=== PATIENT | male | born 1980 | race Caucasian/White ===

== ENCOUNTER 2017-02-17 21:53 | Observation (INO) ==
[2017-02-18 00:05] LABS: Basophils # 0.1 K/mcL (0.0-0.2); Basophils % 0.6 %; Eosinophils # 0.5 K/mcL (0.0-0.6); Eosinophils % 3.2 %; Hematocrit 43.5 % (37.5-50.1); Hemoglobin 14.8 g/dL (12.9-16.9); Immature Granulocytes % 0.2 % (0-4); Lymphocytes % 42.1 %; Mean Corpuscular Volume 88.2 fL (83.0-100.0); Mean Platelet Volume 9.1 fL (9.4-12.4); Monocytes # 0.9 K/mcL (0.0-1.3); Monocytes % 6.6 %; Neutrophils # 6.7 K/mcL (1.6-8.9); Platelet Count 220 K/mcL (140-400); Red Blood Count 4.93 M/mcL (4.19-5.50); Red Cell Distribution Width 13.6 % (11.5-14.5); Segmented Neutrophils % 47.3 %
[2017-02-18 00:11] LABS: INR 1.4; Prothrombin Time 14.8 Seconds (9.4-12.1)
[2017-02-18 00:13] LABS: Activated Partial Thrombo Time 36.2 Seconds (26.0-36.0)
[2017-02-18 00:19] LABS: BUN/Creatinine Ratio 11 (6-26); Blood Urea Nitrogen 10 mg/dL (8-26); Calcium 9.4 mg/dL (8.6-10.8); Carbon Dioxide 22 mEq/L (19-29); Chloride 109 mEq/L (98-109); Glucose 97 mg/dL (70-99); Lipase 39 Units/L (8-78); Osmolality,Calculated 289 (280-300); Sodium 140 mEq/L (136-145); eGFR For African Americans > 60 (> 60); eGFR For Non-African Americans > 60 (> 60)
--- NOTE | 2017-02-18 01:42 | Emergency Department Note ---
Disposition Clinical Impression: IVC thrombosis Abdominal pain Qualifiers: Abdominal location: right upper quadrant Qualified Code(s): R10.11 - Right upper quadrant pain Leukocytosis Qualifiers: Leukocytosis type: other Qualified Code(s): D72.828 - Other elevated white blood cell count Disposition: Admitted As Inpatient Condition: Fair Referrals: NO,PCP [Primary Care Provider] - Forms: Work/School Release, ED Satisfaction Letter Time of Disposition: 06:49 Abdominal Pain HPI - General Chief Complaint: ED Abdominal Pain Stated Complaint: abdominal pain Time Seen by Provider: 02/17/17 22:39 Source: patient Mode of arrival: ambulatory Limitations: no limitations Nursing Notes Reviewed: Yes Vital Signs Reviewed: Yes - History of Present Illness HPI Narrative: 36-year-old male with right upper quadrant pain for the last 2 weeks, patient does a lot of gallbladder is no history of cholecystitis. He does have a history of factor V Leiden deficiency, and is chronically anticoagulated on Eliquis, adding failed warfarin and Xarelto. Patient states it out of 10 right upper quadrant pain with radiation to his back. States is worse after meals. He has had some nausea and vomiting as well denies fever chills shortness of breath or chest pain Pt Subjective Complaint: abdominal pain Onset (ago): day(s) (14) Consistency: intermittent Location: RUQ Pain Severity: moderate Pain Scale: 9 Quality: cramping, aching Radiation: RUQ, back Migration to: no migration Improves with: nothing Worsens with: nothing Associated symptoms: Reports: denies other symptoms, nausea, vomiting, hematemesis. Denies: diarrhea, fever, chills, hematochezia - Related Data Home Medications Medication Instructions Recorded Confirmed Apixaban [Eliquis] 5 mg PO DAILY 09/24/16 02/18/17 Famotidine [Pepcid] 20 mg PO DAILY PRN 02/18/17 02/18/17 Allergies Allergy/AdvReac Type Severity Reaction Status Date / Time Penicillins Allergy Hives Verified 02/18/17 06:35 All systems ED: reviewed and negative except as stated. 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 HEENT: NCAT, sclera anicteric, PERRLA bilaterally, normal external ears bilaterally, nasal septum nondeviated, average dentition, MMM Neck: normal inspection, neck is supple, trachea midline Resp: normal chest inspection, CTA bilaterally, no resp distress CV: RRR, no m/g/r GI: Positive Diane sign right upper quadrant tenderness no guarding or rigidity , no peritoneal signs, bowel sounds 4 quadrants. Back: normal inspection, no tenderness to palpation Neuro: A&O3, no gross motor or sensory deficits bilaterally Skin: No rashes, skin warm, dry, intact - General General appearance: alert, in no apparent distress Course Course Narrative: 36-year-old male with right upper quadrant tenderness to palpation, ultrasound gallbladder ordered basic lab work shows a leukocytosis. - Reevaluation(s) Reevaluation #1: After evaluation, also low bladder was negative, CT abdomen demonstrated a left common iliac venous thrombosis possible IVC thrombosis, I discussed the findings with the vascular surgeon Dr. Tyler who states of these are likely chronic occlusions, no IVC indication, however given that the patient is on Eliquis he does recommend that the patient be admitted and a consultation to hematology for further evaluation. Time: 06:30 Reevaluation #2: Spoke with the hospitalist service to admit the patient, the hospitalist once to hold off on heparin at this time given the patient is on Eliquis, Dr Falk acepting patient in stable condition. Time: 06:48 Vital Signs Temperature 98.5 F 02/17/17 23:43 Pulse Rate 83 02/17/17 23:43 Respiratory Rate 20 02/17/17 23:43 Blood Pressure 130/91 02/17/17 23:43 O2 Sat by Pulse Oximetry 96 02/17/17 23:43 Temperature 98.5 F 02/17/17 23:43 Pulse Rate 84 03/28/17 04:24 Respiratory Rate 16 02/18/17 04:24 Blood Pressure 124/88 02/18/17 04:24 O2 Sat by Pulse Oximetry 98 02/18/17 04:24 Oxygen Delivery Oxygen Delivery Room Air Abdominal Pain - MDM Narrative Medical decision making narrative: 36-year-old male with DrKaila Factor V Leiden deficiency right upper quadrant pain and leukocytosis and IVC thrombosis, admitted to medicine service for hematology consult, further evaluation - Differential Diagnosis Differential Diagnosis: Likely: diverticulitis, diverticulosis - Medical Records Medical records reviewed: Yes I reviewed the patient's medical records. - Lab Data Lab results reviewed: Yes I reviewed the patient's lab results. Result diagrams: 02/17/17 23:54 02/17/17 23:54 Lab Results 02/17/17 02/17/17 02/17/17 Range/Units 22:21 23:54 23:54 WBC 14.2 H (4.3-11.1) K/mcL RBC 4.93 (4.19-5.50) M/mcL Hgb 14.8 (12.9-16.9) g/dL Hct 43.5 (37.5-50.1) % MCV 88.2 (83.0-100.0) fL MCH 30.0 (28.0-33.3) pg MCHC 34.0 (31.6-35.5) g/dL RDW 13.6 (11.5-14.5) % Plt Count 220 (140-400) K/mcL MPV 9.1 L (9.4-12.4) fL Immature Gran % 0.2 (0-4) % Seg Neutrophils % 47.3 % Lymphocytes % 42.1 % Monocytes % 6.6 % Eosinophils % 3.2 % Basophils % 0.6 % Neutrophils # 6.7 (1.6-8.9) K/mcL Lymphocytes # 6.0 H (0.6-4.6) K/mcL Monocytes # 0.9 (0.0-1.3) K/mcL Eosinophils # 0.5 (0.0-0.6) K/mcL Basophils # 0.1 (0.0-0.2) K/mcL PT 14.8 H (9.4-12.1) Seconds INR 1.4 APTT 36.2 H (26.0-36.0) Seconds Sodium (136-145) mEq/L Potassium (3.5-4.5) mEq/L Chloride (98-109) mEq/L Carbon Dioxide (19-29) mEq/L BUN (8-26) mg/dL Creatinine (0.72-1.25) mg/dL Est GFR ( Amer) (> 60) Est GFR (Non-Af Amer) (> 60) BUN/Creatinine Ratio (6-26) Glucose (70-99) mg/dL Calculated Osmolality (280-300) Calcium (8.6-10.8) mg/dL Total Bilirubin (0.2-1.2) mg/dL Direct Bilirubin (0.0-0.5) mg/dL Indirect Bilirubin (0.0-1.2) mg/dL AST (5-34) Units/L ALT (0-55) Units/L Alkaline Phosphatase (38-126) Units/L Troponin I (0-0.03) ng/mL Serum Total Protein (6.0-8.3) g/dL Albumin (3.5-5.0) g/dL Globulin (2.4-3.5) g/dL Albumin/Globulin Ratio (1.1-2.2) Lipase (8-78) Units/L Urine Color Yellow (Yellow) Urine Clarity Clear (Clear) Urine pH 6.5 (5.0-8.0) pH Units Ur Specific [place] 1.006 L (1.010-1.025) Urine Protein Negative (Neg-Trace) mg/dL Urine Glucose (UA) Normal (Normal) mg/dL Urine Ketones Negative (Negative) mg/dL Urine Blood Negative (Negative) Urine Nitrite Negative (Negative) Urine Bilirubin Negative (Negative) Urine Urobilinogen Normal (Normal) mg/dL Ur Leukocyte Esterase Negative (Negative) Ur Culture Indicated? NO (NO) 02/17/17 02/17/17 02/17/17 Range/Units 23:54 23:54 23:56 WBC (4.3-11.1) K/mcL RBC (4.19-5.50) M/mcL Hgb (12.9-16.9) g/dL Hct (37.5-50.1) % MCV (83.0-100.0) fL MCH (28.0-33.3) pg MCHC (31.6-35.5) g/dL RDW (11.5-14.5) % Plt Count (140-400) K/mcL MPV (9.4-12.4) fL Immature Gran % (0-4) % Seg Neutrophils % % Lymphocytes % % Monocytes % % Eosinophils % % Basophils % % Neutrophils # (1.6-8.9) K/mcL Lymphocytes # (0.6-4.6) K/mcL Monocytes # (0.0-1.3) K/mcL Eosinophils # (0.0-0.6) K/mcL Basophils # (0.0-0.2) K/mcL PT (9.4-12.1) Seconds INR APTT (26.0-36.0) Seconds Sodium 140 (136-145) mEq/L Potassium 4.0 (3.5-4.5) mEq/L Chloride 109 (98-109) mEq/L Carbon Dioxide 22 (19-29) mEq/L BUN 10 (8-26) mg/dL Creatinine 0.93 (0.72-1.25) mg/dL Est GFR ( Amer) > 60 (> 60) Est GFR (Non-Af Amer) > 60 (> 60) BUN/Creatinine Ratio 11 (6-26) Glucose 97 (70-99) mg/dL Calculated Osmolality 289 (280-300) Calcium 9.4 (8.6-10.8) mg/dL Total Bilirubin 0.4 (0.2-1.2) mg/dL Direct Bilirubin 0.1 (0.0-0.5) mg/dL Indirect Bilirubin 0.3 (0.0-1.2) mg/dL AST 16 (5-34) Units/L ALT 15 (0-55) Units/L Alkaline Phosphatase 70 (38-126) Units/L Troponin I 0.01 (0-0.03) ng/mL Serum Total Protein 7.9 (6.0-8.3) g/dL Albumin 4.2 (3.5-5.0) g/dL Globulin 3.7 H (2.4-3.5) g/dL Albumin/Globulin Ratio 1.1 (1.1-2.2) Lipase 39 (8-78) Units/L Urine Color (Yellow) Urine Clarity (Clear) Urine pH (5.0-8.0) pH Units Ur Specific [place] (1.010-1.025) Urine Protein (Neg-Trace) mg/dL Urine Glucose (UA) (Normal) mg/dL Urine Ketones (Negative) mg/dL Urine Blood (Negative) Urine Nitrite (Negative) Urine Bilirubin (Negative) Urine Urobilinogen (Normal) mg/dL Ur Leukocyte Esterase (Negative) Ur Culture Indicated? (NO) - Radiology Data Radiology results reviewed: Yes I reviewed the patient's radiology results. Chest X-Ray 02/18/17 00:05 IMPRESSION: 1. No active pulmonary disease. D/ / Pavel Torre MD / Pavel Torre MD Interpreting Provider: Pavel Torre MD Gallbladder Ultrasound 02/18/17 01:34 IMPRESSION: 1. Unremarkable right upper quadrant ultrasound with no sonographic evidence for acute cholecystitis. D/ / Pavel Torre MD / Pavel Torre MD Interpreting Provider: Pavel Torre MD Abdomen/Pelvis CT 02/18/17 04:33 IMPRESSION: 1. No acute intra-abdominal abnormality. 2. No acute intrapelvic abnormality. 3. Left common iliac vein deep venous thrombosis. 4. Non opacification of the infrarenal inferior vena cava. I am uncertain if this just due to non opacification or if there is infrarenal caval thrombosis. 5. 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 6. Cavernous transformation of the portal vein. D/ / Pavel Torre MD / Pavel Torre MD Interpreting Provider: Pavel Torre MD - EKG Data EKG attestation: Yes I reviewed and interpreted this EKG. EKG shows normal: sinus rhythm Rate: normal (80 bpm normal sinus rhythm normal QRS and QT and RI intervals) Rhythm: NSR [place]/QRS: normal
[2017-02-18 01:52] LABS: Albumin 4.2 g/dL (3.5-5.0); Albumin/Globulin Ratio 1.1 (1.1-2.2); Bilirubin,Direct 0.1 mg/dL (0.0-0.5); Bilirubin,Indirect 0.3 mg/dL (0.0-1.2); Bilirubin,Total 0.4 mg/dL (0.2-1.2); Globulin 3.7 g/dL (2.4-3.5); Total Protein 7.9 g/dL (6.0-8.3)
[2017-02-18] MEDS ORDERED: Ondansetron 4 MG/2 ML VIAL IVP ONE (02:16)
[2017-02-18] MEDS ORDERED: *HR* HYDROmorphone (PF) 1 MG/ML SYRINGE IVP ONE (02:16)
[2017-02-18] MEDS ORDERED: 0.9 % Sodium Chloride 1,000 ML IVC ONE (02:16)
[2017-02-18 04:49] LABS: Bilirubin,Urine Negative (Negative); Blood,Urine Negative (Negative); Clarity,Urine Clear (Clear); Color,Urine Yellow (Yellow); Glucose,Urine (UA) Normal (Normal); Ketones,Urine Negative (Negative); Leukocyte Esterase,Urine Negative (Negative); Nitrite,Urine Negative (Negative); PH,Urine 6.5 pH Units (5.0-8.0); Protein,Urine Negative (Neg-Trace); Specific Gravity,Urine 1.006 (1.010-1.025); Urobilinogen,Urine Normal (Normal)
[2017-02-18] MEDS ORDERED: *HR* Morphine 2 MG/ML SYRINGE IV ONE (05:21)
[2017-02-18] MEDS ORDERED: *HR* Heparin 5,000 UNIT/ML VIAL IVP PRN ×2 (06:26)
[2017-02-18] MEDS ORDERED: Heparin 25,000 UNIT/500 ML D5W 25,000 UNIT/500 ML MLS IVC SCH (06:30)
[2017-02-18] MEDS: *HR* Heparin 5,000 UNIT/ML VIAL IVP ONE ×2 (06:36→07:01)
[2017-02-18 08:17] VITALS: BP 139/77
[2017-02-18] MEDS ORDERED: *HR* HYDROmorphone (PF) 1 MG/ML SYRINGE IVP PRN (08:23)
--- NOTE | 2017-02-18 16:43 | Emergency Department Note ---
START Narrative - START START: I examined this patient and my medical decision-making was reviewed with the APPLIED RESEARCH DIRECTOR/PA/Advanced Practice Nurse/Resident Physician. I agree with the documented findings, disposition and treatment plan as described except to the extent set forth below. 36 yo male present with RUQ abdominal pain. +worse after eating and with palpation and movement. Pt denies fever, chills, jaundice, diarrhea, hematochezia, melena. Pt reports history of cholelithiasis in the past. + history of FVL on elliquis. US of the RUQ negative for acute cholecystitis. CT abd/pelvis with IV contrast shows clot in IVC and common illiac. Pt denies history of clot in these places in the past. Resident spoke with the vascular surgeon who recommended admission to hospitalist. Hospitalist requested to hold heparin until able to speak with hematology.
--- NOTE | 2017-02-19 08:50 | Electrocardiograph Report ---
[address] [address] Test Date: 2017-02-18 Pat Name: Jax Rooney Department: 102 Room: 3A93 Gender: M Dba: Heath : 1980 Requested By: Ravi Diaz Order Number: [id number] Reading MD: Patrice Hanks MD Measurements Intervals [place] Rate: 80 P: 35 NM: 137 QRS: 58 QRSD: 83 T: 86 QT: 333 QTc: 370 Interpretive Statements SINUS RHYTHM Electronically Signed On 02-19-2017 8:48:11 EDT by Patrice Hanks MD
--- NOTE | 2017-02-22 18:09 | Event Note ---
Date of Encounter: 02/22/17 Time of Encounter: 18:07 I was assigned this patient but before I reach to emergency room patient signed out AMA. I did not see this patient I am documenting this note as per the direction of HIM
== END 2017-02-18 10:20 | disposition left against medical advice (07) ==
LOC: EMEROO 21:53 → 3ANU 21:53
PROVIDERS: ADMIT Internal Medicine; ATTEND Internal Medicine

== ENCOUNTER 2017-02-19 21:04 | Inpatient (IN) ==
--- NOTE | 2017-02-19 23:21 | Emergency Department Note ---
Disposition Clinical Impression: Thrombosis Abdominal pain Qualifiers: Abdominal location: right upper quadrant Qualified Code(s): R10.11 - Right upper quadrant pain Disposition: Admitted As Inpatient Condition: Fair Time of Disposition: 23:44 General Adult HPI - General Chief complaint: ED General Medical Stated complaint: Blood Clots Time Seen by Provider: 02/19/17 23:11 Source: patient Nursing Notes Reviewed: Yes Vital Signs Reviewed: Yes - History of Present Illness HPI Narrative: Patient is a 36-year-old male with a past medical history significant for factor V Leiden anticoagulated on Eliquis. States he has had right-sided abdominal pain for the last week. He was seen here in the emergency department yesterday and was evaluated and found to have blood clot in his left iliac vein and IVC. They had recommended admission at that time but patient ended up leaving AGAINST MEDICAL ADVICE. Patient states today, he has had worsening pain in that region. Denies any nausea, vomiting, fever or chills. No chest pain or difficulty breathing. No problems with urination or bowel movements. Patient has had multiple prior blood clots including pulmonary embolisms and DVTs. States he used to follow with Dr. Mora with hematology but moved out of the area and stopped seeing him. Onset (ago): week(s) Location: abdomen Radiation: non-radiation Pain Severity: severe Pain Scale: 7 Quality: aching Consistency: constant Improves with: nothing Worsens with: nothing Associated symptoms: Denies: chest pain, cough, fever/chills, loss of appetite, nausea/vomiting, shortness of breath Treatments Prior to Arrival: none - Related Data Home Medications Medication Instructions Recorded Confirmed Apixaban [Eliquis] 5 mg PO BID 09/24/16 02/20/17 Citalopram Hydrobromide [Celexa] 40 mg PO DAILY 02/20/17 02/20/17 Allergies Allergy/AdvReac Type Severity Reaction Status Date / Time Penicillins Allergy Hives Verified 02/20/17 07:33 All systems ED: reviewed and negative except as stated. Past Medical History - Past Medical History Attestation: Yes The following information was validated with the patient. Source: patient Medical history: Reports: DVT, hypertension, myocardial infarction, pulmonary embolus, other Surgical history: Reports: angioplasty/stent, splenectomy Psychiatric history: Reports: no psych history - Social History Smoking Status: Current every day smoker Smokeless Tobacco Status: No Alcohol use: Reports: none Drug use: Reports: marijuana Physical Exam - General Limitations: no limitations General appearance: alert, in no apparent distress - Head Head exam: atraumatic, normocephalic, normal inspection - Eye Eye exam: Present: normal appearance, PERRL, EOMI - ENT ENT exam: normal exam, normal oropharynx, mucous membranes moist - Neck Neck exam: Present: normal inspection, full ROM, trachea midline - Chest Chest inspection: Present: normal inspection, symmetric chest wall rise - Respiratory Respiratory exam: Present: normal lung sounds bilaterally - Cardiovascular Cardiovascular exam: Present: regular rate, normal rhythm, normal heart sounds - Abdominal Exam Abdominal exam: Present: soft, tenderness, normal bowel sounds. Absent: distention, guarding, rebound, rigidity Abdominal tenderness: Present: RUQ, RLQ, severe - Extremities Exam Extremities exam: Present: normal inspection, full ROM. Absent: tenderness, pedal edema, calf tenderness - Back Exam Back exam: Present: normal inspection, full ROM. Absent: tenderness - Neurological Exam Neurological exam: Present: alert, oriented X3 - Psychiatric Psychiatric exam: Present: normal affect, normal mood - Skin Skin exam: Present: warm, dry, intact, normal color Course Course Narrative: Patient seen and examined. Diagnosed with new blood clots yesterday. History of factor V Leiden and lupus. Already anticoagulated on. He was already admitted to the hospitalist service yesterday. However patient left AGAINST MEDICAL ADVICE. He is back today with continued pain. We will place an IV and give some pain medication along with nausea medication. I spoke with hospitalist Dr. Acosta who has accepted patient for admission. Vital Signs Temperature 99.1 F 02/19/17 21:59 Pulse Rate 93 02/19/17 21:59 Respiratory Rate 18 02/19/17 21:59 Blood Pressure 140/97 02/19/17 21:59 O2 Sat by Pulse Oximetry 98 02/19/17 21:59 Temperature 97.6 F 02/20/17 05:13 Pulse Rate 77 02/20/17 05:13 Respiratory Rate 18 02/20/17 05:13 Blood Pressure 121/88 02/20/17 05:13 O2 Sat by Pulse Oximetry 97 02/20/17 05:13 Oxygen Delivery Oxygen Delivery Room Air Medical Decision Making - Medical Records Medical records reviewed: Yes I reviewed the patient's medical records. - Lab Data Lab results reviewed: Yes I reviewed the patient's lab results. Result diagrams: 02/20/17 05:47 02/20/17 05:47 - Radiology Data Radiology results reviewed: Yes I reviewed the patient's radiology results. Attestation Statement - Attestation Attestation: I, Amol Carmichael MD, personally performed a history and physical exam of the patient and discussed their management with the resident. I reviewed the resident's note and agree with the documented findings, medical decision making , and plan of care. Patient is a 36-year-old male who was seen here yesterday and evaluated for some right-sided abdominal pain. He had a CT of the abdomen and pelvis which revealed a chronic thrombus in the inferior vena cava but also some new clot in the left common iliac vein. Also some nonopacification of the infrarenal inferior vena cava which could possibly represent thrombus. The plan was to admit the patient to the hospital yesterday however he left AMA. He was called back today and advised to return because of the findings on his CT he has no new symptoms. He continues to complain of the right upper abdominal pain. On examination he is a well-developed well-nourished male in no acute distress. He is alert and oriented 3. There is no cyanosis or diaphoresis. Breath sounds are clear and equal bilaterally. Heart regular rate and rhythm. Abdomen soft with normal bowel sounds. There is mild diffuse right-sided abdominal tenderness. No tympany or distention. The hospitalist, Dr. Acosta, was consulted and accepted admission of the patient.
[2017-02-19] MEDS ORDERED: *HR* HYDROmorphone (PF) 1 MG/ML SYRINGE IVP ONE (23:24)
[2017-02-19] MEDS ORDERED: Ondansetron 4 MG/2 ML VIAL IVP ONE (23:24)
--- NOTE | 2017-02-20 00:20 | Internal Med History&Physical ---
Date of Encounter: 02/19/17 Time of Encounter: 23:55 Assessment and Plan (1) Recurrent deep vein thrombosis Current visit: Yes Status: Acute Patient with history of SLE and multiple thrombotic events, admitted due to abdominal pain and findings of possible IVC thrombosis. The patient is already on anticoagulation, he took his last dose of eliquis earlier tonight. At this point, since he took eliquis only a few hours ago will not initiate anticoagulation with heparin drip. We will request a consultation with hematology for further recommendations in regards to continuity of anticoagulation. Evaluation by vascular surgery will be requested. We will obtain admission labs. No labs were obtained in the emergency department. Plan of care was discussed in detail with the patient, he expressed understanding. (2) IVC thrombosis Current visit: No Status: Acute See above. (3) Systemic lupus erythematosus Current visit: Yes Status: Acute Qualifiers: Systemic lupus erythematosus type: unspecified Systemic lupus erythematosus organ involvement: unspecified Qualified Code(s): M32.9 - Systemic lupus erythematosus, unspecified (4) Factor V deficiency Current visit: Yes Status: Acute (5) Tobacco use disorder Current visit: Yes Status: Acute Nicotine replacement therapy will be provided. Smokes 1 pack of cigarettes daily. (6) Anxiety and depression Current visit: Yes Status: Acute Patient is not taking treatment. (7) Marijuana use Current visit: Yes Status: Acute Patient states that he uses marijuana occasionally. (8) Abdominal pain Current visit: Yes Status: Acute Qualifiers: Abdominal location: right upper quadrant Qualified Code(s): R10.11 - Right upper quadrant pain Internal Medicine - H&P: HPI Chief complaint: Abd pain Admitted From: Emergency Dept Plans for Post Hospital Care: Home History of present illness: Mr. Rooney is a 36 year old male with PMH of SLE, factor V, HTN, chronic active smoker, anxiety depression, multiple blood clots on chronic anticoagulation with eliquis. He is complaining of right lower quadrant pain since last 2 weeks, presented to the emergency department 2 days ago and was found to have a blood clot in the left common iliac vein, possible IVC blood clot. He was recommended to stay in the hospital for admission, however he signed out the names medical advice. Today he comes back complaining of the same kind of pain, he denies fever, shortness of breath, chest pain, syncope, diarrhea, constipation, melena, cough, hemoptysis. Initial blood pressure was 140/97, temperature 99.1, heart rate 92/m, respiratory rate 18 per minute, blood pressure 140/94, oxygen saturation 98%. The patient was alert, awake, oriented. He was seen and examined while he was still in the ER holding area. The patient states that he took his last dose of eliquis today at 7:30 PM. He takes regularly eliquis twice a day. Past Med Surg Social Fam HX - Past Medical History Medical history: DVT, hypertension, myocardial infarction, pulmonary embolus, other Psychiatric history: no psych history - Past Surgical History Surgical History: angioplasty/stent, splenectomy - Social History Smoking Status: Current every day smoker Smokeless Tobacco Status: No Alcohol use: none Drug use: marijuana - Family History Maternal Grandmother Hx Family Cardiac Disorders: No Hx Family Respiratory Disorders: No Hx Family Cancer: Yes (lymphomia) Hx Family GI Disorders: No Hx Family Endocrine Disorder: No Hx Family Neuromuscular Disorders: No Hx Family Neurologic Disorders: No Hx Family HEENT Disorders: No Hx Family Autoimmune Disorders: No Internal Medicine - H&P: Meds Apixaban [Eliquis] 5 mg PO DAILY 09/24/16 [History] Famotidine [Pepcid] 20 mg PO DAILY PRN 02/18/17 [History] Allergies Penicillins Allergy (Verified 02/19/17 22:03) Hives All Systems PM: A 10-system review of systems was performed and is negative for pertinent findings except as documented above in the HPI. - Constitutional Constitutional: as per HPI, no chills, no fever(s), no night sweats - EENT Eyes: as per HPI, no change in vision, no discharge, no pain, no photophobia Ears: as per HPI, no ear discharge, no ear pain, no tinnitus Nose, mouth and throat: as per HPI, no dysphagia, no nasal discharge, no neck pain, no sore throat - Breasts Breasts: as per HPI - Cardiovascular Cardiovascular ROS IM: as per HPI, no chest pain, no diaphoresis, no dyspnea, no lightheadedness, no palpitations, no syncope - Respiratory Respiratory: as per HPI, no cough, no dyspnea, no wheezing, no excessive phlegm production - Gastrointestinal Gastrointestinal: as per HPI, no abdominal pain, no diarrhea, no hematemesis, no hematochezia, no melena, no nausea, no vomiting - Genitourinary Genitourinary ROS male: as per HPI - Musculoskeletal Musculoskeletal ROS IM: as per HPI, no numbness, no tingling - Integumentary Integumentary IM: as per HPI, no rash, no unusual bruising - Neurological Neurological ROS: as per HPI, no confusion, no convulsions, no focal weakness, no numbness, no tingling, no tremor(s) - Psychiatric Psychiatric: as per HPI - Endocrine Endocrine IM: as per HPI - Hematologic/Lymphatic Hematologic/Lymphatic: as per HPI, no easy bruising - Constitutional Vitals: Temp Pulse Resp BP Pulse Ox 99.1 F 85 16 124/89 96 02/19/17 21:59 02/20/17 00:08 02/20/17 00:08 02/20/17 00:08 02/20/17 00:08 General appearance: Present: cooperative, A&O X 3, pleasant, no acute distress - Head Head exam: Present: atraumatic, normocephalic - Eye Eye exam: Present: PERRL, conjuntiva pink, sclera anicteric Pupils: Present: PERRL - Neck Neck exam general surgery: Present: supple, trachea midline. Absent: lymphadenopathy - Respiratory Respiratory exam: Present: CTAB. Absent: accessory muscle use, rales, rhonchi, wheezes - Cardiovascular Cardiovascular exam: Present: RRR, +S1, +S2. Absent: diastolic murmur, gallop, rubs, systolic murmur - GI/Abdominal GI/Abdominal exam: Present: normal bowel sounds, soft. Absent: distended, tenderness Additional comments: Mild tenderness upon palpation of the right lower quadrant. - Extremities Exam Extremities exam: Present: warm, radial pulses palpable and symetrical. Absent : calf tenderness, cyanotic, pedal edema - Neurological Exam Neurological exam: Present: CN II-XII intact, oriented X3, no focal deficits. Absent: pronater drift, facial droop, speech deficit - Skin Skin exam: Present: dry, intact
[2017-02-20] MEDS ORDERED: Acetaminophen 325 MG TABLET PO PRN (00:28)
[2017-02-20] MEDS ORDERED: Naloxone 0.4 MG/ML INJ IVP PRN (00:28)
[2017-02-20] MEDS ORDERED: Ondansetron 4 MG/2 ML VIAL IVP PRN (00:28)
[2017-02-20] MEDS: Nicotine 21 MG PATCH.TD24 TD SCH ×2 (02:07→07:53)
[2017-02-20] MEDS: D5% in 0.45% NACL 1,000 ML IVC SCH ×2 (02:08→10:12)
[2017-02-20] MEDS: *HR* Morphine 2 MG/ML SYRINGE IVP PRN ×5 (02:22→20:18)
[2017-02-20 06:04] LABS: Basophils # 0.1 K/mcL (0.0-0.2); Eosinophils # 0.5 K/mcL (0.0-0.6); Eosinophils % 4.3 %; Hematocrit 40.4 % (37.5-50.1); Hemoglobin 13.7 g/dL (12.9-16.9); Immature Granulocytes % 0.2 % (0-4); Lymphocytes # 6.3 K/mcL (0.6-4.6); Lymphocytes % 55.5 %; Mean Corpuscular HGB Conc 33.9 g/dL (31.6-35.5); Mean Corpuscular Volume 88.6 fL (83.0-100.0); Monocytes % 8.4 %; Neutrophils # 3.5 K/mcL (1.6-8.9); Platelet Count 218 K/mcL (140-400); Red Blood Count 4.56 M/mcL (4.19-5.50); Red Cell Distribution Width 13.5 % (11.5-14.5); Segmented Neutrophils % 30.6 %
[2017-02-20 06:07] LABS: INR 1.3
[2017-02-20 06:10] LABS: Activated Partial Thrombo Time 34.6 Seconds (26.0-36.0)
[2017-02-20 06:20] LABS: Alanine Aminotransferase 10 Units/L (0-55); Albumin 3.6 g/dL (3.5-5.0); Albumin/Globulin Ratio 1.1 (1.1-2.2); Alkaline Phosphatase 65 Units/L (38-126); Aspartate Amino Transferase 14 Units/L (5-34); BUN/Creatinine Ratio 13 (6-26); Bilirubin,Total 0.3 mg/dL (0.2-1.2); Blood Urea Nitrogen 12 mg/dL (8-26); Calcium 9.1 mg/dL (8.6-10.8); Carbon Dioxide 23 mEq/L (19-29); Chloride 109 mEq/L (98-109); Globulin 3.3 g/dL (2.4-3.5); Glucose 99 mg/dL (70-99); Magnesium 2.3 mg/dL (1.6-2.6); Osmolality,Calculated 290 (280-300); Potassium 4.1 mEq/L (3.5-4.5); Sodium 140 mEq/L (136-145); Total Protein 6.9 g/dL (6.0-8.3); eGFR For African Americans > 60 (> 60); eGFR For Non-African Americans > 60 (> 60)
[2017-02-20] MEDS: Famotidine 20 MG/2 ML VIAL IVP SCH ×2 (06:33→17:00)
[2017-02-20] MEDS ORDERED: *HR* Heparin 5,000 UNIT/ML VIAL IVP PRN ×2 (08:50)
[2017-02-20 09:24] LABS: Hematocrit 42.6 % (37.5-50.1); Mean Corpuscular HGB Conc 32.9 g/dL (31.6-35.5); Mean Corpuscular Hemoglobin 29.3 pg (28.0-33.3); Mean Corpuscular Volume 89.1 fL (83.0-100.0); Mean Platelet Volume 8.7 fL (9.4-12.4); Platelet Count 235 K/mcL (140-400); Red Blood Count 4.78 M/mcL (4.19-5.50); Red Cell Distribution Width 13.5 % (11.5-14.5)
[2017-02-20 09:29] LABS: INR 1.3; Prothrombin Time 13.8 Seconds (9.4-12.1)
[2017-02-20 09:31] LABS: Activated Partial Thrombo Time 35.2 Seconds (26.0-36.0)
--- NOTE | 2017-02-20 09:35 | Internal Med Progress Note ---
<Mohsen Avery - Last Filed: 02/20/17 13:21> Date of Encounter: 02/19/17 Time of Encounter: 09:35 - Assessment and plan (1) Recurrent deep vein thrombosis Status: Acute Assessment and plan: Patient with a history of Factor V Leiden, SLE, and multiple thrombotic events including PE and DVT who is on Eliquis bid who was admitted with complaint of RLQ and RUQ abdominal pain. Patient left AMA two days ago from ED. 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 Patient reports he has failed therapy on coumadin, lovenox, and xarelto in the past. Has been taking Eliquis for the past two years. PT 14, INR 1.3, PTT 34.6 Hematology consulted Continue heparin drip. Hold Eliquis. (2) Abdominal pain Status: Acute Assessment and plan: Patient presents with complaint of RUQ and RLQ deep achy pain. CT 02/18/17 revealed no intra abdominal processes. RUQ ultrasound 02/18/17 revealed an unremarkable RUQ with no evidence of acute cholecystitis. Abdominal pain secondary to deep vein thromboses. Continue pain management. Qualifiers: Abdominal location: right upper quadrant Qualified Code(s): R10.11 - Right upper quadrant pain (3) IVC thrombosis Status: Acute (4) Factor V Leiden Status: Chronic (5) Systemic lupus erythematosus Status: Acute Assessment and plan: History of SLE, no current therapy. Qualifiers: Systemic lupus erythematosus type: unspecified Systemic lupus erythematosus organ involvement: unspecified Qualified Code(s): M32.9 - Systemic lupus erythematosus, unspecified (6) Tobacco use disorder Status: Acute Assessment and plan: Patient continues to smoke daily. Counseled patient the importance of smoking cessation especially in the presence of his comorbidities. Nicotine patch ordered. - Subjective Interval history: Patient reports doing well overnight. Patient still complaints of mild 4/10 right upper and right lower quadrant pain that is achy in nature. Patient denies fevers, chills, sweats, changes in vision or hearing, nausea, vomiting, chest pain, shortness of breath, changes in bowels or bladder, weakness, or loss of sensation. - Constitutional Vitals: Temp Pulse Resp BP Pulse Ox 97.4 F L 70 16 128/99 98 02/20/17 08:22 02/20/17 08:22 02/20/17 08:22 02/20/17 08:22 02/20/17 09:01 General appearance: Present: cooperative, A&O X 3, pleasant, no acute distress, answers questions appropriately - Head Head exam: Present: atraumatic, normal inspection, normocephalic - Eye Eye exam: Present: normal appearance - ENT ENT exam: Present: mucous membranes moist, normal exam, normal external ear exam , normal oropharynx - Neck Neck exam general surgery: Present: full ROM, normal inspection, supple, trachea midline. Absent: tenderness - Respiratory Respiratory exam: Present: wheezes. Absent: rales, rhonchi - Cardiovascular Cardiovascular exam: Present: RRR, +S1, +S2. Absent: diastolic murmur, irregular rhythm, JVD, systolic murmur - GI/Abdominal GI/Abdominal exam: Present: normal bowel sounds, soft, tenderness (mild RUQ and RLQ). Absent: distended, guarding - Extremities Exam Extremities exam: Present: full ROM, normal inspection, warm. Absent: pedal edema, tenderness - Back Exam Back exam: Present: full ROM, normal inspection. Absent: tenderness - Neurological Exam Neurological exam: Present: alert, oriented X3, no focal deficits, strengths equal and symetr throughout. Absent: facial droop, speech deficit - Psychiatric Psychiatric exam: Present: normal affect, normal mood - Skin Skin exam: Present: dry, intact, normal color, warm. Absent: diaphoretic, erythema, pallor Internal Medicine: Result - Labs CBC & Chem 7: 02/20/17 09:09 02/20/17 05:47 Labs: Short CBC 02/20/17 02/20/17 Range/Units 05:47 09:09 WBC 11.3 H 8.7 (4.3-11.1) K/mcL Hgb 13.7 14.0 (12.9-16.9) g/dL Hct 40.4 42.6 (37.5-50.1) % Plt Count 218 235 (140-400) K/mcL Neutrophils # 3.5 (1.6-8.9) K/mcL BMP 02/20/17 05:47 Sodium 140 Potassium 4.1 Chloride 109 Carbon Dioxide 23 BUN 12 Creatinine 0.91 Glucose 99 Calcium 9.1 Cardiac Enzymes 02/20/17 Range/Units 05:47 Troponin I 0.00 (0-0.03) ng/mL Liver Function 02/20/17 Range/Units 05:47 Total Bilirubin 0.3 (0.2-1.2) mg/dL AST 14 (5-34) Units/L ALT 10 (0-55) Units/L Alkaline Phosphatase 65 (38-126) Units/L Albumin 3.6 (3.5-5.0) g/dL - ABG Interpretation ABG results: PT/INR, D-dimer PT 13.8 Seconds (9.4-12.1) H 02/20/17 09:09 Consult Discharge Plan - Plan Instructions: Tramadol (By mouth), Dabigatran (By mouth) Additional Instructions: pcp asmita will on march 04 at 2 pm ..please come around 140 if you do not have your new patient packet filled out. Referrals: Thee Mora MD [Partnered Physician] - Asmita Murrell RN [Registered Nurse] - (please come at 140 if you do not have your new patient packet) NO,PCP [Primary Care Provider] - Prescriptions: Dabigatran [Pradaxa] 150 mg PO BID #60 capsule Tramadol HCl [Ultram] 50 mg PO BID PRN #14 tab PRN Reason: Pain <Rebeca,Chauncey P - Last Filed: 02/22/17 18:06> Date of Encounter: 02/22/17 - Constitutional Vitals: Temp Pulse Resp BP Pulse Ox 97.8 F 87 16 129/78 97 02/22/17 07:00 02/22/17 07:00 02/22/17 07:00 02/22/17 07:00 02/22/17 07:00 Internal Medicine: Result - Labs CBC & Chem 7: 02/22/17 07:18 02/22/17 07:18 Labs: Short CBC 02/22/17 Range/Units 07:18 WBC 9.8 (4.3-11.1) K/mcL Hgb 14.4 (12.9-16.9) g/dL Hct 43.1 (37.5-50.1) % Plt Count 268 (140-400) K/mcL Neutrophils # 5.1 (1.6-8.9) K/mcL BMP 02/22/17 07:18 Sodium 140 Potassium 4.5 Chloride 111 H Carbon Dioxide 19 BUN 12 Creatinine 0.88 Glucose 88 Calcium 9.4 - ABG Interpretation ABG results: PT/INR, D-dimer PT 12.2 Seconds (9.4-12.1) H 02/22/17 07:18 - Attending Attestation I examined this patient and my medical decision-making was reviewed with the JEWEL STAKER/PA/Advanced Practice Nurse/Resident Physician. I agree with the documented findings, disposition and treatment plan as described except to the extent set forth below.
[2017-02-20] MEDS: *HR* OxyCODONE Immed Rel 5 MG TABLET PO PRN ×2 (10:04→17:13)
[2017-02-20] MEDS: Heparin 25,000 UNIT/500 ML D5W 25,000 UNIT/500 ML MLS IVC SCH (10:05)
--- NOTE | 2017-02-20 18:24 | Oncology Inp Consult Note ---
<Kyle Zuñiga Jr - Last Filed: 02/20/17 18:45> Date of Encounter: 02/19/17 Time of Encounter: 17:15 Assessment and Plan (1) DVT (deep venous thrombosis) Status: Acute Assessment and plan: The patient is admitted for deep vein thrombosis to left iliac vein. The patient has pain in his lower abdomen and right hip. The patient had these symptoms for several days prior to seeking medical treatment here at [facility]. Long history of deep vein thrombosis and factor V deficiency. The patient has a history of pulmonary embolism, deep vein thrombosis, chronic IVC thrombosis, and now, DVT left common iliac vein. The patient has been on previous blood thinners of Arixtra, Lovenox, Xarelto, and most recently, eliquis 5 mg twice daily for the last 2 years. He was last seen by Dr. Mora at [facility] in June 2015. At that time, he was switched from arixtra to eliquis 5mg BID. Last clinic note at that time suggested pradaxa BID as next alternative for anticoagulation. Patient lost to us due to patient relocation to [place], [place]. His PCP there continued the eliquis. He recently moved back to [place] and he has no PCP. At discharge, he will need a referral. He has now failed eliquis 5mg in setting of new DVT. At this time, he is OK to have a regular diet and continue heparin drip overnight. Dr Mora will see patient in the AM and make final recommendation on pradaxa and order as appropriate. Patient asking if IVC filter is appropriate and we will discuss with him tomorrow. Dr Mora advised and will see patient in the morning. Qualifiers: DVT location: lower extremity Affected thrombotic vein of extremity: iliac Laterality: left Chronicity: acute Qualified Code(s): I82.422 - Acute embolism and thrombosis of left iliac vein (2) Factor V deficiency Status: Chronic (3) Recurrent deep vein thrombosis Status: Chronic - Data of Consult Patient: known to practice within the last 3 years Consult date: 02/20/17 Requesting Physician: Chauncey Jose MD Primary Care Provider: PCP NO Family Provider: None - Consult Narrative Reason for consult: recurrent clot, common left iliac History of present illness: Mr. Clements is a 36 year old male known to the [place] hematology practice. The patient was last seen June 30, [address] Thee Mora. The patient had a history at that time of portal vein thrombosis, mesenteric thrombosis when he was already on Coumadin. He was on Lovenox, and then switched to Xarelto 20 mg per day in May 2012. He was heterozygous for MTHFR gene mutation and lupus anticoagulant positive. He also has pulmonary embolism history in February 2012. He had an episode of pulmonary embolism and he was hospitalized at [facility] in early 2014. He, he had another DVT with blockage of one of the kidney blood supply branches in June 2014. At that time Xarelto was switched to Lovenox 100 milligrams subcutaneous twice a day. Just prior to last visit with Dr Mora in June 2015, patient was in [facility] and had recently gotten released. Patient sought ER intervention on 07/06/15. A CT angiogram chest and CT abdomen and pelvis showed slight increase in the non-occlusive clot in the IVC just about the renal vein area. No PE. He was on Arixtra through Dr Everett Campos at [facility] at that time. After visit with Dr Mora, he was placed on Eliquis 5mg PO BID. In conclusion, the patient had been placed on a variety of blood thinners including Arixtra, Xarelto, Lovenox, and most recently, eliquis 5 mg twice daily for the last 18 months. The patient was lost to our practice, as the patient moved to [facility] with his girlfriend. At that time, he had a primary care provider that was writing prescriptions for his eliquis. He recently moved back to the [facility], and has no primary care provider. The patient had come to the emergency department left [place] the other day for DVT in left common iliac vein. Patient subsequenty returned, and is now hospitalized in 2ne28 on a heparin drip. Hematology consulted for anticoagulation recommendations Past Med Surg Social Fam HX - Past Medical History Medical history: DVT, hypertension, myocardial infarction, pulmonary embolus, other Psychiatric history: no psych history - Past Surgical History Surgical History: angioplasty/stent, splenectomy - Social History Smoking Status: Current every day smoker Packs per day: 1 1/2 pack day Smokeless Tobacco Status: No Alcohol use: none Drug use: marijuana - Family History Maternal Grandmother Hx Family Cardiac Disorders: No Hx Family Respiratory Disorders: No Hx Family Cancer: Yes (lymphomia) Hx Family GI Disorders: No Hx Family Endocrine Disorder: No Hx Family Neuromuscular Disorders: No Hx Family Neurologic Disorders: No Hx Family HEENT Disorders: No Hx Family Autoimmune Disorders: No Mother Name: Agata clements Age: 60 Family Member Ethnicity: Non- Living Status: Still Living Hx Family Cardiac Disorders: Yes (heart attack) Hx Family Respiratory Disorders: No Hx Family Cancer: No Hx Family GI Disorders: No Hx Family Genitourinary Disorders: No Hx Family Endocrine Disorder: No Hx Family Musculoskeletal Disorders: No Hx Family Neuromuscular Disorders: No Hx Family Neurologic Disorders: No Hx Family HEENT Disorders: No Hx Family Autoimmune Disorders: No Hx Family Reproductive Disorders: No Hx Family Psychosocial Disorders: No Hx Family Medical Disorders: No Medications and Allergies Citalopram Hydrobromide [Celexa] 40 mg PO DAILY 02/20/17 [History] Dabigatran [Pradaxa] 150 mg PO BID #60 capsule 02/22/17 [Rx] Tramadol HCl [Ultram] 50 mg PO BID PRN #14 tab 02/22/17 [Rx] Allergies Penicillins Allergy (Verified 02/20/17 07:33) Hives Gastrointestinal: Present: abdominal pain Musculoskeletal: Present: myalgias (right hip) Oncology - Exam - Constitutional Vitals: Temp Pulse Resp BP Pulse Ox 98.2 F 76 18 133/87 98 02/20/17 15:07 02/20/17 15:07 02/20/17 15:07 02/20/17 15:07 02/20/17 15:07 General appearance: average body habitus, no acute distress - Head Head exam: Present: atraumatic, normal inspection - Eye Eye exam: Present: normal appearance, PERRL - ENT ENT exam: Present: mucous membranes moist - Neck Neck exam: Present: full ROM, normal inspection - Respiratory Respiratory exam: Present: CTAB - Cardiovascular Cardiovascular exam: Present: RRR, +S1, +S2 - GI/Abdominal GI/Abdominal exam: Present: soft, tenderness (RLQ) - Extremities Exam Extremities exam: Present: full ROM, normal inspection - Neurological Exam Neurological exam: Present: alert, CN II-XII intact, oriented X3, no focal deficits - Psychiatric Psychiatric exam: Present: normal affect, normal mood Oncology - Results - Labs Labs: Short CBC 02/20/17 02/20/17 Range/Units 05:47 09:09 WBC 11.3 H 8.7 (4.3-11.1) K/mcL Hgb 13.7 14.0 (12.9-16.9) g/dL Hct 40.4 42.6 (37.5-50.1) % Plt Count 218 235 (140-400) K/mcL Neutrophils # 3.5 (1.6-8.9) K/mcL BMP 02/20/17 05:47 Sodium 140 Potassium 4.1 Chloride 109 Carbon Dioxide 23 BUN 12 Creatinine 0.91 Glucose 99 Calcium 9.1 Cardiac Enzymes 02/20/17 Range/Units 05:47 Troponin I 0.00 (0-0.03) ng/mL Liver Function 02/20/17 Range/Units 05:47 Total Bilirubin 0.3 (0.2-1.2) mg/dL AST 14 (5-34) Units/L ALT 10 (0-55) Units/L Alkaline Phosphatase 65 (38-126) Units/L Albumin 3.6 (3.5-5.0) g/dL Consult Discharge Plan - Plan Instructions: Tramadol (By mouth), Dabigatran (By mouth) Additional Instructions: pcp asmita will on march 04 at 2 pm ..please come around 140 if you do not have your new patient packet filled out. Referrals: Thee Mora MD [Partnered Physician] - Asmita Murrell, RN [Registered Nurse] - (please come at 140 if you do not have your new patient packet) NO,PCP [Primary Care Provider] - Prescriptions: Dabigatran [Pradaxa] 150 mg PO BID #60 capsule Tramadol HCl [Ultram] 50 mg PO BID PRN #14 tab PRN Reason: Pain <Thee Mora - Last Filed: 02/22/17 18:24> Date of Encounter: 02/22/17 - Data of Consult Requesting Physician: Chauncey Jose MD Primary Care Provider: PCP NO - Consult Narrative History of present illness: Mr. Clements is a 36 year old male Oncology - Exam - Constitutional Vitals: Temp Pulse Resp BP Pulse Ox 97.8 F 87 16 129/78 97 02/22/17 07:00 02/22/17 07:00 02/22/17 07:00 02/22/17 07:00 02/22/17 07:00 Oncology - Results - Labs Labs: Short CBC 02/22/17 Range/Units 07:18 WBC 9.8 (4.3-11.1) K/mcL Hgb 14.4 (12.9-16.9) g/dL Hct 43.1 (37.5-50.1) % Plt Count 268 (140-400) K/mcL Neutrophils # 5.1 (1.6-8.9) K/mcL BMP 02/22/17 07:18 Sodium 140 Potassium 4.5 Chloride 111 H Carbon Dioxide 19 BUN 12 Creatinine 0.88 Glucose 88 Calcium 9.4 - Attending Attestation Recurrence DVT as mentioned above. She has poor compliance with medication. We will try Pradaxa 150 mg by mouth twice a day which he has not had a past CT abdomen and pelvis showed thrombus in the left internal iliac vein. Also chronic thrombus in the IVC. Venous Doppler 02/20/2017 showed phasic flow in both veins Dr. Acuna did not recommendi IVC filter at this time
[2017-02-21] MEDS: *HR* OxyCODONE Immed Rel 5 MG TABLET PO PRN ×3 (00:07→12:48)
[2017-02-21] MEDS: *HR* Morphine 2 MG/ML SYRINGE IVP PRN ×2 (02:29→08:52)
[2017-02-21] MEDS: Heparin 25,000 UNIT/500 ML D5W 25,000 UNIT/500 ML MLS IVC SCH (05:40)
[2017-02-21] MEDS: Famotidine 20 MG/2 ML VIAL IVP SCH (05:43)
[2017-02-21 06:50] LABS: Basophils # 0.1 K/mcL (0.0-0.2); Basophils % 0.7 %; Eosinophils # 0.5 K/mcL (0.0-0.6); Eosinophils % 4.4 %; Hematocrit 42.4 % (37.5-50.1); Hemoglobin 14.2 g/dL (12.9-16.9); Immature Granulocytes % 0.2 % (0-4); Lymphocytes # 5.6 K/mcL (0.6-4.6); Lymphocytes % 48.9 %; Mean Corpuscular HGB Conc 33.5 g/dL (31.6-35.5); Mean Corpuscular Hemoglobin 30.1 pg (28.0-33.3); Mean Platelet Volume 9.1 fL (9.4-12.4); Monocytes # 0.9 K/mcL (0.0-1.3); Neutrophils # 4.3 K/mcL (1.6-8.9); Platelet Count 260 K/mcL (140-400); Red Blood Count 4.71 M/mcL (4.19-5.50); Red Cell Distribution Width 13.6 % (11.5-14.5); Segmented Neutrophils % 37.8 %
[2017-02-21 06:55] LABS: INR 1.1; Prothrombin Time 11.8 Seconds (9.4-12.1)
[2017-02-21 06:57] LABS: Activated Partial Thrombo Time 81.7 Seconds (26.0-36.0)
[2017-02-21] MEDS: Nicotine 21 MG PATCH.TD24 TD SCH (08:51)
--- NOTE | 2017-02-21 09:54 | Internal Med Progress Note ---
Addendum entered and electronically signed by Mohsen Avery DO 16:01: Spoke with Vascular surgery, they do no recommend IVC Filter placement in this patient. Plan to continue monitoring overnight and possible discharge tomorrow with Pradaxa to follow up with Hematology as outpatient. Original Note: <Mohsen Avery - Last Filed: 02/21/17 10:02> Date of Encounter: 02/19/17 Time of Encounter: 09:54 - Assessment and plan (1) Recurrent deep vein thrombosis Current Visit: Yes Status: Chronic Assessment and plan: Patient with a history of Factor V Leiden, SLE, and multiple thrombotic events including PE and DVT who is on Eliquis bid who was admitted with complaint of RLQ and RUQ abdominal pain. Patient left AMA two days ago from ED. 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 Patient reports he has failed therapy on coumadin, lovenox, and xarelto in the past. Has been taking Eliquis for the past two years. PT 11.8, INR 1.1, PTT 81.7 Hematology recommends switch to Pradaxa 150 bid and recommends IVC filter placement. Vascular surgery consulted. Discontinue heparin drip, start Pradaxa 150 bid. (2) Abdominal pain Current Visit: Yes Status: Acute Assessment and plan: Patient presents with complaint of RUQ deep achy pain. CT 02/18/17 revealed no intra abdominal processes. RUQ ultrasound 02/18/17 revealed an unremarkable RUQ with no evidence of acute cholecystitis. Abdominal pain secondary to deep vein thromboses. Continue pain management. Qualifiers: Abdominal location: right upper quadrant Qualified Code(s): R10.11 - Right upper quadrant pain (3) IVC thrombosis Current Visit: Yes Status: Acute (4) Factor V Leiden Current Visit: Yes Status: Chronic (5) Systemic lupus erythematosus Current Visit: Yes Status: Acute Assessment and plan: History of SLE, no current therapy. Qualifiers: Systemic lupus erythematosus type: unspecified Systemic lupus erythematosus organ involvement: unspecified Qualified Code(s): M32.9 - Systemic lupus erythematosus, unspecified (6) Tobacco use disorder Current Visit: Yes Status: Acute Assessment and plan: Patient continues to smoke daily. Counseled patient the importance of smoking cessation especially in the presence of his comorbidities. Nicotine patch ordered. - Subjective Interval history: Patient reports doing well overnight. Patient still complains of mild 4/10 right upper and right lower quadrant pain that is achy in nature. Patient denies fevers, chills, sweats, changes in vision or hearing, nausea, vomiting, chest pain, shortness of breath, changes in bowels or bladder, weakness, or loss of sensation. Discussed with patient the plan to start Pradaxa and consult for possible IVC filter placement. - Constitutional Vitals: Temp Pulse Resp BP Pulse Ox 98.1 F 74 20 145/99 97 02/21/17 07:31 02/21/17 07:31 02/21/17 07:31 02/21/17 07:31 02/21/17 07:31 General appearance: Present: cooperative, A&O X 3, pleasant, no acute distress, answers questions appropriately - Head Head exam: Present: atraumatic, normal inspection, normocephalic - Eye Eye exam: Present: normal appearance - ENT ENT exam: Present: mucous membranes moist, normal exam, normal external ear exam , normal oropharynx - Neck Neck exam general surgery: Present: full ROM, normal inspection, supple, trachea midline. Absent: tenderness - Respiratory Respiratory exam: Present: CTAB. Absent: rales, rhonchi, wheezes - Cardiovascular Cardiovascular exam: Present: RRR, +S1, +S2 - GI/Abdominal GI/Abdominal exam: Present: normal bowel sounds, soft, tenderness (RUQ). Absent : distended, guarding, rebound - Extremities Exam Extremities exam: Present: full ROM, normal inspection, warm. Absent: pedal edema, tenderness - Neurological Exam Neurological exam: Present: alert, normal gait, oriented X3, no focal deficits, strengths equal and symetr throughout. Absent: facial droop, speech deficit - Psychiatric Psychiatric exam: Present: normal affect, normal mood - Skin Skin exam: Present: dry, intact, normal color, warm. Absent: diaphoretic, erythema, pallor Internal Medicine: Result - Labs CBC & Chem 7: 02/21/17 06:20 02/20/17 05:47 Labs: Short CBC 02/21/17 Range/Units 06:20 WBC 11.4 H (4.3-11.1) K/mcL Hgb 14.2 (12.9-16.9) g/dL Hct 42.4 (37.5-50.1) % Plt Count 260 (140-400) K/mcL Neutrophils # 4.3 (1.6-8.9) K/mcL - ABG Interpretation ABG results: PT/INR, D-dimer PT 11.8 Seconds (9.4-12.1) 02/21/17 06:20 Consult Discharge Plan - Plan Additional Instructions: pcp asmita will on march 04 at 2 pm ..please come around 140 if you do not have your new patient packet filled out. Referrals: Asmita Murrell RN [Registered Nurse] - (please come at 140 if you do not have your new patient packet) NO,PCP [Primary Care Provider] - <Chauncey Jose - Last Filed: 02/21/17 17:42> Date of Encounter: 02/21/17 - Constitutional Vitals: Temp Pulse Resp BP Pulse Ox 98.4 F 84 18 146/104 97 02/21/17 16:22 02/21/17 16:22 02/21/17 16:22 02/21/17 16:22 02/21/17 07:31 Internal Medicine: Result - Labs CBC & Chem 7: 02/21/17 06:20 02/20/17 05:47 Labs: Short CBC 02/21/17 Range/Units 06:20 WBC 11.4 H (4.3-11.1) K/mcL Hgb 14.2 (12.9-16.9) g/dL Hct 42.4 (37.5-50.1) % Plt Count 260 (140-400) K/mcL Neutrophils # 4.3 (1.6-8.9) K/mcL - ABG Interpretation ABG results: PT/INR, D-dimer PT 11.8 Seconds (9.4-12.1) 02/21/17 06:20 - Attending Attestation I examined this patient and my medical decision-making was reviewed with the DIVER HELPER/PA/Advanced Practice Nurse/Resident Physician. I agree with the documented findings, disposition and treatment plan as described except to the extent set forth below.
[2017-02-21] MEDS: *HR* Dabigatran 150 MG CAPSULE PO SCH ×2 (12:45→20:22)
--- NOTE | 2017-02-21 17:21 | Venous Imaging Report ---
LE Venous Duplex Patient Name:Jax Rooney Order Number:[id number] Procedure Date:02/21/2017 Date:1980Age:36 yrs Gender:Male Location:[facility] Room #: [id number] Destaticizer Feeder:Adriana Ferguson RDCS, RVT Referring MD:Alexy Holguin MD, FACS upper caser:None Reading MD:Alexy Holguin MD , FACS Primary Indications:DVT Secondary Indications: Risk Factors Yes/No Hx of DVT Yes Hx of Chemotherapy No Anticoagulants Yes Impressions: Recommendations: After imaging the patient returned to their room. Test completed on 02/21/2017 at 2:41:26 pm. Findings Prior Study: No prior study available for comparison. Lower Extremity Venous Duplex Side Vein Compress Spontaneous Flow Augment Diameter (cm) Depth (cm) Left Distal Iliac Normal Yes Phasic Yes Left Common Femoral Normal Yes Phasic Yes Left Superficial Femoral Normal Yes Phasic Yes Left Popliteal Normal Yes Phasic Yes Left Posterior Tibial Normal Yes Phasic Yes Left Peroneal Normal Yes Phasic Yes Left Great Saphenous Normal Yes Phasic Yes Left Lesser Saphenous Normal Yes Phasic Yes Right Common Femoral Normal Yes Phasic Yes Updated by Alexy Holgiun MD, FACS on 02/21/2017 5:14:29 PM Alexy Holguin MD electronically signed on 02/21/2017 5:15:00 PM with status of Final
--- NOTE | 2017-02-21 17:34 | Vascular/[facility] Progress Note ---
Date of Encounter: 02/21/17 Time of Encounter: 16:00 - Assessment and plan (1) Systemic lupus erythematosus Current Visit: Yes Status: Chronic Patient has history of systemic lupus rhythmic doses. Qualifiers: Systemic lupus erythematosus type: unspecified Systemic lupus erythematosus organ involvement: unspecified Qualified Code(s): M32.9 - Systemic lupus erythematosus, unspecified (2) Factor V Leiden Current Visit: Yes Status: Chronic Patient has a history of factor V Leiden deficiency. He has had multiple episodes of thrombosis. The CT angiogram and the venous duplex scan are at odds with each other in regards to demonstration of the patency of the abdominal and pelvic venous system. On my physical evaluation he has no lower extremity edema or signs of chronic venous stasis or hyperpigmentation or stasis dermatitis. I agree with the use of lifelong anticoagulation for this patient. I emphasized to him and his family that this was critical in his long-term care. I do not believe that IVC filter placement is appropriate at this time in light of the venous duplex findings and his inconsistency and taking medication. I reviewed this again with the patient and his family. The patient was invited to return to see me on a when necessary basis. - Subjective Interval history: Jax Rooney is a 36-year-old white male who was seen today in consultation for lower extremity and suspected vena caval thrombus. The patient presented to the emergency room earlier this week with abdominal pain. He left AMA. He then returned approximately 24 hours later with the same pain and decided to be admitted. A CT angiogram was performed of the abdomen and pelvis. This demonstrated chronic thrombus in the suprarenal inferior vena cava. He was a suspected thrombosis of the inferior vena cava and in the left iliac system. The patient's dominant pain however is in the right lower quadrant. The patient has chronic abdominal pain particularly in the lower portion of the abdomen. The patient has a factor V Leiden deficiency and SLE. He has been seen by hematology in the past. He had relocated to [facility] and then return to [place] but during this time there was a lapse in medical care and anticoagulation therapy. He has received a variety of anticoagulants in the past and on his admission to the hospital at this time he was taking Eliquis. The patient also has a history of previous DVTs and pulmonary emboli. He states that following an episode of diverticulitis that required a partial colon resection and also a splenectomy that his problems began. The patient denies any other family members as having a coagulopathy. Vital Signs, Last 4 Hours Temp Pulse Resp BP 02/21/17 16:22 98.4 F 84 18 146/104 - Physical Examination General: Present: Conversant, No Apparent Distress, Well developed, Well nourished HEENT: Present: Atraumatic, Normocephaly, Trachea midline Neck: Absent: JVD, Midline deformity, Tracheal deviation Cardiac: Present: Reg Rate and Rhythm, Normal S1 and S2 Lungs: Present: Normal Breath Sounds Neuro: Present: Alert and responsive, No focal deficits noted Vascular: Present: Normal capillary refill, Pulse, normal, Color/Temperature ( Normal color and temperature of the lower extremities). Absent: Edema Abdomen: Present: Soft, Masses, Other (Mild tenderness on deep palpation in the left and right lower quadrants. The patient has a well-healed vertical midline incision. There is no incisional hernia present. There is no discoloration of the abdominal wall. There are no signs of superficial venous distention along the flank or periumbilical or abdominal wall regions. There is no venous hum over the liver.). Absent: Hepatosplenomegaly Skin: Present: No rashes noted on visualized skin. Absent: Wound/ulcer(s) Results 02/21/17 06:20 02/20/17 05:47 Lab Results, Last 24 hours 02/20/17 02/21/17 02/21/17 23:07 06:20 06:20 WBC 11.4 H Hgb 14.2 Hct 42.4 Plt Count 260 INR 1.1 APTT 82.2 H 81.7 H - Imaging / Other Tests Angiogram: report reviewed, image reviewed Non Invasive Vascular Testing: report reviewed, image reviewed CT/CTA: report reviewed, image reviewed (The CTA demonstrates a hyperdense calcific area on the left lateral aspect of the inferior vena cava proximal to the left renal vein. There is a grayish discoloration of the infrarenal inferior vena cava in regards to the contrast visualization but there is no significant contrast in the venous phase. The bilateral iliac veins appear distended but no demonstrable thrombus can be identified. Duplex imaging was performed of the inferior vena cava and the left lower extremity today. On review these images I cannot identify any acute thrombus or free-floating thrombus. The inferior vena cava and iliac veins appear patent and I cannot identify thrombus. In addition the left lower extremity deep venous system is patent and I cannot identify thrombus.) Consult Discharge Plan - Plan Additional Instructions: pcp asmita will on march 04 at 2 pm ..please come around 140 if you do not have your new patient packet filled out. Referrals: Asmita Murrell, RN [Registered Nurse] - (please come at 140 if you do not have your new patient packet) NO,PCP [Primary Care Provider] -
[2017-02-21] MEDS: Famotidine 20 MG TABLET PO SCH (20:22)
[2017-02-21] MEDS ORDERED: *HR* OxyCODONE Immed Rel 5 MG TABLET PO PRN (20:40)
[2017-02-22 07:13] VITALS: BP 129/78
[2017-02-22 07:33] LABS: Basophils # 0.1 K/mcL (0.0-0.2); Eosinophils # 0.3 K/mcL (0.0-0.6); Eosinophils % 3.5 %; Hematocrit 43.1 % (37.5-50.1); Hemoglobin 14.4 g/dL (12.9-16.9); Immature Granulocytes % 0.6 % (0-4); Lymphocytes # 3.4 K/mcL (0.6-4.6); Lymphocytes % 34.7 %; Mean Corpuscular HGB Conc 33.4 g/dL (31.6-35.5); Mean Corpuscular Hemoglobin 29.8 pg (28.0-33.3); Monocytes # 0.8 K/mcL (0.0-1.3); Monocytes % 8.4 %; Neutrophils # 5.1 K/mcL (1.6-8.9); Platelet Count 268 K/mcL (140-400); Red Blood Count 4.84 M/mcL (4.19-5.50); Red Cell Distribution Width 13.5 % (11.5-14.5); Segmented Neutrophils % 51.8 %
[2017-02-22 07:36] LABS: INR 1.1; Prothrombin Time 12.2 Seconds (9.4-12.1)
[2017-02-22 07:47] LABS: BUN/Creatinine Ratio 14 (6-26); Blood Urea Nitrogen 12 mg/dL (8-26); Calcium 9.4 mg/dL (8.6-10.8); Carbon Dioxide 19 mEq/L (19-29); Chloride 111 mEq/L (98-109); Glucose 88 mg/dL (70-99); Osmolality,Calculated 289 (280-300); Potassium 4.5 mEq/L (3.5-4.5); Sodium 140 mEq/L (136-145); eGFR For African Americans > 60 (> 60); eGFR For Non-African Americans > 60 (> 60)
[2017-02-22] MEDS: *HR* Dabigatran 150 MG CAPSULE PO SCH (09:12)
[2017-02-22] MEDS: Famotidine 20 MG TABLET PO SCH (09:12)
[2017-02-22] MEDS: Nicotine 21 MG PATCH.TD24 TD SCH (09:13)
--- NOTE | 2017-02-22 09:33 | Discharge Summary ---
<Mohsen Avery - Last Filed: 02/22/17 10:11> Date of Encounter: 02/22/17 Time of Encounter: 09:31 - Discharge Diagnosis (1) Recurrent deep vein thrombosis Priority: Primary Status: Chronic Comments: Patient with a history of Factor V Leiden, SLE, and multiple thrombotic events including PE and DVT who is on Eliquis bid who was admitted with complaint of RLQ and RUQ abdominal pain. Patient left AMA two days ago from ED. 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 Patient reports he has failed therapy on coumadin, lovenox, and xarelto in the past. Has been taking Eliquis for the past two years. PT 12.2, INR 1.1, PTT 81.7 (yesterday) Hematology recommends switch to Pradaxa 150 bid and recommends IVC filter placement. Vascular surgery consulted. Discontinue heparin drip, start Pradaxa 150 bid. (2) Abdominal pain Priority: Primary Status: Acute Comments: Patient presents with complaint of RUQ deep achy pain. CT 02/18/17 revealed no intra abdominal processes. RUQ ultrasound 02/18/17 revealed an unremarkable RUQ with no evidence of acute cholecystitis. Abdominal pain secondary to deep vein thromboses. Qualifiers: Abdominal location: right upper quadrant Qualified Code(s): R10.11 - Right upper quadrant pain (3) IVC thrombosis Priority: Primary Status: Chronic (4) Factor V Leiden Priority: Primary Status: Chronic (5) Systemic lupus erythematosus Priority: Secondary Status: Chronic Comments: History of SLE, no current therapy. Qualifiers: Systemic lupus erythematosus type: unspecified Systemic lupus erythematosus organ involvement: unspecified Qualified Code(s): M32.9 - Systemic lupus erythematosus, unspecified (6) Tobacco use disorder Priority: Secondary Status: Chronic Comments: Patient continues to smoke daily. Counseled patient the importance of smoking cessation especially in the presence of his comorbidities. Nicotine patch ordered. - Discharge Medications Prescriptions: Dabigatran [Pradaxa] 150 mg PO BID #60 capsule Tramadol HCl [Ultram] 50 mg PO BID PRN #14 tab PRN Reason: Pain Home Medications: Citalopram Hydrobromide [Celexa] 40 mg PO DAILY 02/20/17 [History] Dabigatran [Pradaxa] 150 mg PO BID #60 capsule 02/22/17 [Rx] Tramadol HCl [Ultram] 50 mg PO BID PRN #14 tab 02/22/17 [Rx] Allergies/Adverse Reactions: Allergies Penicillins Allergy (Verified 02/20/17 07:33) Hives Procedures/tests Complete & Pending: Procedures Performed prior 72 hours Category Date Time Status EV ivc image with branches Urgent Y 02/21/17 11:27 Completed EV venous imaging LE LT Routine Y 02/21/17 11:27 Completed Date of admission: 02/20/17 02:11 Primary care physician: PCP NO Consults: 02/21/17 09:50 Consult to Vascular Surgery [CONS] Routine Consulting Provider: Vascular Surgery Renetta Reason for Consult: Patient with history of factor V deficiency and multiple IVC thrombosis. Dr. Holguin Time Notified: 09:51 Call Completed: Yes Discharging clinician: Chauncey Jose (Mohsen Avery) Anticipated date of discharge: 02/22/17 - Patient Status Disposition: Home, Self-Care Condition: Good Functional capacity at discharge: independent ambulation Overall status at discharge: patient is progressing back to baseline - Discharge Instructions Instructions: Tramadol (By mouth), Dabigatran (By mouth) Follow Up With: sAmita Murrell RN [Registered Nurse] - (please come at 140 if you do not have your new patient packet) NO,PCP [Primary Care Provider] - Thee Mora MD [Partnered Physician] - Additional Instructions: pcp asmita will on march 04 at 2 pm ..please come around 140 if you do not have your new patient packet filled out. - Diet and Activity Activity: resume usual activities as tolerated Diet: advance to your usual diet Interval History: Patient reports had some significant pain overnight because his pain meds were discontinued. Patient reports pain is 7/10 right upper and right lower quadrant pain that is achy. Patient laying in bed and appears fairly comfortable. Patient denies fevers, chills, sweats, changes in vision or hearing, nausea, vomiting, chest pain, shortness of breath, changes in bowels or bladder, weakness, or loss of sensation. Discussed with patient the plan to discharge and IVC filter not recommended. Patient to follow up with Hematology within 7 days of discharge. Hospital course: Mr. Rooney is a 36 year old male with history of Factor V Leiden, SLE, and multiple thrombotic events including PE and DVT who was on Eliquis bid who was admitted with complaint of RLQ and RUQ pain. Patient left AMA from the ED. 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 Patient reports he has failed therapy on coumadin, lovenox, and xarelto in the past. Has been taking Eliquis for the past two years. RUQ ultrasound on 02/18/17 was unremarkable. Patient was started on heparin drip and pain management. Patient was evaluated by Hematology who recommended discontinuance of heparin drip and start on Pradaxa. Patient was also evaluated by vascular surgery who did not recommend IVC filter placement. Patient doing well today with complaints of continued right sided abdominal pain after discontinuance of pain medications overnight. Patient to be discharge on Pradaxa, discontinue Eliquis, and 7 days worth of pain medications prn. Patient to follow up with PCP and Hematology within the next 7 days of discharge. - Time Spent with Patient Total time spent providing and/or coordinating discharge services: Less than 30 minutes - Constitutional Vitals: Temp Pulse Resp BP Pulse Ox 97.8 F 87 16 129/78 97 02/22/17 07:00 02/22/17 07:00 02/22/17 07:00 02/22/17 07:00 02/22/17 07:00 General appearance: Present: cooperative, A&O X 3, pleasant, no acute distress, answers questions appropriately - Head Head exam: Present: atraumatic, normal inspection, normocephalic - Eye Eye exam: Present: normal appearance, sclera anicteric - ENT ENT exam: Present: mucous membranes moist, normal exam, normal external ear exam , normal oropharynx - Neck Neck exam general surgery: Present: full ROM, normal inspection, supple, trachea midline. Absent: tenderness - Respiratory Respiratory exam: Present: CTAB. Absent: rales, rhonchi, wheezes - Cardiovascular Cardiovascular exam: Present: RRR, +S1, +S2. Absent: diastolic murmur, JVD, systolic murmur - GI/Abdominal GI/Abdominal exam: Present: normal bowel sounds, soft, tenderness (RUQ, RLQ). Absent: distended, guarding, rebound, no peritoneal signs - Extremities Exam Extremities exam: Present: full ROM, normal inspection, warm, radial pulses palpable and symetrical. Absent: tenderness - Neurological Exam Neurological exam: Present: alert, normal gait, oriented X3, no focal deficits, strengths equal and symetr throughout. Absent: facial droop, speech deficit - Psychiatric Psychiatric exam: Present: normal affect, normal mood - Skin Skin exam: Present: dry, intact, normal color, warm. Absent: diaphoretic, erythema, pallor <Rebeca,Chauncey P - Last Filed: 02/22/17 18:07> Date of Encounter: 02/22/17 Procedures/tests Complete & Pending: Procedures Performed prior 72 hours Category Date Time Status EV ivc image with branches Urgent Y 02/21/17 11:27 Completed EV venous imaging LE LT Routine Y 02/21/17 11:27 Completed Date of admission: 02/20/17 02:11 Primary care physician: PCP NO Consults: 02/21/17 09:50 Consult to Vascular Surgery [CONS] Routine Consulting Provider: Vascular Surgery Renetta Reason for Consult: Patient with history of factor V deficiency and multiple IVC thrombosis. Dr. Holguin Time Notified: 09:51 Call Completed: Yes Hospital course: Mr. Rooney is a 36 year old male - Time Spent with Patient Total time spent providing and/or coordinating discharge services: - Constitutional Vitals: Temp Pulse Resp BP Pulse Ox 97.8 F 87 16 129/78 97 02/22/17 07:00 02/22/17 07:00 02/22/17 07:00 02/22/17 07:00 02/22/17 07:00 - Attending Attestation I examined this patient and my medical decision-making was reviewed with the MEASUREMENT DEPARTMENT CHIEF CLERK/PA/Advanced Practice Nurse/Resident Physician. I agree with the documented findings, disposition and treatment plan as described except to the extent set forth below.
== END 2017-02-22 11:30 | disposition home or self-care (01) | DRG 300 ==
LOC: 2NENU 21:04 → EMEROO 21:04 → 2NENU 02-20 01:02
PROVIDERS: ADMIT Internal Medicine; ATTEND Internal Medicine

== ENCOUNTER 2017-10-13 17:30 | Inpatient (IN) ==
[2017-10-13 18:37] LABS: Basophils # 0.1 K/mcL (0.0-0.2); Basophils % 0.6 %; Eosinophils # 0.3 K/mcL (0.0-0.6); Eosinophils % 2.3 %; Immature Granulocytes % 0.3 % (0-4); Lymphocytes # 4.5 K/mcL (0.6-4.6); Lymphocytes % 35.3 %; Mean Corpuscular HGB Conc 34.1 g/dL (31.6-35.5); Mean Corpuscular Hemoglobin 29.8 pg (28.0-33.3); Mean Corpuscular Volume 87.3 fL (83.0-100.0); Mean Platelet Volume 8.6 fL (9.4-12.4); Monocytes # 0.9 K/mcL (0.0-1.3); Monocytes % 7.2 %; Platelet Count 265 K/mcL (140-400); Red Blood Count 5.04 M/mcL (4.19-5.50); Segmented Neutrophils % 54.3 %
[2017-10-13 18:38] LABS: INR 1.2
[2017-10-13 18:41] LABS: Activated Partial Thrombo Time 39.8 Seconds (26.0-36.0)
[2017-10-13 18:43] LABS: Alanine Aminotransferase 18 Units/L (0-55); Albumin 3.8 g/dL (3.5-5.0); Alkaline Phosphatase 89 Units/L (38-126); Aspartate Amino Transferase 14 Units/L (5-34); BUN/Creatinine Ratio 18 (6-26); Bilirubin,Total 0.4 mg/dL (0.2-1.2); Blood Urea Nitrogen 16 mg/dL (8-26); Calcium 9.1 mg/dL (8.6-10.8); Carbon Dioxide 25 mEq/L (19-29); Chloride 106 mEq/L (98-109); Globulin 3.8 g/dL (2.4-3.5); Glucose 101 mg/dL (70-99); Osmolality,Calculated 289 (280-300); Potassium 3.9 mEq/L (3.5-4.5); Sodium 139 mEq/L (136-145); Total Protein 7.6 g/dL (6.0-8.3); eGFR For African Americans > 60 (> 60); eGFR For Non-African Americans > 60 (> 60)
[2017-10-13] MEDS ORDERED: *HR* HYDROmorphone (PF) 1 MG/ML SYRINGE IVP ONE ×2 (19:17→21:48)
[2017-10-13] MEDS ORDERED: 0.9 % Sodium Chloride 1,000 ML IVC ONE (19:17)
[2017-10-13] MEDS ORDERED: Ondansetron 4 MG/2 ML VIAL IVP ONE (19:17)
--- NOTE | 2017-10-13 19:19 | Emergency Department Note ---
Disposition Clinical Impression: Left ventricular thrombus GI bleed Qualifiers: GI bleed type/associated pathology: unspecified gastrointestinal hemorrhage type Qualified Code(s): K92.2 - Gastrointestinal hemorrhage, unspecified Disposition: Admitted As Inpatient Condition: Good Forms: ED Satisfaction Letter General Adult HPI - General Chief complaint: ED GI Bleed Stated complaint: rectal bleeding Time Seen by Provider: 10/13/17 19:09 Source: patient Limitations: no limitations Nursing Notes Reviewed: Yes Vital Signs Reviewed: Yes - History of Present Illness HPI Narrative: Past medical history of hypertension hyperlipidemia and 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 Patient presents for evaluation of rectal bleeding. Bleeding started earlier in the day and has been associated with left-sided abdominal pain. Patient has previous extensive surgery related to diverticulitis. Patient's abdominal pain is worse with movement as well as palpation and bearing down. Describes the blood in his stool as maroon colored. Patient has had associated nausea but no vomiting. Denies fever or chills. Pain Scale: 8 - Related Data Home Medications Medication Instructions Recorded Confirmed Citalopram Hydrobromide [Celexa] 40 mg PO BID 02/20/17 10/13/17 Dabigatran [Pradaxa] 150 mg PO BID 02/25/17 10/13/17 Allergies Allergy/AdvReac Type Severity Reaction Status Date / Time Penicillins Allergy Hives Verified 06/03/17 13:13 All systems ED: reviewed and negative except as stated. Constitutional: Denies: fever, chills, weakness Cardiovascular: Denies: chest pain, palpitations Respiratory: Denies: cough, dyspnea Gastrointestinal: Reports: abdominal pain, nausea, hematochezia. Denies: vomiting Musculoskeletal: Denies: back pain, neck pain Integumentary: Denies: rash, abrasion Endocrine: Denies: fatigue Past Medical History - Past Medical History Medical history: Reports: DVT, hyperlipidemia, hypertension, myocardial infarction, pulmonary embolus, other Surgical history: Reports: angioplasty/stent, splenectomy Psychiatric history: Reports: anxiety, depression - Social History Smoking Status: Current every day smoker Smokeless Tobacco Status: No Alcohol use: Reports: rarely Drug use: Reports: marijuana Physical Exam General appearance: NAD, conversant Eyes: anicteric sclerae, moist conjunctivae; PERRL HENT: Atraumatic; oropharynx clear with moist mucous membranes and no mucosal ulcerations Neck: Normal inspection; Trachea midline; FROM, supple Lungs: CTA, with normal respiratory effort and no intercostal retractions CV: RRR, no MRGs Abdomen: Tenderness to palpation of the left lower quadrant greater than the rest. Mild diffuse tenderness. Positive guarding. Positive rebound. No CVA tenderness. On rectal exam the patient has gross maroon colored blood. Extremities: No peripheral edema or extremity lymphadenopathy Skin: Normal temperature; no rash, ulcers or lesions Psych: Appropriate mood and affect Neuro: alert and oriented to person, place and time - General Limitations: no limitations General appearance: alert Course - Reevaluation(s) Reevaluation #1: Patient's pain has mildly improved. Patient has gross marroon colored stool on exam. Secondary to the patient's pain and previously complicated course with diverticulitis I believe that he has diverticulitis and will start antibiotics. Mildly elevated white count. Nonspecific CT scan. - Consultations Consultation #1: Pt accepted by the hospitalist, Dr. Louis. Vital Signs Temperature 98.4 F 10/13/17 17:52 Pulse Rate 104 10/13/17 17:52 Respiratory Rate 22 10/13/17 17:52 Blood Pressure 148/83 10/13/17 17:52 O2 Sat by Pulse Oximetry 98 10/13/17 17:52 Temperature 98.4 F 10/13/17 17:52 Pulse Rate 79 10/13/17 21:49 Respiratory Rate 18 10/13/17 21:49 Blood Pressure 148/83 10/13/17 17:52 O2 Sat by Pulse Oximetry 98 10/13/17 21:49 Oxygen Delivery Oxygen Delivery Room Air Medical Decision Making - Lab Data Result diagrams: 10/13/17 18:20 10/13/17 18:20 Lab Results 10/13/17 10/13/17 10/13/17 Range/Units 18:20 18:20 18:20 WBC 12.8 H (4.3-11.1) K/mcL RBC 5.04 (4.19-5.50) M/mcL Hgb 15.0 (12.9-16.9) g/dL Hct 44.0 (37.5-50.1) % MCV 87.3 (83.0-100.0) fL MCH 29.8 (28.0-33.3) pg MCHC 34.1 (31.6-35.5) g/dL RDW 14.0 (11.5-14.5) % Plt Count 265 (140-400) K/mcL MPV 8.6 L (9.4-12.4) fL Immature Gran % 0.3 (0-4) % Seg Neutrophils % 54.3 % Lymphocytes % 35.3 % Monocytes % 7.2 % Eosinophils % 2.3 % Basophils % 0.6 % Neutrophils # 7.0 (1.6-8.9) K/mcL Lymphocytes # 4.5 (0.6-4.6) K/mcL Monocytes # 0.9 (0.0-1.3) K/mcL Eosinophils # 0.3 (0.0-0.6) K/mcL Basophils # 0.1 (0.0-0.2) K/mcL PT 13.0 H (9.4-12.1) Seconds INR 1.2 APTT 39.8 H (26.0-36.0) Seconds Sodium 139 (136-145) mEq/L Potassium 3.9 (3.5-4.5) mEq/L Chloride 106 (98-109) mEq/L Carbon Dioxide 25 (19-29) mEq/L BUN 16 (8-26) mg/dL Creatinine 0.89 (0.72-1.25) mg/dL Est GFR ( Amer) > 60 (> 60) Est GFR (Non-Af Amer) > 60 (> 60) BUN/Creatinine Ratio 18 (6-26) Glucose 101 H (70-99) mg/dL Calculated Osmolality 289 (280-300) Lactic Acid (0.5-2.2) mmol/L Calcium 9.1 (8.6-10.8) mg/dL Total Bilirubin 0.4 (0.2-1.2) mg/dL AST 14 (5-34) Units/L ALT 18 (0-55) Units/L Alkaline Phosphatase 89 (38-126) Units/L Serum Total Protein 7.6 (6.0-8.3) g/dL Albumin 3.8 (3.5-5.0) g/dL Globulin 3.8 H (2.4-3.5) g/dL Albumin/Globulin Ratio 1.0 L (1.1-2.2) Lipase (8-78) Units/L Blood Type Antibody Screen 1110/13/17 10/13/17 Range/Units 18:20 18:20 18:20 WBC (4.3-11.1) K/mcL RBC (4.19-5.50) M/mcL Hgb (12.9-16.9) g/dL Hct (37.5-50.1) % MCV (83.0-100.0) fL MCH (28.0-33.3) pg MCHC (31.6-35.5) g/dL RDW (11.5-14.5) % Plt Count (140-400) K/mcL MPV (9.4-12.4) fL Immature Gran % (0-4) % Seg Neutrophils % % Lymphocytes % % Monocytes % % Eosinophils % % Basophils % % Neutrophils # (1.6-8.9) K/mcL Lymphocytes # (0.6-4.6) K/mcL Monocytes # (0.0-1.3) K/mcL Eosinophils # (0.0-0.6) K/mcL Basophils # (0.0-0.2) K/mcL PT (9.4-12.1) Seconds INR APTT (26.0-36.0) Seconds Sodium (136-145) mEq/L Potassium (3.5-4.5) mEq/L Chloride (98-109) mEq/L Carbon Dioxide (19-29) mEq/L BUN (8-26) mg/dL Creatinine (0.72-1.25) mg/dL Est GFR ( Amer) (> 60) Est GFR (Non-Af Amer) (> 60) BUN/Creatinine Ratio (6-26) Glucose (70-99) mg/dL Calculated Osmolality (280-300) Lactic Acid 1.4 (0.5-2.2) mmol/L Calcium (8.6-10.8) mg/dL Total Bilirubin (0.2-1.2) mg/dL AST (5-34) Units/L ALT (0-55) Units/L Alkaline Phosphatase (38-126) Units/L Serum Total Protein (6.0-8.3) g/dL Albumin (3.5-5.0) g/dL Globulin (2.4-3.5) g/dL Albumin/Globulin Ratio (1.1-2.2) Lipase 106 H (8-78) Units/L Blood Type A POSITIVE Antibody Screen NEGATIVE
--- NOTE | 2017-10-13 20:18 | Emergency Department Note ---
START Narrative - START START: I examined this patient and my medical decision-making was reviewed with the Resident Physician. I agree with the documented findings, disposition and treatment plan as described except to the extent set forth below. 37 year old male with a clotting disorder presents to the Ed with LLQ pain secodary to an extensive history with diverticulitis that has require surgical intervention in the past. Artem states that he has maroon colored stools and that he is currentl on pradaxa for HX of [place]/PE/DVTs. He will like be admitted for GI bleed ABCT and labs for evaulation
[2017-10-13] MEDS ORDERED: MetroNIDAZOLE 500 MG/100 ML 500 MG/100 ML BAG IVPB ONE (20:40)
--- NOTE | 2017-10-13 22:22 | Internal Med History&Physical ---
Addendum entered and electronically signed by Harmeet Bui DO 10/14/17 05:06: Lipase elevated from 106 to 326 with abdominal pain. Consistent with Pancreatitis. No EtOH abuse. Ordered GB Ultrasound and lipid panel. NPO, IVF, pain control Original Note: <Harmeet Bui - Last Filed: 10/13/17 23:46> Date of Encounter: 10/13/17 Time of Encounter: 22:20 Assessment and Plan (1) Diverticulitis Current visit: Yes Status: Acute WBC 12.8, afebrile Pain control NPO PPI drip Cipro and Flagyl therapy IVF Repeat labs in the am (2) GI bleed Current visit: Yes Status: Acute Holding Pradaxa. Patient did not take his second dose today. Switched to Heparin drip for now with the presence of thrombus in LV. Standard dosing in place. Serial H&H. VSS. If there are any drops in H&H, hemodynamic instability or worsening rectal bleeding, we will discontinue anti- coagulation. At this time, the benefits of anti-coagulation outweigh the risk of GI bleeding. Qualifiers: GI bleed type/associated pathology: unspecified gastrointestinal hemorrhage type Qualified Code(s): K92.2 - Gastrointestinal hemorrhage, unspecified (3) Left ventricular thrombus Current visit: Yes Status: Acute Heparin drip for now with the presence of thrombus in LV. ECHO ordered Re-evaluate in the am (4) Abdominal pain Current visit: No Status: Acute Located in LUQ and LLQ. Improved since arrival to the ED. Treating suspected diverticulitis Lipase mildly elevated at 106. Rechecking in the am. No systemic symptoms of hyperlipasemia. 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 History of stent placement. Qualifiers: Coronary Disease-Associated Artery/Lesion type: [place] artery [place] vs. transplanted heart: [place] heart Associated angina: without angina Qualified Code(s): I25.10 - Atherosclerotic heart disease of [place] coronary artery without angina pectoris (9) Anxiety and depression Current visit: No Status: Acute Continued home meds (10) Tobacco use disorder Current visit: No Status: Chronic Smokes 1 PPD for 15 years. Nicotine patch ordered. Internal Medicine - H&P: HPI Chief complaint: bloody stool Admitted From: Home Plans for Post Hospital Care: Home History of present illness: Mr. Rooney is a very pleasant 37 year old male with a past medical history of CAD, Factor V Leiden, Lupus and depression who presents to the [facility] ED with a chief complaint of dark rectal bleeding. He reports finding dark blood in his stool after dinner tonight and was alarmed at the amount so he came to the emergency room. Patient is taking Pradaxa for Factor V and has long history of thrombi found throughout his organs and periphery. He reports taking Pradaxa for roughly 2 years now after switching from Lovenox, Coumadin and Elliquis due to consistent clotting. No history of melena or hematochezia previously. Denies any chest pain, shortness of breath, lightheadedness or pain during defecation. He goes on to state that he has been fatigues over the last 3 days. Additionally, he is complaining of LUQ and LLQ pain that started 3 days ago. No history of traumatic event. The pain is achy to sharp in nature and non-radiating. In 2006, he had diverticulitis resulting in partial-colon resection with splenectomy. Patient underwent a colonoscopy 2 months ao in [place] and of note, patient states he had only a couple polyps. On arrival to the ED, vital signs are stable, H&H normal and CT abd/pelvis shows no acute findings but does suggest possible thrombus in left ventricle. No free air. WBC 12.8, afebrile. Pain medication, fluids and antibiotics for suspected diverticulitis were given. We will admit Mr. Rooney for further workup and management. Past Med Surg Social Fam HX - Past Medical History Medical history: DVT, hyperlipidemia, hypertension, myocardial infarction, pulmonary embolus, other Psychiatric history: anxiety, depression - Past Surgical History Surgical History: angioplasty/stent, splenectomy - Social History Smoking Status: Current every day smoker Smokeless Tobacco Status: No Alcohol use: rarely Drug use: marijuana - Family History Maternal Grandmother Hx Family Cardiac Disorders: No Hx Family Respiratory Disorders: No Hx Family Cancer: Yes (lymphomia) Hx Family GI Disorders: No Hx Family Endocrine Disorder: No Hx Family Neuromuscular Disorders: No Hx Family Neurologic Disorders: No Hx Family HEENT Disorders: No Hx Family Autoimmune Disorders: No Mother Family Member Ethnicity: Non- Living Status: Still Living Hx Family Cardiac Disorders: Yes (heart attack) Hx Family Respiratory Disorders: No Hx Family Cancer: No Hx Family GI Disorders: No Hx Family Endocrine Disorder: No Hx Family Neuromuscular Disorders: No Hx Family Neurologic Disorders: No Hx Family HEENT Disorders: No Hx Family Autoimmune Disorders: No Internal Medicine - H&P: Meds Citalopram Hydrobromide [Celexa] 40 mg PO BID 02/20/17 [History] Dabigatran [Pradaxa] 150 mg PO BID 02/25/17 [History] 3 Allergy/AdvReac Type Severity Reaction Status Date / Time Penicillins Allergy Hives Verified 06/03/17 13:13 All Systems PM: A 10-system review of systems was performed and is negative for pertinent findings except as documented above in the HPI. - Constitutional Constitutional: as per HPI - EENT Eyes: no loss of vision Nose, mouth and throat: no dry mouth - Cardiovascular Cardiovascular ROS IM: no chest pain, no diaphoresis, no dyspnea, no lightheadedness - Respiratory Respiratory: no dyspnea - Gastrointestinal Gastrointestinal: as per HPI - Genitourinary Genitourinary ROS male: no dysuria - Musculoskeletal Musculoskeletal ROS IM: no muscle weakness - Integumentary Integumentary IM: no unusual bruising - Neurological Neurological ROS: numbness (right foot) - Psychiatric Psychiatric: depression - Endocrine Endocrine IM: fatigue - Constitutional Vitals: Temp Pulse Resp BP Pulse Ox 98.4 F 79 18 148/83 98 10/13/17 17:52 10/13/17 21:49 10/13/17 21:49 10/13/17 17:52 10/13/17 21:49 General appearance: Present: A&O X 3, no acute distress, answers questions appropriately - Head Head exam: Present: atraumatic, normocephalic - Eye Eye exam: Present: EOMI, normal appearance, conjuntiva pink, sclera anicteric - ENT ENT exam: Present: mucous membranes moist - Neck Neck exam general surgery: Present: supple, trachea midline - Respiratory Respiratory exam: Present: CTAB - Cardiovascular Cardiovascular exam: Present: RRR, +S1, +S2 - GI/Abdominal GI/Abdominal exam: Present: normal bowel sounds, soft, tenderness (LUQ and LLQ) . Absent: distended, guarding, rebound, rigid - Extremities Exam Extremities exam: Present: full ROM, normal capillary refill. Absent: calf tenderness - Neurological Exam Neurological exam: Present: oriented X3, no focal deficits - Psychiatric Psychiatric exam: Present: depressed, normal affect. Absent: anxious - Skin Skin exam: Absent: cyanosis, petechiae, rash Internal Med - H&P Results - Labs CBC & Chem 7: 10/13/17 23:19 10/13/17 18:20 <Tory Camilo - Last Filed: 10/14/17 06:40> Date of Encounter: 10/14/17 Internal Medicine - H&P: HPI History of present illness: Mr. Rooney is a 37 year old male All Systems PM: A 10-system review of systems was performed and is negative for pertinent findings except as documented above in the HPI. - Constitutional Vitals: Temp Pulse Resp BP Pulse Ox 97.7 F 77 16 121/72 95 10/14/17 04:31 10/14/17 04:31 10/14/17 04:31 10/14/17 04:31 10/14/17 04:31 Internal Med - H&P Results - Labs CBC & Chem 7: 10/14/17 03:56 10/14/17 03:56 - Attending Attestation I have seen and examined the patient independently. I have discussed with resident physician Dr. Bui regarding the management plan. Agree with the documentation. Patient has GI bleed. He was also found LV thrombus. Pt has antiphospholipid syndrome and factor V Raad mutation, high risk of thrombosis. Start heparin drip because GI bleeding is minimal and LV thrombus is more life-threatening, risk over benefit. We will closely monitor vital and H&H. GI and the cardio consult in a.m.
[2017-10-13] MEDS ORDERED: Naloxone 0.4 MG/ML INJ IVP PRN (22:42)
[2017-10-13] MEDS ORDERED: Acetaminophen 325 MG TABLET PO PRN (22:42)
[2017-10-13] MEDS ORDERED: 0.9 % Sodium Chloride 1,000 ML IVC SCH (22:45)
[2017-10-13] MEDS ORDERED: *HR* Heparin 5,000 UNIT/ML VIAL IVP PRN ×2 (22:54)
[2017-10-13] MEDS ORDERED: *HR* Heparin 5,000 UNIT/ML VIAL IVP ONE (22:54)
[2017-10-13] MEDS ORDERED: Perflutren Lipid Microsphere 1.3 ML in 0.9 % Sodium Chloride 8.7 ML IVP ONE (23:13)
[2017-10-13] MEDS ORDERED: Perflutren Lipid Microsphere 2 ML VIAL ONE (23:17)
[2017-10-13 23:34] LABS: Hematocrit 41.2 % (37.5-50.1); Hemoglobin 13.8 g/dL (12.9-16.9); Mean Corpuscular HGB Conc 33.5 g/dL (31.6-35.5); Mean Corpuscular Hemoglobin 29.7 pg (28.0-33.3); Mean Corpuscular Volume 88.8 fL (83.0-100.0); Mean Platelet Volume 8.9 fL (9.4-12.4); Platelet Count 249 K/mcL (140-400); Red Blood Count 4.64 M/mcL (4.19-5.50); Red Cell Distribution Width 14.2 % (11.5-14.5)
[2017-10-13 23:38] LABS: INR 1.1; Prothrombin Time 12.2 Seconds (9.4-12.1)
[2017-10-13 23:40] LABS: Activated Partial Thrombo Time 38.7 Seconds (26.0-36.0)
[2017-10-14] MEDS: Heparin 25,000 UNIT/500 ML D5W 25,000 UNIT/500 ML MLS IVC SCH ×3 (00:23→22:49)
[2017-10-14] MEDS: Nicotine 21 MG PATCH.TD24 TD SCH ×2 (00:23→09:27)
[2017-10-14] MEDS: Pantoprazole 80 MG in 0.9 % Sodium Chloride 250 ML IVC SCH ×2 (00:50→11:16)
[2017-10-14] MEDS: *HR* HYDROmorphone (PF) 1 MG/ML SYRINGE IVP PRN ×4 (03:01→18:54)
[2017-10-14 04:34] LABS: Hematocrit 39.6 % (37.5-50.1); Hemoglobin 13.1 g/dL (12.9-16.9)
[2017-10-14 04:36] LABS: Basophils # 0.1 K/mcL (0.0-0.2); Basophils % 0.6 %; Eosinophils # 0.6 K/mcL (0.0-0.6); Eosinophils % 4.6 %; Hematocrit 39.5 % (37.5-50.1); Hemoglobin 13.1 g/dL (12.9-16.9); Immature Granulocytes % 0.2 % (0-4); Mean Corpuscular HGB Conc 33.2 g/dL (31.6-35.5); Mean Corpuscular Hemoglobin 29.6 pg (28.0-33.3); Mean Corpuscular Volume 89.2 fL (83.0-100.0); Monocytes # 1.1 K/mcL (0.0-1.3); Monocytes % 8.6 %; Neutrophils # 4.7 K/mcL (1.6-8.9); Platelet Count 258 K/mcL (140-400); Red Blood Count 4.43 M/mcL (4.19-5.50); Red Cell Distribution Width 14.2 % (11.5-14.5)
[2017-10-14 04:40] LABS: BUN/Creatinine Ratio 15 (6-26); Blood Urea Nitrogen 12 mg/dL (8-26); Calcium 8.4 mg/dL (8.6-10.8); Carbon Dioxide 27 mEq/L (19-29); Chloride 108 mEq/L (98-109); Glucose 97 mg/dL (70-99); Osmolality,Calculated 288 (280-300); Sodium 139 mEq/L (136-145); eGFR For African Americans > 60 (> 60); eGFR For Non-African Americans > 60 (> 60)
[2017-10-14 05:21] LABS: Chol/HDL Ratio 5.7 (0-4.9); Cholesterol 178 mg/dL (< 200); HDL Cholesterol 31 mg/dL (40-59); LDL Cholesterol,Calculated 117 mg/dL (0-99); Triglycerides 150 mg/dL (< 150)
[2017-10-14 06:49] LABS: Hematocrit 39.8 % (37.5-50.1); Hemoglobin 13.2 g/dL (12.9-16.9)
[2017-10-14 07:09] LABS: Activated Partial Thrombo Time 159.5 Seconds (26.0-36.0)
[2017-10-14 07:14] LABS: Heparin anti-factor XA UFH 0.68 IU/mL (0.30-0.70)
[2017-10-14] MEDS: MetroNIDAZOLE 500 MG/100 ML 500 MG/100 ML BAG IVPB SCH ×2 (09:23→18:53)
[2017-10-14] MEDS: 0.9 % Sodium Chloride 1,000 ML IVC SCH ×2 (11:15→22:30)
--- NOTE | 2017-10-14 11:42 | Gastroenterology Consult Note ---
Date of Encounter: 10/14/17 Time of Encounter: 11:39 - Assessment and plan (1) GI bleed Current Visit: Yes Status: Acute Assessment and plan: Patient presented with chief complaint of bright red blood per rectum States he has had 2 episodes of bright red blood per rectum that started yesterday. Has not had any additional episodes. Hemoglobin stable at 13. Currently patient is on heparin drip for anticoagulation of newly found left ventricular thrombus. Plan will be to prep patient night and undergo colonoscopy tomorrow. continue clear liquid diet til 5PM then NPO. stop heparin drip at 7AM. Qualifiers: GI bleed type/associated pathology: unspecified gastrointestinal hemorrhage type Qualified Code(s): K92.2 - Gastrointestinal hemorrhage, unspecified (2) Diverticulitis Current Visit: Yes Status: Acute Assessment and plan: Patient is being treated for diverticulitis. Currently is nothing by mouth on Cipro and flagyl Patient has a history of diverticulitis status post partial colectomy Patient has a history of diverticulitis and is status post partial colectomy in 2006. (3) Left ventricular thrombus Current Visit: Yes Status: Acute Assessment and plan: LV thrombus noted on echocardiogram. Patient on heparin drip. Plan as per primary. - Time Spent With Patient Total time spent is greater than 50% in coordination of care (as documented) at patient's floor/unit and/or counseling patient: GI History of Present Illness - Data of Consult Patient: new to practice Consult date: 10/13/17 Requesting Physician: Raul Flores MD - Consult Narrative Reason for consult: hematochezia History of present illness: Mr. Rooney is a 37 year old male with chief complaint of bright red blood per rectum. States he had 2 bowel movements yesterday with dark stools mixed with blood. States he has had this in the past and had a colonoscopy 2 months ago at [facility] where polyps were found and removed. These polyps are benign. Also states she has had left lower quadrant pain that started 6 days ago described as sharp 8 out of 10 with no exacerbating or relieving factors. Last week he had carpal days where he had episodes of multiple bouts of vomiting. Denied hematemesis. He has felt weak for the past week. Patient's hemoglobin seemed to drop from 15-13 since being admitted. He is currently being treated for diverticulitis with IV antibiotics and on CT abdomen/pelvis there was a thrombus found in the left ventricle which was confirmed by echocardiogram and patient is on heparin drip. patient denies nausea, vomiting, diarrhea. He denies having any additional blood per rectum. Past Med Surg Social Fam HX - Past Medical History Medical history: DVT, hyperlipidemia, hypertension, myocardial infarction, pulmonary embolus, other Psychiatric history: anxiety, depression - Past Surgical History Surgical History: angioplasty/stent, splenectomy - Social History Smoking Status: Current every day smoker Packs per day: 1 Smokeless Tobacco Status: No Alcohol use: rarely Drug use: marijuana - Family History Maternal Grandmother Hx Family Cardiac Disorders: No Hx Family Respiratory Disorders: No Hx Family Cancer: Yes (lymphomia) Hx Family GI Disorders: No Hx Family Endocrine Disorder: No Hx Family Neuromuscular Disorders: No Hx Family Neurologic Disorders: No Hx Family HEENT Disorders: No Hx Family Autoimmune Disorders: No Mother Family Member Ethnicity: Non- Living Status: Still Living Hx Family Cardiac Disorders: Yes (heart attack) Hx Family Respiratory Disorders: No Hx Family Cancer: No Hx Family GI Disorders: No Hx Family Endocrine Disorder: No Hx Family Neuromuscular Disorders: No Hx Family Neurologic Disorders: No Hx Family HEENT Disorders: No Hx Family Autoimmune Disorders: No Review of Systems: Constitutional: Denies fever, chills HEENT: Denies headache, vision changes, neck pain, sore throat, rhinorrhea Heart: Denies chest pain palpitations Lungs: Denies shortness of breath cough Abdomen: Reports abdominal pain, nausea, vomiting, red blood per rectum. Back: Denies back pain Kidney: Denies dysuria, hematuria Skin: warm and dry Extremities: Denies swelling, pain Neuro: Denies numbness, and tingling - Constitutional Vitals: Temp Pulse Resp BP Pulse Ox 97.7 F 77 16 121/72 95 10/14/17 04:31 10/14/17 04:31 10/14/17 04:31 10/14/17 04:31 10/14/17 04:31 - Other Additional findings: General: without distress HEENT: Head atraumatic, normocephalic, EOMI, PERRL, neck nontender to palpation, Moist Mucous Membranes, Heart: Regular rate and rhythm with no murmur Lungs: Clear to auscultation bilaterally Abdomen: Soft nontender, nondistended positive bowel sounds Skin: warm and dry Extremities: Absent pedal edema, Neuro: Alert and oriented 3 Vascular: Pedal and radial pulses 2 out of 4 Results - Labs CBC & Chem 7: 10/14/17 06:39 10/14/17 03:56 Labs: Last Result Calcium 8.4 mg/dL (8.6-10.8) L 10/14/17 03:56 Triglycerides 150 mg/dL (< 150) H 10/14/17 03:56 Entire Visit Hgb 13.2 g/dL (12.9-16.9) 10/14/17 06:39 Hct 39.8 % (37.5-50.1) 10/14/17 06:39 PT 12.2 Seconds (9.4-12.1) H 10/13/17 23:19 Total Bilirubin 0.4 mg/dL (0.2-1.2) 10/13/17 18:20 AST 14 Units/L (5-34) 10/13/17 18:20 ALT 18 Units/L (0-55) 10/13/17 18:20 Lipase 326 Units/L (8-78) H 10/14/17 03:56 - ABG ABG results: PT/INR, D-dimer PT 12.2 Seconds (9.4-12.1) H 10/13/17 23:19 - Impressions Impressions Retroperitoneum Ultrasound 10/14/17 08:00 IMPRESSION: Probable simple cyst right kidney. Left kidney demonstrates a slightly complex cyst with thin septation. 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 D/ / 10/14/2017 09:11:56 Eamon Anderson MD / Payton Gongora Interpreting Provider: Eamon Anderson MD Gallbladder Ultrasound 10/14/17 08:30 IMPRESSION: Suboptimal evaluation of the pancreas and right kidney related to overlying bowel gas. Cavernous transformation of the portal vein. D/ / 10/14/2017 09:08:33 Glen Guy MD / antwan Interpreting Provider: Glen Guy MD Consult Discharge Plan - Plan Referrals: NONE,PCP [Primary Care Provider] -
[2017-10-14] MEDS ORDERED: SODIUM CHLORIDE/NAHCO3/KCL/PEG 4,000 ML SOLN.RECON PO ONE (13:29)
--- NOTE | 2017-10-14 16:46 | Cardiology Consult Note ---
<Eamon Gonzales - Last Filed: 10/14/17 17:21> Date of Encounter: 10/14/17 Time of Encounter: 11:00 Assessment and Plan (1) Left ventricular thrombus Current Visit: Yes Status: Acute - Likely chronic thrombus. Hx [place] 2007, stent placed [facility]. - Echocardiogram also demonstrates apical hypokinesis, possible aneurysmal wall , unknown age, though considered non-emergent, chronic. - ECG poor R wave progression V1-V4; T-wave inversion V4; evidence of old NE. - Negative troponin. - Continue heparin inpatient. - Continue Pradaxa 150mg PO BID outpatient. - Pt to undergo stress test after colonoscopy, or AM. (2) Systolic dysfunction Current Visit: Yes Status: Acute Details of echo as above. No recent evaluation of ischemia, plan for stress test late tomorrow after colonoscopy or early AM. 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 - Continue Pradaxa; history Lovenox, Coumadin, Eliquis prior to Pradaxa (clot incidence lowest on Pradaxa for Mr. Rooney). - Factor V Leiden likely not major contributor to thrombus, thrombus likely chronic, due to past NE. While there is no recent echocardiogram to compare, thrombus formation secondary to NE with persistent thrombus with limited endothelialization is likely in this patient. Management remains the same, continue Pradaxa 150mg BID. Discussion w patient/family: The assessment and plan as outlined above was discussed with the patient and/or family members who expressed understanding and agreement. All questions were answered. Thank you for involving us in the care of your patient. Please call with any questions. History of Present Illness Consult date: 10/14/17 Requesting physician: Tory Camilo Consult reason: Left Ventricular Thrombus Chief complaint: Rectal Bleeding History of present illness: Mr. Rooney, 37 male, relatively accurate historian, [facility] CAD, [place] 2007 with stenting (patient does not recall which artery, stent card thrown out), factor v leiden on pradaxa (previously trials of lovenox, coumadin, eliquis, with recurrent clots), HTN, current 1 ppd x 15 years smoker, presented yesterday for rectal bleed. Onset yesterday after eating dinner, has had blood per rectum in the past with colonoscopy 2 months ago with polyp removal, no hx blood per oral. CT abdomen pelvis read as incidental left ventricular thrombus in apex. Confirmed via echocardiogram with LVEF 40-45%, hypokinetic apical wall motion, aneurysmal apical and inferior wall. Reports chest pain with L arm tingling a week and a half ago, that has not returned since, no exertional fatigue, though pt states he is not very active. Has not had a recent stress test. Past Med Surg Social Fam HX - Past Medical History Medical history: DVT, hyperlipidemia, hypertension, myocardial infarction, pulmonary embolus, other Psychiatric history: anxiety, depression - Past Surgical History Surgical History: angioplasty/stent, splenectomy - Social History Smoking Status: Current every day smoker Packs per day: 1 Smokeless Tobacco Status: No Alcohol use: rarely Drug use: marijuana - Family History Maternal Grandmother Hx Family Cardiac Disorders: No Hx Family Respiratory Disorders: No Hx Family Cancer: Yes (lymphomia) Hx Family GI Disorders: No Hx Family Endocrine Disorder: No Hx Family Neuromuscular Disorders: No Hx Family Neurologic Disorders: No Hx Family HEENT Disorders: No Hx Family Autoimmune Disorders: No Mother Family Member Ethnicity: Non- Living Status: Still Living Hx Family Cardiac Disorders: Yes (heart attack) Hx Family Respiratory Disorders: No Hx Family Cancer: No Hx Family GI Disorders: No Hx Family Endocrine Disorder: No Hx Family Neuromuscular Disorders: No Hx Family Neurologic Disorders: No Hx Family HEENT Disorders: No Hx Family Autoimmune Disorders: No Medications and Allergies Citalopram Hydrobromide [Celexa] 40 mg PO BID 02/20/17 [History] Dabigatran [Pradaxa] 150 mg PO BID 02/25/17 [History] 3 Allergy/AdvReac Type Severity Reaction Status Date / Time Penicillins Allergy Hives Verified 06/03/17 13:13 All Systems Review: A 10-system review of systems was performed and is negative for pertinent findings except as documented above in the HPI. - Constitutional Constitutional: no fatigue, no headache(s) - Cardiovascular Cardiovascular: other (mild chest pain, intermittent tingling 10 days ago) - Respiratory Respiratory: no dyspnea - Gastrointestinal Gastrointestinal: abdominal pain, melena Physical Examination Vital Signs, Last 4 Hours Temp Pulse Resp BP Pulse Ox 10/14/17 13:03 98.8 F 70 16 129/86 97 General: Conversant HEENT: Atraumatic Neck: No JVD Cardiac: Other (RRR, S1, S2, no systolic murmur) Lungs: Normal Breath Sounds Abdomen: Other (tender LLQ) Extremities: No Clubbing, No Cyanosis, No Edema Results 10/14/17 06:39 10/14/17 03:56 Lab Results 10/14/17 10/14/17 10/14/17 06:39 06:39 11: Hgb 13.2 Hct 39.8 APTT 159.5 H* D Troponin I 0.01 10/14/17 15:43 Hgb Hct APTT 53.8 H D Troponin I Consult Discharge Plan - Plan Referrals: NONE,PCP [Primary Care Provider] - <Bulmaro Reagan - Last Filed: 10/14/17 23:07> Date of Encounter: 10/14/17 - Attending Attestation I examined this patient and my medical decision-making was reviewed with the Resident Physician. I agree with the documented findings, disposition and treatment plan as described except to the extent set forth below. IMP/plan 1. LV thombus: pt has known hx LV thrombus, redemonstrated on todays echocardiogram, documented first in 2007 following STEMI with emergent PCI of unknown vessel, was placed on warfarin at that time, has since been through [employer], and Eliquis with recurrent thromboembolic events, now on Pradaxa. Pt will need lifelong systemic anticoagulation due to Factor 5 Liden deficiency, and although off label use, dabigatran has clinically proven best efficacy in this pt. 2. Chest pain: new onset mid sternal chest pain over last week consistent with previous anginal symptoms, will order lexiscan cardiolyte stress imaging to be undertaken after endoscopies/eval for GI bleed completed. 3. Rectal bleeding, appreciate GI consult, evaluation in progress 4. CAD: severe single vessel CAD, post PCI unknown vessel 2007 at [facility], old records requested. 5. Tobacco abuse against medical advice, discussed smoking cessation, pt declines pharmacologic support for smoking cessation, does not feel he can quit. Assessment and Plan Discussion w patient/family: The assessment and plan as outlined above was discussed with the patient and/or family members who expressed understanding and agreement. All questions were answered. Thank you for involving us in the care of your patient. Please call with any questions. History of Present Illness History of present illness: Mr. Rooney is a 37 year old male All Systems Review: A 10-system review of systems was performed and is negative for pertinent findings except as documented above in the HPI. Results 10/14/17 06:39 10/14/17 03:56 Lab Results 10/14/17 10/14/17 10/14/17 06:39 06:39 11: Hgb 13.2 Hct 39.8 APTT 159.5 H* D Troponin I 0.01 10/14/17 15:43 Hgb Hct APTT 53.8 H D Troponin I
--- NOTE | 2017-10-14 19:00 | Internal Med Progress Note ---
Date of Encounter: 10/14/17 Time of Encounter: 18:56 - Assessment and plan (1) Diverticulitis Current Visit: Yes Status: Acute (2) Pancreatitis Current Visit: Yes Status: Acute Qualifiers: Chronicity: acute Pancreatitis type: unspecified pancreatitis type Acute pancreatitis complication: unspecified Qualified Code(s): K85.90 - Acute pancreatitis without necrosis or infection, unspecified (3) GI bleed Current Visit: Yes Status: Acute Qualifiers: GI bleed type/associated pathology: unspecified gastrointestinal hemorrhage type Qualified Code(s): K92.2 - Gastrointestinal hemorrhage, unspecified (4) Ventricular mural thrombus Current Visit: Yes Status: Acute (5) Pulmonary embolism Current Visit: No Status: Acute Qualifiers: Pulmonary embolism type: other Chronicity: chronic Acute cor pulmonale presence: without acute cor pulmonale Qualified Code(s): I27.82 - Chronic pulmonary embolism (6) Factor V 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 However hemoglobin remained stable. GI plans to do colonoscopy. Diagnosed with acute diverticulitis and started on IV Cipro and Flagyl. 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 Paradaxa put on hold and IV heparin was started. 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 Cardiology recommends to continue Paradaxa. Lipase noted elevated. Repeat CBC CMP amylase lipase. Abdomen is slightly tender. Patient recommended to remain nothing by mouth but there is some concern if he is sneaking food. - Constitutional Vitals: Temp Pulse Resp BP Pulse Ox 98.8 F 82 2 137/91 99 10/14/17 18:45 10/14/17 18:45 10/14/17 18:45 10/14/17 18:45 10/14/17 18:45 General appearance: Present: A&O X 3, no acute distress, answers questions appropriately - Head Head exam: Present: atraumatic, normocephalic - Eye Eye exam: Present: PERRL, conjuntiva pink, sclera anicteric Pupils: Present: PERRL - Neck Neck exam general surgery: Present: supple, trachea midline. Absent: lymphadenopathy - Respiratory Respiratory exam: Present: CTAB. Absent: accessory muscle use, rales, rhonchi, wheezes - Cardiovascular Cardiovascular exam: Present: RRR, +S1, +S2. Absent: diastolic murmur, gallop, rubs, systolic murmur - GI/Abdominal GI/Abdominal exam: Present: diminished bowel sounds, hypoactive bowel sounds, soft, tenderness, no peritoneal signs. Absent: distended - Extremities Exam Extremities exam: Present: warm, radial pulses palpable and symmetrical. Absent : calf tenderness, cyanotic, pedal edema - Neurological Exam Neurological exam: Present: CN II-XII intact, oriented X3, no focal deficits. Absent: pronater drift, facial droop, speech deficit - Skin Skin exam: Present: dry, intact Internal Medicine: Result - Labs CBC & Chem 7: 10/14/17 06:39 10/14/17 03:56 Labs: Short CBC 10/14/17 Range/Units 06:39 Hgb 13.2 (12.9-16.9) g/dL Hct 39.8 (37.5-50.1) % Cardiac Enzymes 10/14/17 Range/Units 11: Troponin I 0.01 (0-0.03) ng/mL - ABG Interpretation ABG results: PT/INR, D-dimer PT 12.2 Seconds (9.4-12.1) H 10/13/17 23:19 - Impressions Impressions Retroperitoneum Ultrasound 10/14/17 08:00 IMPRESSION: Probable simple cyst right kidney. Left kidney demonstrates a slightly complex cyst with thin septation. 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 D/ / 10/14/2017 09:11:56 Eamon Anderson MD / Payton Gongora Interpreting Provider: Eamon Anderson MD Gallbladder Ultrasound 10/14/17 08:30 IMPRESSION: Suboptimal evaluation of the pancreas and right kidney related to overlying bowel gas. Cavernous transformation of the portal vein. D/ / 10/14/2017 09:08:33 Glen Guy MD / antwan Interpreting Provider: Glen Guy MD Consult Discharge Plan - Plan Referrals: NONE,PCP [Primary Care Provider] -
[2017-10-14] MEDS: *HR* Morphine 2 MG/ML SYRINGE IVP PRN (22:32)
[2017-10-15] MEDS: *HR* HYDROmorphone (PF) 1 MG/ML SYRINGE IVP PRN ×4 (01:33→17:48)
[2017-10-15] MEDS: Pantoprazole 80 MG in 0.9 % Sodium Chloride 250 ML IVC SCH ×3 (03:48→23:16)
[2017-10-15 04:35] LABS: Basophils # 0.1 K/mcL (0.0-0.2); Basophils % 0.7 %; Eosinophils # 0.5 K/mcL (0.0-0.6); Eosinophils % 4.1 %; Hematocrit 36.6 % (37.5-50.1); Hemoglobin 12.1 g/dL (12.9-16.9); Immature Granulocytes % 0.3 % (0-4); Lymphocytes # 5.7 K/mcL (0.6-4.6); Lymphocytes % 50.8 %; Mean Corpuscular HGB Conc 33.1 g/dL (31.6-35.5); Mean Corpuscular Hemoglobin 29.7 pg (28.0-33.3); Mean Corpuscular Volume 89.9 fL (83.0-100.0); Mean Platelet Volume 9.1 fL (9.4-12.4); Monocytes % 8.4 %; Nucleated Red Blood Cells 0.2 /100 WBC (0); Platelet Count 254 K/mcL (140-400); Red Blood Count 4.07 M/mcL (4.19-5.50); Red Cell Distribution Width 14.4 % (11.5-14.5); Segmented Neutrophils % 35.7 %
[2017-10-15 04:51] LABS: Alanine Aminotransferase 14 Units/L (0-55); Alkaline Phosphatase 57 Units/L (38-126); Amylase 77 Units/L (25-125); Aspartate Amino Transferase 17 Units/L (5-34); BUN/Creatinine Ratio 11 (6-26); Bilirubin,Total 0.4 mg/dL (0.2-1.2); Blood Urea Nitrogen 9 mg/dL (8-26); Calcium 8.2 mg/dL (8.6-10.8); Carbon Dioxide 24 mEq/L (19-29); Chloride 110 mEq/L (98-109); Glucose 93 mg/dL (70-99); Lipase 60 Units/L (8-78); Osmolality,Calculated 286 (280-300); Potassium 3.9 mEq/L (3.5-4.5); Sodium 139 mEq/L (136-145); eGFR For African Americans > 60 (> 60); eGFR For Non-African Americans > 60 (> 60)
[2017-10-15 04:52] LABS: Activated Partial Thrombo Time 124.3 Seconds (26.0-36.0)
[2017-10-15 04:56] LABS: Heparin anti-factor XA UFH 0.55 IU/mL (0.30-0.70); Total Protein 5.9 g/dL (6.0-8.3)
[2017-10-15 04:57] LABS: Albumin 2.9 g/dL (3.5-5.0)
[2017-10-15] MEDS: MetroNIDAZOLE 500 MG/100 ML 500 MG/100 ML BAG IVPB SCH ×3 (07:59→17:49)
[2017-10-15] MEDS: Nicotine 21 MG PATCH.TD24 TD SCH (09:37)
[2017-10-15] MEDS: *HR* Morphine 2 MG/ML SYRINGE IVP PRN ×2 (09:58→21:37)
[2017-10-15] MEDS: 0.9 % Sodium Chloride 1,000 ML IVC SCH ×3 (11:39→23:02)
--- NOTE | 2017-10-15 14:24 | Anesthesia Evaluation PreOp ---
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) Other Medical History: Other (Systemic Lupus) Anesthesia History: No Prior Anesthetic Complications, Past Anesthesia ( Splenectomy) Alcohol Use: rarely Drug use: marijuana Medications and Allergies Citalopram Hydrobromide [Celexa] 40 mg PO BID 02/20/17 [History] Dabigatran [Pradaxa] 150 mg PO BID 02/25/17 [History] 3 Allergy/AdvReac Type Severity Reaction Status Date / Time Penicillins Allergy Hives Verified 06/03/17 13:13 - Meds/Allergy Pre-op Review Medications Reviewed: Yes Allergies Reviewed: Yes Beta Blockers on Current Med List: No Anesthesia Results - Labs 10/15/17 03:53 10/15/17 03:53 Echo 10/13/17 EF-40-45% LV thrombus No valvular dx no pHTN Cariology Impression:Echocardiogram also demonstrates apical hypokinesis, possible aneurysmal wall, unknown age, though considered non-emergent, chronic - Imaging EKG: image reviewed (SR) Anesthesia Exam O2 Sat Weight 94.6 kg O2 Sat by Pulse Oximetry 97 O2 Sat by Pulse Oximetry 96 O2 Sat by Pulse Oximetry 98 O2 Sat by Pulse Oximetry 98 O2 Sat by Pulse Oximetry 99 Vital Signs Temp Pulse Resp BP Pulse Ox 98.4 F 104 22 148/83 98 10/13/17 17:52 10/13/17 17:52 10/13/17 17:52 10/13/17 17:52 10/13/17 17:52 Vital Signs/O2 Sat, Most Current Temp Pulse Resp BP Pulse Ox 97.7 F 57 16 107/64 97 10/15/17 12:09 10/15/17 12:09 10/15/17 12:09 10/15/17 12:09 10/15/17 12:09 Height: 5'9'' Weight: 208# NPO (# of Hours): > 8 hrs Pain Scale: 0 Pain Scale Used: Numeric (1 - 10) - HEENT Pupil (Motor): EOMI Mallampati: II Teeth: Edentulous Oral Opening: Greater than 3 - JORDAN WORKER LOC: Oriented JORDAN WORKER Motor: Normal RUE, Normal LUE, Normal RLE, Normal LLE, Normal Face JORDAN WORKER Sensory: Normal: RUE, LUE, RLE, LLE, Face - Cardiac Rhythm: Regular Murmur: None JVD: No Carotid Bruit: No - Pulmonary Breath Sounds: bilateral Clear Respiratory Effort: Symmetrical Anesthesia Assess/Plan ASA Score: 3 Modified Olu Scale for Level of Consciousness: Cooperative, oriented, and tranquil Anesthetic Plan: MAC Autologous Blood: Yes Monitoring Plan: Standard Monitors Recovery Plan: PACU
[2017-10-15] MEDS ORDERED: 0.9 % Sodium Chloride 1,000 ML IVC SCH (14:30)
--- NOTE | 2017-10-15 14:56 | Cardiology Progress Note ---
<Eamon Gonzales - Last Filed: 10/15/17 15:02> Date of Encounter: 10/15/17 Time of Encounter: 11:00 Assessment and Plan (1) Left ventricular thrombus Current Visit: Yes Status: Acute - Likely chronic thrombus. Hx [place] 2007, stent placed [facility]. - Echocardiogram also demonstrates apical hypokinesis, possible aneurysmal wall , unknown age, though considered non-emergent, chronic. - ECG poor R wave progression V1-V4; T-wave inversion V4; evidence of old [place]. - Negative troponin. - Continue heparin inpatient. - Continue Pradaxa 150mg PO BID outpatient. P: Pending - Pt to undergo stress test after colonoscopy, or AM. P: Prep for lexiscan cardiolite - Discontinue nicotine patch 24 hours prior to test. (2) Systolic dysfunction Current Visit: Yes Status: Acute Details of echo as above. No recent evaluation of ischemia, plan for stress test late tomorrow after colonoscopy or early AM, as above. 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 - Continue Pradaxa; history Lovenox, Coumadin, Eliquis prior to Pradaxa (clot incidence lowest on Pradaxa for Mr. Rooney). - Factor V Leiden likely not major contributor to thrombus, thrombus likely chronic, due to past [place]. While there is no recent echocardiogram to compare, thrombus formation secondary to [place] with persistent thrombus with limited endothelialization is likely in this patient. Management remains the same, continue Pradaxa 150mg BID. -Discussed with family plan and they understand/agree. Discussion w patient/family: The assessment and plan as outlined above was discussed with the patient and/or family members who expressed understanding and agreement. All questions were answered. Thank you for involving us in the care of your patient. Please call with any questions. Subjective Principal diagnosis: GI Bleed, incidental chronic LV mural thrombus Interval history: Mr. Rooney is lying on his left side with no complaints. Nicotine patch d/c'd for prep for cardiolite test. Discussed senior care systemic anticoagulation for chronic thrombus, its likely etiology secondary to [place] 2007. Pt denies new chest pain, difficulty in breathing, no questions at this time. Objective Vital Signs, Last 4 Hours Temp Pulse Resp BP Pulse Ox 10/15/17 14:29 97.7 F 77 16 130/96 100 10/15/17 12:09 97.7 F 57 16 107/64 97 General: Other (lying on side) HEENT: Atraumatic Neck: Other (No bruit on carotid ausc, no JVD) Lungs: Other (lungs clear to ausc bilaterally) Neuro: Other (no focal deficits, no slurred speech) Abdomen: Other (no bright red blood per rectum endorsed by patient) Skin: Other (no petechiae, no ecchymosis) Extremities: Other (warm extremities, quick capillary refill) Results 10/15/17 03:53 10/15/17 03:53 Lab Results 10/14/17 10/15/17 10/15/17 15:43 03:53 03:53 WBC 11.3 H Hgb 12.1 L Hct 36.6 L Plt Count 254 APTT 53.8 H D Sodium 139 Potassium 3.9 Chloride 110 H Carbon Dioxide 24 BUN 9 Creatinine 0.79 Glucose 93 Calcium 8.2 L Total Bilirubin 0.4 AST 17 ALT 14 Alkaline Phosphatase 57 Amylase 77 Lipase 60 10/15/17 10/15/17 03:53 10:38 WBC Hgb Hct Plt Count APTT 124.3 H* D 31.7 D Sodium Potassium Chloride Carbon Dioxide BUN Creatinine Glucose Calcium Total Bilirubin AST ALT Alkaline Phosphatase Amylase Lipase Consult Discharge Plan - Plan Referrals: NONE,PCP [Primary Care Provider] - <Bulmaro Reagan - Last Filed: 10/15/17 15:58> Date of Encounter: 10/15/17 Assessment and Plan (1) Left ventricular thrombus Current Visit: Yes Status: Acute - Likely chronic thrombus. Hx [place] 2007, stent placed [facility]. - Echocardiogram also demonstrates apical hypokinesis, possible aneurysmal wall , unknown age, though considered non-emergent, chronic. - ECG poor R wave progression V1-V4; T-wave inversion V4; evidence of old [place]. - Negative troponin. - Continue heparin inpatient. - Continue Pradaxa 150mg PO BID outpatient. P: Pending - Pt to undergo stress test after colonoscopy, or AM. P: Prep for lexiscan cardiolite - Discontinue nicotine patch 24 hours prior to test. I examined this patient and my medical decision-making was reviewed with the Resident Physician. I agree with the documented findings, disposition and treatment plan as described except to the extent set forth below. 1. LV thrombus, currently off systemic anticoag, due to GI bleed, coumadin held but INR still climbing, up to 4. today, cancel stress, proceed with endoscopy per GI, will schedule stress imaging when GI eval complete. Discussion w patient/family: The assessment and plan as outlined above was discussed with the patient and/or family members who expressed understanding and agreement. All questions were answered. Thank you for involving us in the care of your patient. Please call with any questions. Objective Vital Signs, Last 4 Hours Temp Pulse Resp BP Pulse Ox 10/15/17 14:29 97.7 F 77 16 130/96 100 10/15/17 12:09 97.7 F 57 16 107/64 97 Results 10/15/17 03:53 10/15/17 03:53 Lab Results 10/14/17 10/15/17 10/15/17 15:43 03:53 03:53 WBC 11.3 H Hgb 12.1 L Hct 36.6 L Plt Count 254 APTT 53.8 H D Sodium 139 Potassium 3.9 Chloride 110 H Carbon Dioxide 24 BUN 9 Creatinine 0.79 Glucose 93 Calcium 8.2 L Total Bilirubin 0.4 AST 17 ALT 14 Alkaline Phosphatase 57 Amylase 77 Lipase 60 10/15/17 10/15/17 03:53 10:38 WBC Hgb Hct Plt Count APTT 124.3 H* D 31.7 D Sodium Potassium Chloride Carbon Dioxide BUN Creatinine Glucose Calcium Total Bilirubin AST ALT Alkaline Phosphatase Amylase Lipase
[2017-10-15] MEDS ORDERED: Propofol 500 MG/50 ML INFUS..BTL ONE (15:03)
--- NOTE | 2017-10-15 15:29 | Internal Med Progress Note ---
Date of Encounter: 10/15/17 Time of Encounter: 15:28 - Assessment and plan (1) Diverticulitis Current Visit: Yes Status: Acute (2) Pancreatitis Current Visit: Yes Status: Acute Qualifiers: Chronicity: acute Pancreatitis type: unspecified pancreatitis type Acute pancreatitis complication: unspecified Qualified Code(s): K85.90 - Acute pancreatitis without necrosis or infection, unspecified (3) GI bleed Current Visit: Yes Status: Acute Qualifiers: GI bleed type/associated pathology: unspecified gastrointestinal hemorrhage type Qualified Code(s): K92.2 - Gastrointestinal hemorrhage, unspecified (4) Ventricular mural thrombus Current Visit: Yes Status: Acute (5) Pulmonary embolism Current Visit: No Status: Acute Qualifiers: Pulmonary embolism type: other Chronicity: chronic Acute cor pulmonale presence: without acute cor pulmonale Qualified Code(s): I27.82 - Chronic pulmonary embolism (6) Factor V 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 However hemoglobin remained stable. GI plans to do colonoscopy. Diagnosed with acute diverticulitis and started on IV Cipro and Flagyl. 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 Paradaxa put on hold and IV heparin was started. 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 Cardiology recommends to continue Paradaxa. Lipase noted elevated. Repeat CBC CMP amylase lipase. Abdomen is slightly tender. Patient recommended to remain nothing by mouth but there is some concern if he is sneaking food. 10/15 hemoglobin is stable. Patient is planned to get EGD colonoscopy. Abdomen is improving continue IV Cipro and Flagyl. Cardiology has recommended to continue Pradaxa for left ventricular thrombus. - Constitutional Vitals: Temp Pulse Resp BP Pulse Ox 97.7 F 77 16 130/96 100 10/15/17 14:29 10/15/17 14:29 10/15/17 14:29 10/15/17 14:29 10/15/17 14:29 General appearance: Present: A&O X 3, no acute distress, answers questions appropriately - Head Head exam: Present: atraumatic, normocephalic - Eye Eye exam: Present: PERRL, conjuntiva pink, sclera anicteric Pupils: Present: PERRL - Neck Neck exam general surgery: Present: supple, trachea midline. Absent: lymphadenopathy - Respiratory Respiratory exam: Present: CTAB. Absent: accessory muscle use, rales, rhonchi, wheezes - Cardiovascular Cardiovascular exam: Present: RRR, +S1, +S2. Absent: diastolic murmur, gallop, rubs, systolic murmur - GI/Abdominal GI/Abdominal exam: Present: normal bowel sounds, soft, tenderness, no peritoneal signs. Absent: distended - Extremities Exam Extremities exam: Present: warm, radial pulses palpable and symmetrical. Absent : calf tenderness, cyanotic, pedal edema - Neurological Exam Neurological exam: Present: CN II-XII intact, oriented X3, no focal deficits. Absent: pronater drift, facial droop, speech deficit - Skin Skin exam: Present: dry, intact Internal Medicine: Result - Labs CBC & Chem 7: 10/15/17 03:53 10/15/17 03:53 Labs: Short CBC 10/15/17 Range/Units 03:53 WBC 11.3 H (4.3-11.1) K/mcL Hgb 12.1 L (12.9-16.9) g/dL Hct 36.6 L (37.5-50.1) % Plt Count 254 (140-400) K/mcL Neutrophils # 4.0 (1.6-8.9) K/mcL BMP 10/15/17 03:53 Sodium 139 Potassium 3.9 Chloride 110 H Carbon Dioxide 24 BUN 9 Creatinine 0.79 Glucose 93 Calcium 8.2 L Liver Function 10/15/17 Range/Units 03:53 Total Bilirubin 0.4 (0.2-1.2) mg/dL AST 17 (5-34) Units/L ALT 14 (0-55) Units/L Alkaline Phosphatase 57 (38-126) Units/L Albumin 2.9 L D (3.5-5.0) g/dL - ABG Interpretation ABG results: PT/INR, D-dimer PT 12.2 Seconds (9.4-12.1) H 10/13/17 23:19 - Impressions Impressions Retroperitoneum Ultrasound 10/14/17 08:00 IMPRESSION: Probable simple cyst right kidney. Left kidney demonstrates a slightly complex cyst with thin septation. 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 D/ / 10/14/2017 09:11:56 Eamon Anderson MD / Payton Gongora Interpreting Provider: Eamon Anderson MD Consult Discharge Plan - Plan Referrals: NONE,PCP [Primary Care Provider] -
--- NOTE | 2017-10-15 20:02 | Electrocardiograph Report ---
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
[2017-10-16] MEDS: MetroNIDAZOLE 500 MG/100 ML 500 MG/100 ML BAG IVPB SCH ×3 (00:26→16:08)
[2017-10-16] MEDS: *HR* HYDROmorphone (PF) 1 MG/ML SYRINGE IVP PRN ×4 (00:30→17:32)
[2017-10-16 04:47] LABS: Basophils # 0.1 K/mcL (0.0-0.2); Basophils % 0.7 %; Eosinophils # 0.6 K/mcL (0.0-0.6); Eosinophils % 5.4 %; Hematocrit 37.6 % (37.5-50.1); Hemoglobin 12.3 g/dL (12.9-16.9); Immature Granulocytes % 0.2 % (0-4); Lymphocytes # 4.1 K/mcL (0.6-4.6); Mean Corpuscular HGB Conc 32.7 g/dL (31.6-35.5); Mean Corpuscular Hemoglobin 29.4 pg (28.0-33.3); Mean Platelet Volume 9.3 fL (9.4-12.4); Monocytes # 0.8 K/mcL (0.0-1.3); Monocytes % 7.5 %; Neutrophils # 4.8 K/mcL (1.6-8.9); Platelet Count 232 K/mcL (140-400); Red Blood Count 4.18 M/mcL (4.19-5.50); Red Cell Distribution Width 14.4 % (11.5-14.5); Segmented Neutrophils % 46.2 %
[2017-10-16 05:03] LABS: Alanine Aminotransferase 16 Units/L (0-55); Alkaline Phosphatase 58 Units/L (38-126); Amylase 52 Units/L (25-125); Aspartate Amino Transferase 16 Units/L (5-34); BUN/Creatinine Ratio 12 (6-26); Bilirubin,Total 0.2 mg/dL (0.2-1.2); Blood Urea Nitrogen 12 mg/dL (8-26); Calcium 8.5 mg/dL (8.6-10.8); Carbon Dioxide 23 mEq/L (19-29); Chloride 111 mEq/L (98-109); Globulin 2.9 g/dL (2.4-3.5); Glucose 116 mg/dL (70-99); Lipase 17 Units/L (8-78); Osmolality,Calculated 291 (280-300); Sodium 140 mEq/L (136-145); Total Protein 5.9 g/dL (6.0-8.3); eGFR For African Americans > 60 (> 60); eGFR For Non-African Americans > 60 (> 60)
[2017-10-16 05:05] LABS: Potassium 4.1 mEq/L (3.5-4.5)
[2017-10-16] MEDS: 0.9 % Sodium Chloride 1,000 ML IVC SCH ×2 (05:52→16:08)
[2017-10-16] MEDS: *HR* Morphine 2 MG/ML SYRINGE IVP PRN ×3 (05:53→21:13)
[2017-10-16] MEDS: Pantoprazole 80 MG in 0.9 % Sodium Chloride 250 ML IVC SCH ×2 (07:59→17:32)
[2017-10-16] MEDS: Nicotine 21 MG PATCH.TD24 TD SCH ×2 (08:16→21:13)
[2017-10-16] MEDS ORDERED: Regadenoson 0.4 MG/5 ML SYRINGE IVP ONE (09:59)
--- NOTE | 2017-10-16 11:17 | Cardiology Progress Note ---
Date of Encounter: 10/16/17 Time of Encounter: 10:00 Assessment and Plan (1) Left ventricular thrombus Current Visit: Yes Status: Acute Per cardiology - Likely chronic thrombus. Hx [place] 2007, stent placed [facility]. - Echocardiogram also demonstrates apical hypokinesis, possible aneurysmal wall , unknown age, though considered non-emergent, chronic. - ECG poor R wave progression V1-V4; T-wave inversion V4; evidence of old AK. - Negative troponin. -Continue anticoagulation. (2) Cardiomyopathy Current Visit: Yes Status: Chronic Per cardiology: -Known cardiomyopathy with LVEF 45-50% this admission, previously known EF 50% 2014. -Hx PCI 2007. -Euvolemic on exam. -Will start low dose beta rasta and yaron inhibitor. Qualifiers: Cardiomyopathy type: unspecified Qualified Code(s): I42.9 - Cardiomyopathy , unspecified (3) CAD (coronary artery disease) Current Visit: Yes Status: Chronic Per cardiology: -Known CAD s.p PCI 2007. -Denies current chest pain. -ECG with no acute ischemic changes. -Admitted to chest pain on admission. -Troponin negative. -Not on asa due to GI bleed. -Plan for stress today. -Will start beta rasta. Qualifiers: Coronary Disease-Associated Artery/Lesion type: [place] artery [place] vs. transplanted heart: [place] heart Associated angina: without angina Qualified Code(s): I25.10 - Atherosclerotic heart disease of [place] coronary artery without angina pectoris (4) Factor V Leiden Current Visit: No Status: Chronic Per cardiology - Follow-up Dr. Mora, Early Childhood. - Continue Pradaxa; history Lovenox, Coumadin, Eliquis prior to Pradaxa (clot incidence lowest on Pradaxa for Mr. Rooney). - Factor V Leiden likely not major contributor to thrombus, thrombus likely chronic, due to past AK. While there is no recent echocardiogram to compare, thrombus formation secondary to AK with persistent thrombus with limited endothelialization is likely in this patient. Management remains the same, continue Pradaxa 150mg BID. -Discussed with family plan and they understand/agree. (5) Tobacco use disorder Current Visit: No Status: Chronic Per cardiology: -KNown tobacco abuse. - I spent 3 minutes reviewing smoking cessation education. Discussion w patient/family: The assessment and plan as outlined above was discussed with the patient and/or family members who expressed understanding and agreement. All questions were answered. Thank you for involving us in the care of your patient. Please call with any questions. Discussed and reviewed with . Subjective Principal diagnosis: GI Bleed, incidental chronic LV mural thrombus Interval history: Patient denies chest pain or shortness of breath. Objective Vital Signs, Last 4 Hours Temp Pulse Resp BP Pulse Ox 10/16/17 10:08 98.5 F 64 14 100/64 97 General: Conversant, No Apparent Distress HEENT: Atraumatic, Normocephaly, Mucus Membranes Moist Neck: No JVD, Normal carotid pulses Cardiac: Reg Rate and Rhythm, Normal S1 and S2, No Murmur Lungs: Normal Breath Sounds, No Wheeze, Rales, Rhonchi Neuro: Alert and responsive, No focal deficits noted Abdomen: Soft, Non-Tender Skin: No rashes noted on visualized skin Musculoskeletal: No Chest Wall Tenderness Extremities: No Clubbing, No Cyanosis, No Edema, Normal Pulses Results 10/16/17 04:22 10/16/17 04:22 Lab Results Active Medications Acetaminophen (Tylenol) 650 mg PO Q6HR PRN PRN Reason: Mild Pain (1-3) Stop: 04/14/18 22:43 Citalopram Hydrobromide (Celexa) 40 mg PO BID JOSUÉ Stop: 04/15/18 09:01 Last Admin: 10/16/17 08:00 Dose: 40 mg Heparin Sodium (Porcine) (Heparin) 6,600 unit 70 unit/kg (6600 unit) IVP Q6HR PRN PRN Reason: SEE COMMENTS Stop: 04/14/18 22:55 Heparin Sodium (Porcine) (Heparin) 3,300 unit 35 unit/kg (3300 unit) IVP Q6H PRN PRN Reason: SEE COMMENTS Stop: 04/14/18 22:55 Hydromorphone HCl (Dilaudid) 0.5 mg IVP Q4HR PRN PRN Reason: Severe Pain Stop: 04/15/18 02:27 Last Admin: 10/16/17 08:00 Dose: 0.5 mg Heparin Sodium/Dextrose (Heparin 25,000 Unit/500 Ml D5w) 25,000 unit in 500 mls @ 26.433 mls/hr IVC .[id number] JOSUÉ; 14 UNIT/KG/HR PRN Reason: Protocol Stop: 04/14/18 23:01 Last Titration: 10/15/17 05:00 Dose: 0 unit/kg/hr, 0 mls/hr Ciprofloxacin Lactate (Cipro Premix 400 Mg/200 Ml) 400 mg in 200 mls @ 200 mls/ hr IVPB Q12HR [facility] Stop: 04/15/18 06:01 Last Admin: 10/16/17 05:44 Dose: 200 mls/hr Metronidazole (Flagyl Premix 500 Mg/100 Ml) 500 mg in 100 mls @ 100 mls/hr IVPB Q8HR [facility] Stop: 04/15/18 08:01 Last Admin: 10/16/17 07:59 Dose: 100 mls/hr Sodium Chloride (0.9 % Sodium Chloride) 1,000 mls @ 120 mls/hr IVC .Q8H20M [facility] Stop: 04/15/18 05:47 Last Admin: 10/16/17 05:52 Dose: 120 mls/hr Pantoprazole Sodium 80 mg/ (Sodium Chloride) 250 mls @ 25 mls/hr IVC .Q10H [facility] Stop: 04/16/18 12:31 Last Admin: 10/16/17 07:59 Dose: 25 mls/hr Morphine Sulfate (Morphine Sulfate) 2 mg IVP Q4HR PRN PRN Reason: Moderate Pain Stop: 04/15/18 02:27 Last Admin: 10/16/17 05:53 Dose: 2 mg Naloxone HCl (Narcan) 0.4 mg IVP Q2MIN PRN PRN Reason: Opioid Reversal Stop: 04/14/18 22:43 Nicotine (Nicoderm) 21 mg TD DAILY JOSUÉ PRN Reason: Protocol Stop: 04/14/18 23:46 Last Admin: 10/16/17 08:16 Dose: Not Given Laboratory Tests 10/16/17 10/16/17 04:22 04:22 Hgb 12.3 L Creatinine 0.98 - Imaging and Cardiology Chest Xray: report reviewed Stress Test: pending Echo: report reviewed - EKG Interpretation EKG results cardiology: other (Telemetry reviewed with average HR previous 12 hours noted to be 75, sinus rhythm. PVCs and PACs noted.) - VTE Documentation of Mechanical Device: Intermittent pneumatic compression device Consult Discharge Plan - Plan Referrals: NONE,PCP [Primary Care Provider] -
--- NOTE | 2017-10-16 11:44 | Internal Med Progress Note ---
Date of Encounter: 10/16/17 Time of Encounter: 11:42 - Assessment and plan (1) Diverticulitis Current Visit: Yes Status: Acute (2) Pancreatitis Current Visit: Yes Status: Acute Qualifiers: Chronicity: acute Pancreatitis type: unspecified pancreatitis type Acute pancreatitis complication: unspecified Qualified Code(s): K85.90 - Acute pancreatitis without necrosis or infection, unspecified (3) GI bleed Current Visit: Yes Status: Acute Qualifiers: GI bleed type/associated pathology: unspecified gastrointestinal hemorrhage type Qualified Code(s): K92.2 - Gastrointestinal hemorrhage, unspecified (4) Ventricular mural thrombus Current Visit: Yes Status: Acute (5) Pulmonary embolism Current Visit: No Status: Acute Qualifiers: Pulmonary embolism type: other Chronicity: chronic Acute cor pulmonale presence: without acute cor pulmonale Qualified Code(s): I27.82 - Chronic pulmonary embolism (6) Factor V 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 However hemoglobin remained stable. GI plans to do colonoscopy. Diagnosed with acute diverticulitis and started on IV Cipro and Flagyl. 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 Paradaxa put on hold and IV heparin was started. 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 Cardiology recommends to continue Paradaxa. Lipase noted elevated. Repeat CBC CMP amylase lipase. Abdomen is slightly tender. Patient recommended to remain nothing by mouth but there is some concern if he is sneaking food. 10/15 hemoglobin is stable. Patient is planned to get EGD colonoscopy. Abdomen is improving continue IV Cipro and Flagyl. Cardiology has recommended to continue Pradaxa for left ventricular thrombus. 10/16 EGD showed severe esophagitis and gastritis with a nonbleeding gastric ulcer and prepyloric inflammatory changes. No blood noted. Colonoscopy also did not show any lesion or blood. Patient is on IV Protonix drip for now and I am suspecting that when we will discharge him and will keep him on Protonix 40 twice a day with Carafate. Audiology wants to continue Pradaxa for LV thrombus and GI did not DC'd. As noted above patient presented with rectal bleeding which while he is on Pradaxa for LV thrombus which is demonstrated on echocardiogram showing apical possible thrombus/aneurysm but suspect chronic. Continue current treatment. - Constitutional Vitals: Temp Pulse Resp BP Pulse Ox 98.5 F 64 14 100/64 97 10/16/17 10:08 10/16/17 10:08 10/16/17 10:08 10/16/17 10:08 10/16/17 10:08 General appearance: Present: A&O X 3, no acute distress, answers questions appropriately Internal Medicine: Result - Labs CBC & Chem 7: 10/16/17 04:22 10/16/17 04:22 Labs: Short CBC 10/16/17 Range/Units 04:22 WBC 10.4 (4.3-11.1) K/mcL Hgb 12.3 L (12.9-16.9) g/dL Hct 37.6 (37.5-50.1) % Plt Count 232 (140-400) K/mcL Neutrophils # 4.8 (1.6-8.9) K/mcL BMP 10/16/17 04:22 Sodium 140 Potassium 4.1 Chloride 111 H Carbon Dioxide 23 BUN 12 Creatinine 0.98 Glucose 116 H Calcium 8.5 L Cardiac Enzymes 10/16/17 Range/Units 09:58 Troponin I 0.01 (0-0.03) ng/mL Liver Function 10/16/17 Range/Units 04:22 Total Bilirubin 0.2 (0.2-1.2) mg/dL AST 16 (5-34) Units/L ALT 16 (0-55) Units/L Alkaline Phosphatase 58 (38-126) Units/L Albumin 3.0 L (3.5-5.0) g/dL - ABG Interpretation ABG results: PT/INR, D-dimer PT 12.2 Seconds (9.4-12.1) H 10/13/17 23:19 - VTE Documentation of Mechanical Device: Intermittent pneumatic compression device Consult Discharge Plan - Plan Referrals: NONE,PCP [Primary Care Provider] -
--- NOTE | 2017-10-16 17:28 | Internal Med Progress Note ---
Date of Encounter: 10/16/17 Time of Encounter: 17:26 - Assessment and plan (1) Diverticulitis Current Visit: Yes Status: Acute (2) Pancreatitis Current Visit: Yes Status: Acute Qualifiers: Chronicity: acute Pancreatitis type: unspecified pancreatitis type Acute pancreatitis complication: unspecified Qualified Code(s): K85.90 - Acute pancreatitis without necrosis or infection, unspecified (3) GI bleed Current Visit: Yes Status: Acute Qualifiers: GI bleed type/associated pathology: unspecified gastrointestinal hemorrhage type Qualified Code(s): K92.2 - Gastrointestinal hemorrhage, unspecified (4) Ventricular mural thrombus Current Visit: Yes Status: Acute (5) Pulmonary embolism Current Visit: No Status: Acute Qualifiers: Pulmonary embolism type: other Chronicity: chronic Acute cor pulmonale presence: without acute cor pulmonale Qualified Code(s): I27.82 - Chronic pulmonary embolism (6) Factor V 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 However hemoglobin remained stable. GI plans to do colonoscopy. Diagnosed with acute diverticulitis and started on IV Cipro and Flagyl. 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 Paradaxa put on hold and IV heparin was started. 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 Cardiology recommends to continue Paradaxa. Lipase noted elevated. Repeat CBC CMP amylase lipase. Abdomen is slightly tender. Patient recommended to remain nothing by mouth but there is some concern if he is sneaking food. 10/15 hemoglobin is stable. Patient is planned to get EGD colonoscopy. Abdomen is improving continue IV Cipro and Flagyl. Cardiology has recommended to continue Pradaxa for left ventricular thrombus. 10/16 EGD showed severe esophagitis and gastritis with a nonbleeding gastric ulcer and prepyloric inflammatory changes. No blood noted. Colonoscopy also did not show any lesion or blood. Patient is on IV Protonix drip for now and I am suspecting that when we will discharge him and will keep him on Protonix 40 twice a day with Carafate. He is on IV Cipro and Flagyl for diverticulitis. Pancreatitis has resolved and now he has been started on diet which he is tolerating well Patient underwent nuclear stress test today which showed gated EF 36% with a fixed defect but no reversible ischemia chest pain. Cardiology wants to continue Pradaxa for LV thrombus and factor V deficiency . As noted above patient presented with rectal bleeding which while he is on Pradaxa for LV thrombus which is demonstrated on echocardiogram showing apical possible thrombus/aneurysm but suspect chronic. Continue current treatment. - Constitutional Vitals: Temp Pulse Resp BP Pulse Ox 98.4 F 67 14 145/78 100 10/16/17 13:40 10/16/17 13:40 10/16/17 13:40 10/16/17 13:40 10/16/17 13:40 General appearance: Present: A&O X 3, no acute distress, answers questions appropriately - Head Head exam: Present: atraumatic, normocephalic - Eye Eye exam: Present: PERRL, conjuntiva pink, sclera anicteric Pupils: Present: PERRL - Neck Neck exam general surgery: Present: supple, trachea midline. Absent: lymphadenopathy - Respiratory Respiratory exam: Present: CTAB. Absent: accessory muscle use, rales, rhonchi, wheezes - Cardiovascular Cardiovascular exam: Present: RRR, +S1, +S2. Absent: diastolic murmur, gallop, rubs, systolic murmur - GI/Abdominal GI/Abdominal exam: Present: normal bowel sounds, soft, no peritoneal signs. Absent: distended, tenderness - Extremities Exam Extremities exam: Present: warm, radial pulses palpable and symmetrical. Absent : calf tenderness, cyanotic, pedal edema - Neurological Exam Neurological exam: Present: CN II-XII intact, oriented X3, no focal deficits. Absent: pronater drift, facial droop, speech deficit - Skin Skin exam: Present: dry, intact Internal Medicine: Result - Labs CBC & Chem 7: 10/16/17 04:22 10/16/17 04:22 Labs: Short CBC 10/16/17 Range/Units 04:22 WBC 10.4 (4.3-11.1) K/mcL Hgb 12.3 L (12.9-16.9) g/dL Hct 37.6 (37.5-50.1) % Plt Count 232 (140-400) K/mcL Neutrophils # 4.8 (1.6-8.9) K/mcL BMP 10/16/17 04:22 Sodium 140 Potassium 4.1 Chloride 111 H Carbon Dioxide 23 BUN 12 Creatinine 0.98 Glucose 116 H Calcium 8.5 L Cardiac Enzymes 10/16/17 Range/Units 09:58 Troponin I 0.01 (0-0.03) ng/mL Liver Function 10/16/17 Range/Units 04:22 Total Bilirubin 0.2 (0.2-1.2) mg/dL AST 16 (5-34) Units/L ALT 16 (0-55) Units/L Alkaline Phosphatase 58 (38-126) Units/L Albumin 3.0 L (3.5-5.0) g/dL - ABG Interpretation ABG results: PT/INR, D-dimer PT 12.2 Seconds (9.4-12.1) H 10/13/17 23:19 - VTE Documentation of Mechanical Device: Intermittent pneumatic compression device Consult Discharge Plan - Plan Referrals: NONE,PCP [Primary Care Provider] -
[2017-10-17] MEDS: MetroNIDAZOLE 500 MG/100 ML 500 MG/100 ML BAG IVPB SCH ×2 (00:01→09:36)
[2017-10-17] MEDS: *HR* HYDROmorphone (PF) 1 MG/ML SYRINGE IVP PRN ×3 (00:02→12:15)
[2017-10-17] MEDS: *HR* Morphine 2 MG/ML SYRINGE IVP PRN ×2 (03:27→10:20)
[2017-10-17] MEDS: Pantoprazole 80 MG in 0.9 % Sodium Chloride 250 ML IVC SCH (03:28)
[2017-10-17 05:52] LABS: Basophils # 0.1 K/mcL (0.0-0.2); Basophils % 0.7 %; Eosinophils # 0.4 K/mcL (0.0-0.6); Eosinophils % 3.7 %; Hematocrit 38.3 % (37.5-50.1); Immature Granulocytes % 0.2 % (0-4); Lymphocytes # 4.6 K/mcL (0.6-4.6); Lymphocytes % 42.3 %; Mean Corpuscular HGB Conc 33.9 g/dL (31.6-35.5); Mean Corpuscular Volume 88.5 fL (83.0-100.0); Monocytes # 0.9 K/mcL (0.0-1.3); Monocytes % 8.5 %; Neutrophils # 4.9 K/mcL (1.6-8.9); Platelet Count 200 K/mcL (140-400); Red Blood Count 4.33 M/mcL (4.19-5.50); Segmented Neutrophils % 44.6 %
[2017-10-17 06:08] LABS: Alanine Aminotransferase 27 Units/L (0-55); Albumin 3.3 g/dL (3.5-5.0); Albumin/Globulin Ratio 1.1 (1.1-2.2); Alkaline Phosphatase 57 Units/L (38-126); Amylase 53 Units/L (25-125); Aspartate Amino Transferase 29 Units/L (5-34); Bilirubin,Total 0.3 mg/dL (0.2-1.2); Blood Urea Nitrogen 10 mg/dL (8-26); Calcium 8.9 mg/dL (8.6-10.8); Carbon Dioxide 26 mEq/L (19-29); Chloride 108 mEq/L (98-109); Glucose 95 mg/dL (70-99); Lipase 15 Units/L (8-78); Osmolality,Calculated 289 (280-300); Potassium 3.9 mEq/L (3.5-4.5); Sodium 140 mEq/L (136-145); Total Protein 6.3 g/dL (6.0-8.3)
[2017-10-17 06:20] LABS: BUN/Creatinine Ratio 11 (6-26); eGFR For African Americans > 60 (> 60); eGFR For Non-African Americans > 60 (> 60)
--- NOTE | 2017-10-17 08:38 | Cardiology Progress Note ---
Date of Encounter: 10/17/17 Time of Encounter: 08:15 Assessment and Plan (1) Left ventricular thrombus Current Visit: Yes Status: Acute Per cardiology - Likely chronic thrombus. Hx [place] 2007, stent placed [facility]. - Echocardiogram also demonstrates apical hypokinesis, possible aneurysmal wall , unknown age, though considered non-emergent, chronic. - ECG poor R wave progression V1-V4; T-wave inversion V4; evidence of old [place]. - Negative troponin. -Recommend continuing anticoagulation. (2) Cardiomyopathy Current Visit: Yes Status: Chronic Per cardiology: -Known cardiomyopathy with LVEF 45-50% this admission, previously known EF 50% 2014. -Hx PCI 2007. -Euvolemic on exam. -ON low dose beta rasta and yaron inhibitor. -Will continue to monitor in outpatient setting. Follow up set. Qualifiers: Cardiomyopathy type: unspecified Qualified Code(s): I42.9 - Cardiomyopathy , unspecified (3) CAD (coronary artery disease) Current Visit: Yes Status: Chronic Per cardiology: -Known CAD s.p PCI 2007. -Denies current chest pain. -ECG with no acute ischemic changes. -Admitted to chest pain on admission. -Troponin negative. -Not on asa due to GI bleed. On statin and beta rasta -Stress with evidence of prior infarct, no ischemia. -Cardiology will sign off. Qualifiers: Coronary Disease-Associated Artery/Lesion type: [place] artery [place] vs. transplanted heart: [place] heart Associated angina: without angina Qualified Code(s): I25.10 - Atherosclerotic heart disease of [place] coronary artery without angina pectoris (4) Factor V Leiden Current Visit: No Status: Chronic Per cardiology - Follow-up Dr. Mora, [employer]. - Continue Pradaxa; history Lovenox, Coumadin, Eliquis prior to Pradaxa (clot incidence lowest on Pradaxa for Mr. Rooney). - Factor V Leiden likely not major contributor to thrombus, thrombus likely chronic, due to past AR. While there is no recent echocardiogram to compare, thrombus formation secondary to [place] with persistent thrombus with limited endothelialization is likely in this patient. -Ordered heparin drip. -Recommend continuing oral anticoagulation. (5) Tobacco use disorder Current Visit: No Status: Chronic Per cardiology: -KNown tobacco abuse. - I spent 3 minutes reviewing smoking cessation education. Discussion w patient/family: The assessment and plan as outlined above was discussed with the patient and/or family members who expressed understanding and agreement. All questions were answered. Thank you for involving us in the care of your patient. Please call with any questions. Discussed and reviewed with . Subjective Principal diagnosis: GI Bleed, incidental chronic LV mural thrombus Interval history: Patient denies chest pain or shortness of breath. Patient states he feels well this morning. Objective Vital Signs Temperature 98.4 F 10/13/17 17:52 Pulse Rate 104 10/13/17 17:52 Respiratory Rate 22 10/13/17 17:52 Blood Pressure 148/83 10/13/17 17:52 O2 Sat by Pulse Oximetry 98 10/13/17 17:52 Temperature 98.2 F 10/17/17 03:45 Pulse Rate 68 10/17/17 03:45 Respiratory Rate 18 10/17/17 03:45 Blood Pressure 139/82 10/17/17 03:45 O2 Sat by Pulse Oximetry 98 10/17/17 03:45 Oxygen Delivery Oxygen Delivery Room Air General: Conversant, No Apparent Distress HEENT: Atraumatic, Normocephaly, Mucus Membranes Moist Neck: No JVD, Normal carotid pulses Cardiac: Reg Rate and Rhythm, Normal S1 and S2, No Murmur Lungs: Normal Breath Sounds, No Wheeze, Rales, Rhonchi Neuro: Alert and responsive, No focal deficits noted Abdomen: Soft, Non-Tender Skin: No rashes noted on visualized skin Musculoskeletal: No Chest Wall Tenderness Extremities: No Clubbing, No Cyanosis, No Edema, Normal Pulses Results 10/17/17 05:38 10/17/17 05:38 Lab Results Active Medications Acetaminophen (Tylenol) 650 mg PO Q6HR PRN PRN Reason: Mild Pain (1-3) Stop: 04/14/18 22:43 Atorvastatin Calcium (Lipitor) 40 mg PO HS JOSUÉ Stop: 04/17/18 21:01 Last Admin: 10/16/17 21:13 Dose: 40 mg Citalopram Hydrobromide (Celexa) 40 mg PO BID JOSUÉ Stop: 04/15/18 09:01 Last Admin: 10/16/17 21:13 Dose: 40 mg Heparin Sodium (Porcine) (Heparin) 6,600 unit 70 unit/kg (6600 unit) IVP Q6HR PRN PRN Reason: SEE COMMENTS Stop: 04/14/18 22:55 Heparin Sodium (Porcine) (Heparin) 3,300 unit 35 unit/kg (3300 unit) IVP Q6H PRN PRN Reason: SEE COMMENTS Stop: 04/14/18 22:55 Hydromorphone HCl (Dilaudid) 0.5 mg IVP Q4HR PRN PRN Reason: Severe Pain Stop: 04/15/18 02:27 Last Admin: 10/17/17 07:51 Dose: 0.5 mg Heparin Sodium/Dextrose (Heparin 25,000 Unit/500 Ml D5w) 25,000 unit in 500 mls @ 26.433 mls/hr IVC .[id number] JOSUÉ; 14 UNIT/KG/HR PRN Reason: Protocol Stop: 04/14/18 23:01 Last Titration: 10/15/17 05:00 Dose: 0 unit/kg/hr, 0 mls/hr Ciprofloxacin Lactate (Cipro Premix 400 Mg/200 Ml) 400 mg in 200 mls @ 200 mls/ hr IVPB Q12HR [facility] Stop: 04/15/18 06:01 Last Admin: 10/17/17 06:17 Dose: 200 mls/hr Metronidazole (Flagyl Premix 500 Mg/100 Ml) 500 mg in 100 mls @ 100 mls/hr IVPB Q8HR [facility] Stop: 04/15/18 08:01 Last Infusion: 10/17/17 01:01 Dose: Infused Pantoprazole Sodium 80 mg/ (Sodium Chloride) 250 mls @ 25 mls/hr IVC .Q10H [facility] Stop: 04/16/18 12:31 Last Admin: 10/17/17 03:28 Dose: 25 mls/hr Lisinopril (Zestril) 2.5 mg PO DAILY JOSUÉ PRN Reason: Protocol Stop: 04/18/18 09:01 Metoprolol Succinate (Toprol Xl) 12.5 mg PO DAILY [facility] Stop: 04/18/18 09:01 Morphine Sulfate (Morphine Sulfate) 2 mg IVP Q4HR PRN PRN Reason: Moderate Pain Stop: 04/15/18 02:27 Last Admin: 10/17/17 03:27 Dose: 2 mg Naloxone HCl (Narcan) 0.4 mg IVP Q2MIN PRN PRN Reason: Opioid Reversal Stop: 04/14/18 22:43 Nicotine (Nicoderm) 21 mg TD DAILY JOSUÉ PRN Reason: Protocol Stop: 04/17/18 21:01 Last Admin: 10/16/17 21:13 Dose: 21 mg Laboratory Tests 10/17/17 10/17/17 05:38 05:38 Hgb 13.0 Creatinine 0.88 - Imaging and Cardiology Chest Xray: report reviewed Stress Test: report reviewed Echo: report reviewed - EKG Interpretation EKG results cardiology: other (Telemetry reviewed with average HR previous 12 hours noted to be 75, sinus rhythm. PVCs and PACs noted.) - VTE Documentation of Mechanical Device: Intermittent pneumatic compression device Consult Discharge Plan - Plan Referrals: NONE,PCP [Primary Care Provider] -
[2017-10-17] MEDS ORDERED: Metoprolol XL (24 HR) Succ 25 MG TAB.ER.24H PO SCH (09:00)
[2017-10-17] MEDS: Nicotine 21 MG PATCH.TD24 TD SCH (09:35)
[2017-10-17 10:11] VITALS: BP 147/88
--- NOTE | 2017-10-17 10:48 | Discharge Summary ---
Date of Encounter: 10/17/17 Time of Encounter: 10:41 - Discharge Diagnosis (1) Diverticulitis Priority: Primary Status: Acute (2) Pancreatitis Priority: Primary Status: Acute Qualifiers: Chronicity: acute Pancreatitis type: unspecified pancreatitis type Acute pancreatitis complication: unspecified Qualified Code(s): K85.90 - Acute pancreatitis without necrosis or infection, unspecified (3) GI bleed Priority: Primary Status: Acute Qualifiers: GI bleed type/associated pathology: unspecified gastrointestinal hemorrhage type Qualified Code(s): K92.2 - Gastrointestinal hemorrhage, unspecified (4) Ventricular mural thrombus Priority: Secondary Status: Acute (5) Pulmonary embolism Priority: Secondary Status: Acute Qualifiers: Pulmonary embolism type: other Chronicity: chronic Acute cor pulmonale presence: without acute cor pulmonale Qualified Code(s): I27.82 - Chronic pulmonary embolism (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 Sucralfate [Carafate] 1 gm PO QIDAC #120 tablet Home Medications: Citalopram Hydrobromide [Celexa] 40 mg PO BID 02/20/17 [History] Dabigatran [Pradaxa] 150 mg PO BID 02/25/17 [History] Acetaminophen [Tylenol] 650 mg PO Q6HR PRN tablet 10/17/17 [Rx] Atorvastatin [Lipitor] 40 mg PO HS #30 tablet 10/17/17 [Rx] Ciprofloxacin HCl [Cipro] 500 mg PO BID #14 tablet 10/17/17 [Rx] Lisinopril [Zestril] 10 mg PO DAILY #30 tablet 10/17/17 [Rx] Metoprolol XL (24 HR) Succ [Toprol Xl] 12.5 mg PO DAILY #30 tab.er.24h 10/17/17 [Rx] Nicotine Patch [Nicoderm] 21 mg TD DAILY patch.td24 10/17/17 [Rx] Pantoprazole Sodium [Protonix] 40 mg PO BID #60 tablet. 10/17/17 [Rx] Sucralfate [Carafate] 1 gm PO QIDAC #120 tablet 10/17/17 [Rx] metroNIDAZOLE [Flagyl] 500 mg PO TID #21 tablet 10/17/17 [Rx] Allergies/Adverse Reactions: 3 Allergy/AdvReac Type Severity Reaction Status Date / Time Penicillins Allergy Hives Verified 06/03/17 13:13 Procedures/tests Complete & Pending: Procedures Performed prior 72 hours Category Date Time Status NM [place] perf SPECT multi [NM] Routine Exams 10/16/17 09:20 Taken ECG 12 lead ECG [ECG] Stat Y 10/14/17 11:09 Completed SP pharm nuclear stress Stat Y 10/16/17 09:20 Completed Date of admission: 10/14/17 06:06 Primary care physician: PCP NONE Discharging clinician: Wesley Mcclain Anticipated date of discharge: 10/17/17 - Patient Status Disposition: Home, Self-Care Condition: Good Functional capacity at discharge: independent ambulation Overall status at discharge: patient is progressing back to baseline - Discharge Instructions Follow Up With: NONE,PCP [Primary Care Provider] - - Diet and Activity Activity: resume usual activities as tolerated Diet: advance to your usual diet Hospital course: Mr. Rooney is a 37 year old male Admitted for bright red rectal bleed. However hemoglobin remained stable. EGD showed severe esophagitis and gastritis with a nonbleeding gastric ulcer and prepyloric inflammatory changes. No blood noted. Colonoscopy also did not show any lesion or blood. Diagnosed with acute diverticulitis and treated with IV Cipro and Flagyl. 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 . 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 Cardiology recommends to continue Paradaxa.Patient underwent nuclear stress test today which showed gated EF 36% with a fixed defect but no reversible ischemia chest pain. We have recommended patient to stay for another day or so as he is on IV Protonix due to severe esophagitis and gastritis however he is insisting to go home. If she does not agree he can be discharged on by mouth Protonix. Risk complication treatment option discussed with patient and he verbalized good understanding but still requesting to go home. - Time Spent with Patient Total time spent providing and/or coordinating discharge services: Greater than 30 minutes - Constitutional Vitals: Temp Pulse Resp BP Pulse Ox 97.9 F 67 14 147/88 97 10/17/17 10:08 10/17/17 10:08 10/17/17 10:08 10/17/17 10:08 10/17/17 10:08 General appearance: Present: A&O X 3, no acute distress, answers questions appropriately - Head Head exam: Present: atraumatic, normocephalic - Eye Eye exam: Present: PERRL, conjuntiva pink, sclera anicteric Pupils: Present: PERRL - Neck Neck exam general surgery: Present: supple, trachea midline. Absent: lymphadenopathy - Respiratory Respiratory exam: Present: CTAB. Absent: accessory muscle use, rales, rhonchi, wheezes - Cardiovascular Cardiovascular exam: Present: RRR, +S1, +S2. Absent: diastolic murmur, gallop, rubs, systolic murmur - GI/Abdominal GI/Abdominal exam: Present: normal bowel sounds, soft, no peritoneal signs. Absent: distended, tenderness - Extremities Exam Extremities exam: Present: warm, radial pulses palpable and symmetrical. Absent : calf tenderness, cyanotic, pedal edema - Neurological Exam Neurological exam: Present: CN II-XII intact, oriented X3, no focal deficits. Absent: pronater drift, facial droop, speech deficit - Skin Skin exam: Present: dry, intact - VTE Documentation of Mechanical Device: Intermittent pneumatic compression device
[2017-10-17] MEDS ORDERED: metroNIDAZOLE 500 MG TABLET PO SCH (15:00)
== END 2017-10-17 14:15 | disposition home or self-care (01) | DRG 380 ==
LOC: EMEROO 17:30 → 3ANU 17:30
PROVIDERS: ADMIT Internal Medicine; ATTEND Internal Medicine
PROC: ENDOEBX (2017-10-15 14:30)

== ENCOUNTER 2017-10-30 17:48 | Inpatient (IN) ==
[2017-10-30] MEDS ORDERED: 0.9 % Sodium Chloride 1,000 ML IVC ONE (19:19)
[2017-10-30] MEDS ORDERED: Pantoprazole 80 MG in 0.9 % Sodium Chloride 50 ML IVPB ONE (19:19)
[2017-10-30] MEDS ORDERED: *HR* Morphine 2 MG/ML SYRINGE IVP ONE (19:19)
--- NOTE | 2017-10-30 19:26 | Emergency Department Note ---
Disposition Clinical Impression: GI bleed Qualifiers: GI bleed type/associated pathology: unspecified gastrointestinal hemorrhage type Qualified Code(s): K92.2 - Gastrointestinal hemorrhage, unspecified Abdominal pain Qualifiers: Abdominal location: left lower quadrant Qualified Code(s): R10.32 - Left lower quadrant pain Disposition: Admitted As Inpatient Condition: Fair Time of Disposition: 22:18 GI Bleed HPI - General Chief complaint: ED GI Bleed Stated complaint: abd pain, rectal bleeding Source: patient Limitations: no limitations Nursing Notes Reviewed: Yes Vital Signs Reviewed: Yes - History of Present Illness HPI Narrative: 37-year-old male past medical history of factor V Leiden deficiency, recent diagnosis of peptic ulcer disease, diverticulitis, recent admission a month ago. Patient states that he has had 5 days of generalized abdominal pain, more so in the left lower quadrant, as well as 3 days' worth of melenic stools. Patient states he has nausea but denies vomiting. He is on blood thinning medication. Patient denies any chest pain, pressure, tightness, shortness of breath, weakness. - Related Data Home Medications Medication Instructions Recorded Confirmed Citalopram Hydrobromide [Celexa] 40 mg PO BID 02/20/17 10/30/17 Dabigatran [Pradaxa] 150 mg PO BID 02/25/17 10/30/17 Pantoprazole Sodium [Protonix] 40 mg PO DAILY 10/30/17 10/30/17 Previous Rx's Medication Instructions Recorded Atorvastatin [Lipitor] 40 mg PO HS #30 tablet 10/17/17 Lisinopril [Zestril] 10 mg PO DAILY #30 tablet 10/17/17 Metoprolol XL (24 HR) Succ [Toprol 12.5 mg PO DAILY #30 tab.er.24h 10/17/17 Xl] Nicotine Patch [Nicoderm] 21 mg TD DAILY patch.td24 10/17/17 Sucralfate [Carafate] 1 gm PO QIDAC #120 tablet 10/17/17 Allergies Allergy/AdvReac Type Severity Reaction Status Date / Time Penicillins Allergy Hives Verified 10/30/17 18:08 All systems ED: reviewed and negative except as stated. Review of Systems: As Per HPI Constitutional: Denies: fever, weakness Cardiovascular: Denies: chest pain, palpitations Respiratory: Denies: cough, dyspnea Gastrointestinal: Reports: abdominal pain, nausea, melena, hematochezia. Denies : vomiting Genitourinary: Denies: urgency, dysuria, frequency, hematuria Musculoskeletal: Denies: back pain, neck pain Integumentary: Denies: rash Neurological: Denies: headache, weakness Hematological/Lymphatic: Reports: easy bleeding Past Medical History - Past Medical History Medical history: Reports: DVT, hyperlipidemia, hypertension, myocardial infarction, pulmonary embolus, other Surgical history: Reports: angioplasty/stent, splenectomy Psychiatric history: Reports: anxiety, depression - Social History Smoking Status: Current every day smoker Smokeless Tobacco Status: No Alcohol use: Reports: rarely Drug use: Reports: marijuana Physical Exam CONSTITUTIONAL: Alert and oriented X3, well-nourished, uncomfortable appearing HEAD: Normocephalic; atraumatic. EYES: PERRL, no scleral icterus. NOSE: The nose is normal in appearance without rhinorrhea RESP: Normal chest excursion with respiration; breath sounds clear and equal bilaterally; no wheezes, rhonchi, or rales CARD: Regular rhythm, without murmurs, rub or gallop ABD: Non-distended; tenderness to palpation of the LLQ, soft,without rigidity, rebound or guarding GI: no hemorrhoids, gross dark red stool SKIN: Normal for age and race; warm and dry; no apparent lesions - General Limitations: no limitations General appearance: alert, in no apparent distress Course Vital Signs Temperature 99 F 10/30/17 18:04 Pulse Rate 93 10/30/17 18:04 Respiratory Rate 18 10/30/17 18:04 Blood Pressure 140/91 10/30/17 18:04 O2 Sat by Pulse Oximetry 98 10/30/17 18:04 Temperature 99 F 10/30/17 18:04 Pulse Rate 90 10/30/17 21:47 Respiratory Rate 12 10/30/17 21:47 Blood Pressure 118/92 10/30/17 21:47 O2 Sat by Pulse Oximetry 95 10/30/17 21:47 Oxygen Delivery Oxygen Delivery Room Air GI Bleed - MDM Narrative Medical decision making narrative: 31 seizure male presents emergency department with concern for gastrointestinal hemorrhage as well as intra-abdominal abnormality. This is a patient who is on blood thinning medications. He is on the due to factor V Leiden deficiency. His hemoglobin here was within normal limits. He did not reveal any evidence of hypovolemia as he was not tachycardic or hypotensive. We obtained a CT scan of the abdomen and pelvis to rule out any intra-abdominal abnormality. There was only evidence of left ventricular thrombus, which is not new. EKG did not reveal any ischemic changes. Patient has a mild leukocytosis here, but I think this may be due to stressed demargination. Lactic acid is within normal limits. I have consulted gastroenterology, and he agreed to see the patient tomorrow morning. Patient was started on Protonix drip. The emergency department as there has been some reported history of peptic ulcer disease as well as patient reportedly melenic stools. I have admitted this patient to the hospitalist. Chest X-Ray 10/30/17 19:19 IMPRESSION: No acute cardiopulmonary disease. No free air in the abdomen. D/ / Keanu Payne MD / Keanu Payne MD Interpreting Provider: Keanu Payne MD Abdomen/Pelvis CT 10/30/17 19:23 IMPRESSION: 1. No acute abnormality detected. 2. 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 3. Previous splenectomy. 4. Small filling defect again identified within the left ventricular apex. This is similar when compared to the previous exam. Again, small ventricular thrombus is considered. Correlation with echocardiography is recommended if that has not been performed. D/ / Shan Henriquez MD / Shan Henriquez MD Interpreting Provider: Shan Henriquez MD - Lab Data Result diagrams: 10/30/17 18:54 10/30/17 18:54 Lab Results 10/30/17 10/30/17 10/30/17 Range/Units 18:54 18:54 18:54 WBC 15.8 H (4.3-11.1) K/mcL RBC 4.88 (4.19-5.50) M/mcL Hgb 14.6 (12.9-16.9) g/dL Hct 42.9 (37.5-50.1) % MCV 87.9 (83.0-100.0) fL MCH 29.9 (28.0-33.3) pg MCHC 34.0 (31.6-35.5) g/dL RDW 13.8 (11.5-14.5) % Plt Count 274 (140-400) K/mcL MPV 8.8 L (9.4-12.4) fL Immature Gran % 0.3 (0-4) % Seg Neutrophils % 57.7 % Lymphocytes % 31.6 % Monocytes % 7.9 % Eosinophils % 1.8 % Basophils % 0.7 % Neutrophils # 9.1 H (1.6-8.9) K/mcL Lymphocytes # 5.0 H (0.6-4.6) K/mcL Monocytes # 1.3 (0.0-1.3) K/mcL Eosinophils # 0.3 (0.0-0.6) K/mcL Basophils # 0.1 (0.0-0.2) K/mcL PT (9.4-12.1) Seconds INR APTT (26.0-36.0) Seconds Sodium 141 (136-145) mEq/L Potassium 4.0 (3.5-4.5) mEq/L Chloride 106 (98-109) mEq/L Carbon Dioxide 22 (19-29) mEq/L BUN 8 (8-26) mg/dL Creatinine 0.99 (0.72-1.25) mg/dL Est GFR ( Amer) > 60 (> 60) Est GFR (Non-Af Amer) > 60 (> 60) BUN/Creatinine Ratio 8 (6-26) Glucose 97 (70-99) mg/dL Calculated Osmolality 290 (280-300) Lactic Acid (0.5-2.2) mmol/L Calcium 9.6 (8.6-10.8) mg/dL Magnesium 2.0 (1.6-2.6) mg/dL Total Bilirubin 0.3 (0.2-1.2) mg/dL AST 17 (5-34) Units/L ALT 27 (0-55) Units/L Alkaline Phosphatase 66 (38-126) Units/L Troponin I 0.01 (0-0.03) ng/mL Serum Total Protein 8.1 (6.0-8.3) g/dL Albumin 3.9 (3.5-5.0) g/dL Globulin 4.2 H (2.4-3.5) g/dL Albumin/Globulin Ratio 0.9 L (1.1-2.2) Lipase 37 (8-78) Units/L Stool Occult Blood (Negative) Blood Type Antibody Screen 10/30/17 10/30/17 10/30/17 Range/Units 18:54 18:54 19:13 WBC (4.3-11.1) K/mcL RBC (4.19-5.50) M/mcL Hgb (12.9-16.9) g/dL Hct (37.5-50.1) % MCV (83.0-100.0) fL MCH (28.0-33.3) pg MCHC (31.6-35.5) g/dL RDW (11.5-14.5) % Plt Count (140-400) K/mcL MPV (9.4-12.4) fL Immature Gran % (0-4) % Seg Neutrophils % % Lymphocytes % % Monocytes % % Eosinophils % % Basophils % % Neutrophils # (1.6-8.9) K/mcL Lymphocytes # (0.6-4.6) K/mcL Monocytes # (0.0-1.3) K/mcL Eosinophils # (0.0-0.6) K/mcL Basophils # (0.0-0.2) K/mcL PT 12.3 H (9.4-12.1) Seconds INR 1.1 APTT 35.9 (26.0-36.0) Seconds Sodium (136-145) mEq/L Potassium (3.5-4.5) mEq/L Chloride (98-109) mEq/L Carbon Dioxide (19-29) mEq/L BUN (8-26) mg/dL Creatinine (0.72-1.25) mg/dL Est GFR ( Amer) (> 60) Est GFR (Non-Af Amer) (> 60) BUN/Creatinine Ratio (6-26) Glucose (70-99) mg/dL Calculated Osmolality (280-300) Lactic Acid (0.5-2.2) mmol/L Calcium (8.6-10.8) mg/dL Magnesium (1.6-2.6) mg/dL Total Bilirubin (0.2-1.2) mg/dL AST (5-34) Units/L ALT (0-55) Units/L Alkaline Phosphatase (38-126) Units/L Troponin I (0-0.03) ng/mL Serum Total Protein (6.0-8.3) g/dL Albumin (3.5-5.0) g/dL Globulin (2.4-3.5) g/dL Albumin/Globulin Ratio (1.1-2.2) Lipase (8-78) Units/L Stool Occult Blood Positive A (Negative) Blood Type A POSITIVE Antibody Screen NEGATIVE 10/30/17 Range/Units 19:34 WBC (4.3-11.1) K/mcL RBC (4.19-5.50) M/mcL Hgb (12.9-16.9) g/dL Hct (37.5-50.1) % MCV (83.0-100.0) fL MCH (28.0-33.3) pg MCHC (31.6-35.5) g/dL RDW (11.5-14.5) % Plt Count (140-400) K/mcL MPV (9.4-12.4) fL Immature Gran % (0-4) % Seg Neutrophils % % Lymphocytes % % Monocytes % % Eosinophils % % Basophils % % Neutrophils # (1.6-8.9) K/mcL Lymphocytes # (0.6-4.6) K/mcL Monocytes # (0.0-1.3) K/mcL Eosinophils # (0.0-0.6) K/mcL Basophils # (0.0-0.2) K/mcL PT (9.4-12.1) Seconds INR APTT (26.0-36.0) Seconds Sodium (136-145) mEq/L Potassium (3.5-4.5) mEq/L Chloride (98-109) mEq/L Carbon Dioxide (19-29) mEq/L BUN (8-26) mg/dL Creatinine (0.72-1.25) mg/dL Est GFR ( Amer) (> 60) Est GFR (Non-Af Amer) (> 60) BUN/Creatinine Ratio (6-26) Glucose (70-99) mg/dL Calculated Osmolality (280-300) Lactic Acid 1.2 (0.5-2.2) mmol/L Calcium (8.6-10.8) mg/dL Magnesium (1.6-2.6) mg/dL Total Bilirubin (0.2-1.2) mg/dL AST (5-34) Units/L ALT (0-55) Units/L Alkaline Phosphatase (38-126) Units/L Troponin I (0-0.03) ng/mL Serum Total Protein (6.0-8.3) g/dL Albumin (3.5-5.0) g/dL Globulin (2.4-3.5) g/dL Albumin/Globulin Ratio (1.1-2.2) Lipase (8-78) Units/L Stool Occult Blood (Negative) Blood Type Antibody Screen - EKG Data EKG attestation: Yes I reviewed and interpreted this EKG. EKG results narrative: 19:28 Ventricular rate 86 bpm, RI interval 148 ms, QRS duration 83 ms, QT 337 ms, QTC 381 segs, normal axis. Sinus rhythm with a ventricular rate of 86 bpm. No acute ischemic changes are noted on the EKG. No significant changes compared to the old EKG dated on October 14, 2017. Attestation Statement - Attestation Attestation: I, Amol Carmichael MD, personally evaluated this patient and discussed their management with the resident physician. I reviewed the resident's note and agree with the documented findings, medical decision making, and plan of care. 37-year-old male presents to the emergency department complaining of left upper quadrant abdominal pain for the past 4 or 5 days. Yesterday he developed rectal bleeding with some bright red blood which today has been less in amount and is more dark red. Some nausea but no vomiting. No fever. Patient was just admitted here about 2 weeks ago with similar symptoms as well as apparently treated for diverticulitis. He does have a prior history of diverticulitis and is actually had a partial colectomy in the past secondary to diverticulitis. He has a history of factor V Leiden deficiency and is on Pradaxa. History of multiple clots. On examination patient is a well-developed well-nourished well-appearing male in no acute distress. He is alert and oriented 3. There is no cyanosis or diaphoresis. Chest is nontender to palpation. Breath sounds are clear and equal bilaterally. Heart regular rate and rhythm. Abdomen is soft with present bowel sounds. Moderate left upper quadrant tenderness with mild guarding. No rebound tenderness. No tympany or distention. Labs reviewed. Hemoglobin 14.6. EKG shows a normal sinus rhythm with no acute changes and unchanged from prior EKG. Chest x-ray negative. CT the abdomen and pelvis showed no acute abnormality. The hospitalist, Dr. Tinajero, was consulted and accepted admission of the patient. Dr. Yeung also discussed the case with the endoscopist salesperson household appliances, Dr. Trejo, at the request of the hospitalist.
[2017-10-30 19:29] LABS: Basophils # 0.1 K/mcL (0.0-0.2); Basophils % 0.7 %; Eosinophils # 0.3 K/mcL (0.0-0.6); Eosinophils % 1.8 %; Hematocrit 42.9 % (37.5-50.1); Hemoglobin 14.6 g/dL (12.9-16.9); Immature Granulocytes % 0.3 % (0-4); Lymphocytes % 31.6 %; Mean Corpuscular Hemoglobin 29.9 pg (28.0-33.3); Mean Corpuscular Volume 87.9 fL (83.0-100.0); Mean Platelet Volume 8.8 fL (9.4-12.4); Monocytes # 1.3 K/mcL (0.0-1.3); Monocytes % 7.9 %; Neutrophils # 9.1 K/mcL (1.6-8.9); Platelet Count 274 K/mcL (140-400); Red Blood Count 4.88 M/mcL (4.19-5.50); Red Cell Distribution Width 13.8 % (11.5-14.5); Segmented Neutrophils % 57.7 %
[2017-10-30] MEDS ORDERED: Pantoprazole 40 MG in 0.9 % Sodium Chloride Mini Bag 100 ML IVC SCH (19:30)
[2017-10-30 19:34] LABS: INR 1.1; Prothrombin Time 12.3 Seconds (9.4-12.1)
[2017-10-30 19:37] LABS: Activated Partial Thrombo Time 35.9 Seconds (26.0-36.0)
[2017-10-30 19:42] LABS: Alanine Aminotransferase 27 Units/L (0-55); Albumin 3.9 g/dL (3.5-5.0); Albumin/Globulin Ratio 0.9 (1.1-2.2); Alkaline Phosphatase 66 Units/L (38-126); Aspartate Amino Transferase 17 Units/L (5-34); BUN/Creatinine Ratio 8 (6-26); Bilirubin,Total 0.3 mg/dL (0.2-1.2); Blood Urea Nitrogen 8 mg/dL (8-26); Calcium 9.6 mg/dL (8.6-10.8); Carbon Dioxide 22 mEq/L (19-29); Chloride 106 mEq/L (98-109); Globulin 4.2 g/dL (2.4-3.5); Glucose 97 mg/dL (70-99); Lipase 37 Units/L (8-78); Osmolality,Calculated 290 (280-300); Sodium 141 mEq/L (136-145); Total Protein 8.1 g/dL (6.0-8.3); eGFR For African Americans > 60 (> 60); eGFR For Non-African Americans > 60 (> 60)
[2017-10-30] MEDS ORDERED: *HR* HYDROmorphone (PF) 1 MG/ML SYRINGE IVP ONE (21:25)
[2017-10-31] MEDS ORDERED: Pantoprazole 40 MG in 0.9 % Sodium Chloride Mini Bag 100 ML IVC SCH (01:45)
[2017-10-31] MEDS ORDERED: Naloxone 0.4 MG/ML INJ IVP PRN (03:04)
[2017-10-31] MEDS ORDERED: Ondansetron 4 MG/2 ML VIAL IVP PRN (03:04)
[2017-10-31] MEDS ORDERED: Acetaminophen 325 MG TABLET PO PRN (03:04)
--- NOTE | 2017-10-31 03:12 | Internal Med History&Physical ---
Date of Encounter: 10/31/17 Time of Encounter: 03:08 Assessment and Plan (1) GI bleed Current visit: Yes Status: Acute With melena. EGD last month only. Need to be reevaluated but we know that he has severe esophagitis and gastritis. He will be continued on IV Protonix drip and Carafate and gastroenterology is consulted. H&H to be checked every 6. Close monitoring. I wonder if instead of Pradaxa which does cause significant GI Bleed which should consider Eliquis or even coumadin. Qualifiers: GI bleed type/associated pathology: unspecified gastrointestinal hemorrhage type Qualified Code(s): K92.2 - Gastrointestinal hemorrhage, unspecified (2) Factor V deficiency Current visit: No Status: Chronic He has history of DVT and PE therefore he needs to be on anticoagulation and threshold has been Quite low despite recent GI bleed. (3) Ventricular mural thrombus Current visit: No Status: Acute Recent echocardiogram showed left ventricular thrombus (4) Cardiomyopathy Current visit: No Status: Chronic Recent echocardiogram showed EF of 36% we will be very cautious and hydration Qualifiers: Cardiomyopathy type: unspecified Qualified Code(s): I42.9 - Cardiomyopathy , unspecified Internal Medicine - H&P: HPI Chief complaint: GI bleed Admitted From: Home Plans for Post Hospital Care: Home History of present illness: Mr. Rooney is a 37 year old male known to me from previous admission. He has factor V deficiency with history of DVT and PE and therefore he is on Pradaxa. He is also noted to have left ventricular apical thrombus. For these 2 reasons he has tried to be On anticoagulation. He was recently admitted for lower GI bleed and an EGD showed severe esophagitis and gastritis. His anticoagulation was stopped for a few days and he was treated with IV Protonix and as he did not bleed his anticoagulation with Pradaxa was not started. He is returned with melena and abdominal pain. Hemoglobin is still satisfactory in the range of 13. No history of syncope, dizziness, chest pain shortness of breath nausea vomiting diarrhea dysuria urgency frequency hematuria hematochezia or hematemesis. Past Med Surg Social Fam HX - Past Medical History Medical history: DVT, hyperlipidemia, hypertension, myocardial infarction, pulmonary embolus, other Psychiatric history: anxiety, depression - Past Surgical History Surgical History: angioplasty/stent, splenectomy - Social History Smoking Status: Current every day smoker Smokeless Tobacco Status: No Alcohol use: rarely Drug use: marijuana - Family History Maternal Grandmother Hx Family Cardiac Disorders: No Hx Family Respiratory Disorders: No Hx Family Cancer: Yes (lymphomia) Hx Family GI Disorders: No Hx Family Endocrine Disorder: No Hx Family Neuromuscular Disorders: No Hx Family Neurologic Disorders: No Hx Family HEENT Disorders: No Hx Family Autoimmune Disorders: No Mother Family Member Ethnicity: Non- Living Status: Still Living Hx Family Cardiac Disorders: Yes (heart disease) Hx Family Respiratory Disorders: No Hx Family Cancer: No Hx Family GI Disorders: No Hx Family Endocrine Disorder: No Hx Family Neuromuscular Disorders: No Hx Family Neurologic Disorders: No Hx Family HEENT Disorders: No Hx Family Autoimmune Disorders: No Internal Medicine - H&P: Meds Citalopram Hydrobromide [Celexa] 40 mg PO BID 02/20/17 [History] Dabigatran [Pradaxa] 150 mg PO BID 02/25/17 [History] Atorvastatin [Lipitor] 40 mg PO HS #30 tablet 10/17/17 [Rx] Lisinopril [Zestril] 10 mg PO DAILY #30 tablet 10/17/17 [Rx] Metoprolol XL (24 HR) Succ [Toprol Xl] 12.5 mg PO DAILY #30 tab.er.24h 10/17/17 [Rx] Nicotine Patch [Nicoderm] 21 mg TD DAILY patch.td24 10/17/17 [Rx] Sucralfate [Carafate] 1 gm PO QIDAC #120 tablet 10/17/17 [Rx] Pantoprazole Sodium [Protonix] 40 mg PO DAILY 10/30/17 [History] 3 Allergy/AdvReac Type Severity Reaction Status Date / Time Penicillins Allergy Hives Verified 10/30/17 18:08 All Systems PM: A 10-system review of systems was performed and is negative for pertinent findings except as documented above in the HPI. - Constitutional Constitutional: no chills, no fever(s), no night sweats - EENT Eyes: no change in vision, no discharge, no pain, no photophobia Ears: no ear discharge, no ear pain, no tinnitus Nose, mouth and throat: no dysphagia, no nasal discharge, no neck pain, no sore throat - Cardiovascular Cardiovascular ROS IM: no chest pain, no diaphoresis, no dyspnea, no lightheadedness, no palpitations, no syncope - Respiratory Respiratory: no cough, no dyspnea, no wheezing, no excessive phlegm production - Gastrointestinal Gastrointestinal: no abdominal pain, no diarrhea, no hematemesis, no hematochezia, no melena, no nausea, no vomiting - Musculoskeletal Musculoskeletal ROS IM: no numbness, no tingling - Integumentary Integumentary IM: no rash, no unusual bruising - Neurological Neurological ROS: no confusion, no convulsions, no focal weakness, no numbness, no tingling, no tremor(s) - Hematologic/Lymphatic Hematologic/Lymphatic: no easy bruising - Constitutional Vitals: Temp Pulse Resp BP Pulse Ox 98.3 F 80 14 139/84 95 10/30/17 22:58 10/30/17 22:58 10/30/17 22:58 10/30/17 22:58 10/30/17 22:58 General appearance: Present: A&O X 3, answers questions appropriately - Head Head exam: Present: atraumatic, normocephalic - Eye Eye exam: Present: PERRL, conjuntiva pink, sclera anicteric Pupils: Present: PERRL - Neck Neck exam general surgery: Present: supple, trachea midline. Absent: lymphadenopathy - Respiratory Respiratory exam: Present: CTAB. Absent: accessory muscle use, rales, rhonchi, wheezes - Cardiovascular Cardiovascular exam: Present: RRR, +S1, +S2. Absent: diastolic murmur, gallop, rubs, systolic murmur - GI/Abdominal GI/Abdominal exam: Present: normal bowel sounds, soft, no peritoneal signs. Absent: distended, tenderness - Extremities Exam Extremities exam: Present: warm, radial pulses palpable and symmetrical. Absent : calf tenderness, cyanotic, pedal edema - Neurological Exam Neurological exam: Present: CN II-XII intact, oriented X3, no focal deficits. Absent: pronater drift, facial droop, speech deficit - Skin Skin exam: Present: dry, intact Internal Med - H&P Results - Labs CBC & Chem 7: 10/30/17 18:54 10/30/17 18:54
[2017-10-31] MEDS: Sucralfate 1 GM TABLET PO SCH ×5 (03:53→20:45)
[2017-10-31] MEDS: 0.9 % Sodium Chloride 1,000 ML IVC SCH ×2 (03:54→12:15)
[2017-10-31] MEDS: *HR* Morphine 2 MG/ML SYRINGE IVP PRN ×5 (04:03→20:46)
[2017-10-31] MEDS: Metoprolol XL (24 HR) Succ 25 MG TAB.ER.24H PO SCH (07:49)
[2017-10-31] MEDS: Nicotine 21 MG PATCH.TD24 TD SCH (07:50)
[2017-10-31 10:13] LABS: Basophils # 0.1 K/mcL (0.0-0.2); Basophils % 0.7 %; Eosinophils # 0.5 K/mcL (0.0-0.6); Eosinophils % 3.6 %; Hematocrit 39.9 % (37.5-50.1); Hemoglobin 13.2 g/dL (12.9-16.9); Immature Granulocytes % 0.3 % (0-4); Lymphocytes # 3.9 K/mcL (0.6-4.6); Lymphocytes % 29.6 %; Mean Corpuscular HGB Conc 33.1 g/dL (31.6-35.5); Mean Corpuscular Hemoglobin 29.5 pg (28.0-33.3); Mean Corpuscular Volume 89.3 fL (83.0-100.0); Mean Platelet Volume 8.5 fL (9.4-12.4); Monocytes # 1.1 K/mcL (0.0-1.3); Monocytes % 8.3 %; Neutrophils # 7.5 K/mcL (1.6-8.9); Platelet Count 258 K/mcL (140-400); Red Blood Count 4.47 M/mcL (4.19-5.50); Red Cell Distribution Width 14.2 % (11.5-14.5); Segmented Neutrophils % 57.5 %
--- NOTE | 2017-10-31 10:16 | Event Note ---
Date of Encounter: 10/31/17 Time of Encounter: 10:15 I have seen and examined the patient. He is here with melena. On Pradaxa with extensive clotting history due to a hypercoaguable state. He is hemodynamically stable and has been on protonix since admit. There is a consult to GI to see him though he did have both upper and lower scopes last stay. H/H stable. I have consulted with hematology this morning to sort out anticoagulation for the patient as I feel we can not take him off anticoags
[2017-10-31 10:33] LABS: BUN/Creatinine Ratio 9 (6-26); Blood Urea Nitrogen 7 mg/dL (8-26); Calcium 8.9 mg/dL (8.6-10.8); Carbon Dioxide 23 mEq/L (19-29); Chloride 107 mEq/L (98-109); Glucose 87 mg/dL (70-99); Osmolality,Calculated 289 (280-300); Potassium 4.4 mEq/L (3.5-4.5); Sodium 141 mEq/L (136-145); eGFR For African Americans > 60 (> 60); eGFR For Non-African Americans > 60 (> 60)
[2017-10-31] MEDS: Pantoprazole 80 MG in 0.9 % Sodium Chloride 250 ML IVC SCH (15:18)
--- NOTE | 2017-10-31 16:48 | Oncology Inp Consult Note ---
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 He follows Dr. Thee Mora at [facility]. He is heterozygous for MT HFR gene mutation and lupus anticoagulant positive. He also has a history of pulmonary embolism, DVT with blockage of the kidney blood supply branches, DVT in the common iliac artery. The patient has been on a variety of blood thinners including Arixtra, Xarelto, Lovenox, eliquis, and, is currently on Pradaxa 150mg BID. Last admitted to [facility] late September 2017 with Left ventricular thrombus and PE with acute diverticulitis. Last scopes 10/15/17. Colonoscopy no acute issues. History of diverticulitis. EGD showed severe gastritis and esophagitis with non bleeding ulcer and prepyloric inflammatory changes. No bleeding. Discharged on carafate and protonix. He had stress test with gated EF 36% but no reversible ischemia chest pain. Patient admitted again 10/30/17 with complaint of GI bleed, specifically melena and abdominal pain. Hgb stable above 13.0. CT of AP showed no acute process, but concerns of multiple varices within upper abdomen and small filling defect within left ventricular apex. Recommendation: Due to recent venticular thrombus and PE, keep him on Pradaxa until seen by surgery consult. He has Factor V deficiency, and it is risky to discontinue anticoagulation. Also, his Hgb is stable at 13.2. Dr Mora will see him inpatient, and add to above plan as needed. (2) Factor V Leiden Status: Chronic (3) Pulmonary embolism Status: Acute Qualifiers: Pulmonary embolism type: other Chronicity: chronic Acute cor pulmonale presence: without acute cor pulmonale Qualified Code(s): I27.82 - Chronic pulmonary embolism (4) Left ventricular thrombus Status: Acute (5) GI bleed Status: Acute Qualifiers: GI bleed type/associated pathology: unspecified gastrointestinal hemorrhage type Qualified Code(s): K92.2 - Gastrointestinal hemorrhage, unspecified - Data of Consult Patient: known to practice within the last 3 years Consult date: 10/31/17 Requesting Physician: Tory Camilo MD Primary Care Provider: Cosme Gould Jr, MD - Consult Narrative Reason for consult: hypercoagulable state on pradaxa History of present illness: Jax Rooney is a 37-year-old male with a history of portal vein thrombosis, mesenteric thrombosis which developed while he was on Coumadin. In May 2012 he was on Lovenox and then switched to Xarelto 20 mg each day per Dr. Thee Mora, whom he follows at [facility]. He is heterozygous for MT HFR gene mutation and lupus anticoagulant positive. He also has a history of pulmonary embolism in February 2012. At that time he was hospitalized at [facility]. Had another DVT with blockage of the kidney blood supply branches June 2014. At that time 02 was switched to Lovenox 100 mg subcutaneously twice a day which Dr. Mora changed to 80 mg subcutaneous twice a day. He had extensive bruising to the abdominal wall and his Lovenox was further reduced to 100 mg subcutaneously once a day. May 2015 he was in prison. But got released. He developed hematuria in June 2015. He had a cystoscopy by Dr. Coleman, apparently no lesion was found. THE 2014, he had a CT angiogram the chest and CT of the abdomen and pelvis through the emergency room. It showed a slight increase in the nonocclusive clot in the IVC just about the renal vein area. During this time he was on fondaparinux through at [facility]. CAT scan of the chest and pelvis performed in April 2015 showed a blood clot in the IVC but that is slightly grown. There was no pulmonary embolism. The patient was evaluated by Dr. pozo or infiltrate her was being considered in the future. He was seen in oncology on 08/30/2015 secondary to having left lower quadrant pain for 3 days with diarrhea. He was lost to our practice, as he moved to [facility]. At that time his primary care provider was writing prescriptions for L request. In February 2017 he moved back to the [facility] and had no primary care provider. He was seen in the emergency department the left AMA. He was found to have a DVT in the common iliac artery. Subsequent he returned and was admitted on a heparin drip. At that time he was given Pradaxa. The patient has been on a variety of blood thinners including Arixtra, Xarelto, Lovenox, eliquis and is currently on Pradaxa. Over the last several months in 2016, he had multiple complaints of GI bleeding. The patient did have a colonoscopy and upper endoscopy Dr. Segundo Rouse. Done on 05/16/2017. The endoscopy indicated erosion of the stomach, erosive esophagitis, and was positive for Heliobacter. He is currently taking amoxicillin, Levaquin and doxycycline. The colonoscopy indicated diverticulosis , polypectomy. Last admitted to [facility] late September 2017 with Left ventricular thrombus and PE with acute diverticulitis. Last scopes 10/15/17. Colonoscopy no acute issues. History of diverticulitis. EGD showed severe gastritis and esophagitis with non bleeding ulcer and prepyloric inflammatory changes. No bleeding. Discharged on carafate and protonix. He had stress test with gated EF 36% but no reversible ischemia chest pain. Patient admitted again 10/30/17 with complaint of GI bleed, specifically melena and abdominal pain. Hgb stable above 13.0. CT of AP showed no acute process, but concerns of multiple varices within upper abdomen and small filling defect within left ventricular apex. Hematology consulted for recommendations Past Med Surg Social Fam HX - Past Medical History Medical history: DVT, hyperlipidemia, hypertension, myocardial infarction, pulmonary embolus, other Psychiatric history: anxiety, depression - Past Surgical History Surgical History: angioplasty/stent, splenectomy - Social History Smoking Status: Current every day smoker Smokeless Tobacco Status: No Alcohol use: rarely Drug use: marijuana - Family History Maternal Grandmother Hx Family Cardiac Disorders: No Hx Family Respiratory Disorders: No Hx Family Cancer: Yes (lymphomia) Hx Family GI Disorders: No Hx Family Endocrine Disorder: No Hx Family Neuromuscular Disorders: No Hx Family Neurologic Disorders: No Hx Family HEENT Disorders: No Hx Family Autoimmune Disorders: No Mother Family Member Ethnicity: Non- Living Status: Still Living Hx Family Cardiac Disorders: Yes (heart disease) Hx Family Respiratory Disorders: No Hx Family Cancer: No Hx Family GI Disorders: No Hx Family Endocrine Disorder: No Hx Family Neuromuscular Disorders: No Hx Family Neurologic Disorders: No Hx Family HEENT Disorders: No Hx Family Autoimmune Disorders: No Medications and Allergies Citalopram Hydrobromide [Celexa] 40 mg PO BID 02/20/17 [History] Dabigatran [Pradaxa] 150 mg PO BID 02/25/17 [History] Atorvastatin [Lipitor] 40 mg PO HS #30 tablet 10/17/17 [Rx] Lisinopril [Zestril] 10 mg PO DAILY #30 tablet 10/17/17 [Rx] Metoprolol XL (24 HR) Succ [Toprol Xl] 12.5 mg PO DAILY #30 tab.er.24h 10/17/17 [Rx] Nicotine Patch [Nicoderm] 21 mg TD DAILY patch.td24 10/17/17 [Rx] Sucralfate [Carafate] 1 gm PO QIDAC #120 tablet 10/17/17 [Rx] Pantoprazole Sodium [Protonix] 40 mg PO DAILY 10/30/17 [History] 3 Allergy/AdvReac Type Severity Reaction Status Date / Time Penicillins Allergy Hives Verified 10/30/17 18:08 Gastrointestinal: Present: abdominal pain, belching, melena Oncology - Exam - Constitutional Vitals: Temp Pulse Resp BP Pulse Ox 98.7 F 81 16 137/91 98 10/31/17 15:23 10/31/17 15:23 10/31/17 15:23 10/31/17 15:23 10/31/17 15:23 General appearance: cooperative, no acute distress - Head Head exam: Present: atraumatic, normal inspection - Eye Eye exam: Present: normal appearance, PERRL - ENT ENT exam: Present: mucous membranes moist - Neck Neck exam: Present: full ROM, normal inspection - Respiratory Respiratory exam: Present: CTAB - Cardiovascular Cardiovascular exam: Present: RRR, +S1, +S2 - GI/Abdominal GI/Abdominal exam: Present: guarding (epigastric), normal bowel sounds, soft - Extremities Exam Extremities exam: Present: full ROM, normal inspection - Neurological Exam Neurological exam: Present: alert, oriented X3, no focal deficits - Psychiatric Psychiatric exam: Present: normal affect, normal mood - Skin Skin exam: Present: dry, intact, warm Oncology - Results Labs: Short CBC 10/31/17 Range/Units 10:01 WBC 13.1 H (4.3-11.1) K/mcL Hgb 13.2 (12.9-16.9) g/dL Hct 39.9 (37.5-50.1) % Plt Count 258 (140-400) K/mcL Neutrophils # 7.5 (1.6-8.9) K/mcL [facility] 10/31/17 10:01 Sodium 141 Potassium 4.4 Chloride 107 Carbon Dioxide 23 BUN 7 L Creatinine 0.82 Glucose 87 Calcium 8.9 Consult Discharge Plan - Plan Referrals: Cosme Gould Jr, MD [Primary Care Provider] - <Thee Mora - Last Filed: 10/31/17 18:27> Date of Encounter: 10/31/17 - Data of Consult Requesting Physician: Tory Camilo MD Primary Care Provider: Cosme Gould Jr, MD - Consult Narrative History of present illness: Mr. Rooney is a 37 year old male Oncology - Exam - Constitutional Vitals: Temp Pulse Resp BP Pulse Ox 98.7 F 81 16 137/91 98 10/31/17 15:23 10/31/17 15:23 10/31/17 15:23 10/31/17 15:23 10/31/17 15:23 Oncology - Results Labs: Short CBC 10/31/17 Range/Units 10:01 WBC 13.1 H (4.3-11.1) K/mcL Hgb 13.2 (12.9-16.9) g/dL Hct 39.9 (37.5-50.1) % Plt Count 258 (140-400) K/mcL Neutrophils # 7.5 (1.6-8.9) K/mcL [facility] 10/31/17 10:01 Sodium 141 Potassium 4.4 Chloride 107 Carbon Dioxide 23 BUN 7 L Creatinine 0.82 Glucose 87 Calcium 8.9 - Attending Attestation History of GI bleed/melena. EGD colonoscopy 10/15/2017 showed gastritis without bleeding and GERD. He is on Protonix and Carafate. Colonoscopy negative. 2. History of DVTs in the past as mentioned 3. Possible left ventricular apex thrombus with hypokinesis and low ejection fraction around 36%. At this time will recommend continuing Pradaxa for above problems. Even if he has IVC filter he needs anticoagulation because of cardiac issues His hemoglobin is stable at 13.6. We will check d-dimer.
[2017-11-01] MEDS: *HR* Morphine 2 MG/ML SYRINGE IVP PRN ×5 (02:54→22:22)
[2017-11-01] MEDS: Pantoprazole 80 MG in 0.9 % Sodium Chloride 250 ML IVC SCH (06:09)
[2017-11-01 07:22] LABS: BUN/Creatinine Ratio 15 (6-26); Blood Urea Nitrogen 14 mg/dL (8-26); Calcium 8.6 mg/dL (8.6-10.8); Carbon Dioxide 24 mEq/L (19-29); Chloride 110 mEq/L (98-109); Glucose 102 mg/dL (70-99); Osmolality,Calculated 295 (280-300); Potassium 4.3 mEq/L (3.5-4.5); Sodium 142 mEq/L (136-145); eGFR For African Americans > 60 (> 60); eGFR For Non-African Americans > 60 (> 60)
[2017-11-01 08:08] LABS: Basophils # 0.1 K/mcL (0.0-0.2); Basophils % 0.7 %; Eosinophils # 0.5 K/mcL (0.0-0.6); Hematocrit 39.2 % (37.5-50.1); Hemoglobin 12.9 g/dL (12.9-16.9); Immature Granulocytes % 0.2 % (0-4); Lymphocytes # 4.6 K/mcL (0.6-4.6); Lymphocytes % 30.1 %; Mean Corpuscular HGB Conc 32.9 g/dL (31.6-35.5); Mean Corpuscular Hemoglobin 29.5 pg (28.0-33.3); Mean Corpuscular Volume 89.7 fL (83.0-100.0); Mean Platelet Volume 9.1 fL (9.4-12.4); Monocytes # 1.2 K/mcL (0.0-1.3); Monocytes % 7.9 %; Neutrophils # 8.9 K/mcL (1.6-8.9); Platelet Count 289 K/mcL (140-400); Red Blood Count 4.37 M/mcL (4.19-5.50); Red Cell Distribution Width 14.2 % (11.5-14.5); Segmented Neutrophils % 58.1 %
[2017-11-01] MEDS: Sucralfate 1 GM TABLET PO SCH ×4 (08:09→22:22)
[2017-11-01] MEDS: Metoprolol XL (24 HR) Succ 25 MG TAB.ER.24H PO SCH (08:09)
[2017-11-01] MEDS: Nicotine 21 MG PATCH.TD24 TD SCH (08:10)
--- NOTE | 2017-11-01 09:38 | General Surgery Consult Note ---
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 Unlikely lower GI etiology given normal colonoscopy and CT scan. Possibly due to small bowel - Recommend a trial of clear liquid diet - May benefit from a outpatient gastroenterology small bowel workup for bleed. At this time we do not feel the need for further scopes - At this time, anticoagulation not contraindicated and the benefits outweigh the risks. Would recommend resuming pradaxa Qualifiers: Abdominal location: left lower quadrant Qualified Code(s): R10.32 - Left lower quadrant pain (2) GI bleed Current Visit: Yes Status: Acute Management as above Qualifiers: GI bleed type/associated pathology: unspecified gastrointestinal hemorrhage type Qualified Code(s): K92.2 - Gastrointestinal hemorrhage, unspecified (3) Hypercoagulable state Current Visit: Yes Status: Acute Recommend continuing Pradaxa as above History of Present Illness Consult date: 10/30/17 Reason for consult: other (Rectal bleed) Requesting physician: Thong Yeung History of present illness: Mr. Prado is a 37-year-old male with a past medical history of MT HFR gene, lupus anticoagulant, factor V deficiency, diverticulosis currently on for pradaxa for recurrent blood clots including pulmonary embolism, renal embolism, DVTs. He is recently admitted in September 2017 for similar symptoms of rectal bleeding. At that time he underwent colonoscopy and EGD which showed diffuse severe gastritis without obvious evidence of bleed on 10/14/17. Colonoscopy showed large amount of stool otherwise within normal limits. He states he has been experiencing abdominal pain, dark red gross blood, chills 3 days. Today reports 2 bowel movements without evidence of bleed. He is still experiencing pain located in the left lower quadrant and left upper quadrant. He describes it as sharp in nature and intermittent. Dates he has had some nausea as well as vomiting prior to admission but states there was no blood in the vomitus. He denies any further symptoms of shortness breath, fevers, chills, recent travel, sick contacts. Past Med Surg Social Fam HX - Past Medical History Medical history: DVT, hyperlipidemia, hypertension, myocardial infarction, pulmonary embolus, other Psychiatric history: anxiety, depression - Past Surgical History Surgical History: angioplasty/stent, splenectomy - Social History Smoking Status: Current every day smoker Smokeless Tobacco Status: No Alcohol use: rarely Drug use: marijuana - Family History Maternal Grandmother Hx Family Cardiac Disorders: No Hx Family Respiratory Disorders: No Hx Family Cancer: Yes (lymphomia) Hx Family GI Disorders: No Hx Family Endocrine Disorder: No Hx Family Neuromuscular Disorders: No Hx Family Neurologic Disorders: No Hx Family HEENT Disorders: No Hx Family Autoimmune Disorders: No Mother Family Member Ethnicity: Non- Living Status: Still Living Hx Family Cardiac Disorders: Yes (heart disease) Hx Family Respiratory Disorders: No Hx Family Cancer: No Hx Family GI Disorders: No Hx Family Endocrine Disorder: No Hx Family Neuromuscular Disorders: No Hx Family Neurologic Disorders: No Hx Family HEENT Disorders: No Hx Family Autoimmune Disorders: No Medications and Allergies Citalopram Hydrobromide [Celexa] 40 mg PO BID 02/20/17 [History] Dabigatran [Pradaxa] 150 mg PO BID 02/25/17 [History] Atorvastatin [Lipitor] 40 mg PO HS #30 tablet 10/17/17 [Rx] Lisinopril [Zestril] 10 mg PO DAILY #30 tablet 10/17/17 [Rx] Metoprolol XL (24 HR) Succ [Toprol Xl] 12.5 mg PO DAILY #30 tab.er.24h 10/17/17 [Rx] Nicotine Patch [Nicoderm] 21 mg TD DAILY patch.td24 10/17/17 [Rx] Sucralfate [Carafate] 1 gm PO QIDAC #120 tablet 10/17/17 [Rx] Pantoprazole Sodium [Protonix] 40 mg PO DAILY 10/30/17 [History] 3 Allergy/AdvReac Type Severity Reaction Status Date / Time Penicillins Allergy Hives Verified 10/30/17 18:08 Review of Systems All systems PM: A 10-system review of systems was performed and is negative for pertinent findings except as documented above in the HPI. - Constitutional as per HPI, no chills, no fatigue, no lethargy - Cardiovascular as per HPI, no chest pain - Respiratory as per HPI, no dyspnea, no dyspnea on exertion - Gastrointestinal as per HPI, abdominal pain, hematochezia, nausea, vomiting, no coffee ground emesis, no constipation, no hematemesis General Surgery Exam Initial Vital Signs Temp Pulse Resp BP Pulse Ox 99 F 93 18 140/91 98 10/30/17 18:04 10/30/17 18:04 10/30/17 18:04 10/30/17 18:04 10/30/17 18:04 - General physical appearance well developed, well nourished, no distress - Respiratory normal expansion, normal respiratory effort, clear to auscultation - Cardiovascular Cardiovascular exam: Present: RRR, no murmurs/rubs/gallops - Abdomen Abdomen general surgery: Present: bowel sounds present, soft, tender. Absent: tympanic, distended, masses Abdominal Tenderness: Present: LUQ, LLQ, diffusely Exam Initial Vital Signs Temp Pulse Resp BP Pulse Ox 99 F 93 18 140/91 98 10/30/17 18:04 10/30/17 18:04 10/30/17 18:04 10/30/17 18:04 10/30/17 18:04 Results - Labs 11/01/17 06:51 11/01/17 06:51 Abnormal lab results WBC 15.4 K/mcL (4.3-11.1) H 11/01/17 06:51 MPV 9.1 fL (9.4-12.4) L 11/01/17 06:51 PT 12.3 Seconds (9.4-12.1) H 10/30/17 18:54 D-Dimer 652 ng/mLFEU (0-500) H 10/31/17 18:33 Chloride 110 mEq/L (98-109) H 11/01/17 06:51 Glucose 102 mg/dL (70-99) H 11/01/17 06:51 POC Glucose 96 (58-89) H 11/01/17 05:24 Globulin 4.2 g/dL (2.4-3.5) H 10/30/17 18:54 Albumin/Globulin Ratio 0.9 (1.1-2.2) L 10/30/17 18:54 Stool Occult Blood Positive (Negative) A 10/30/17 19:13 Diabetes panel 10/31/17 11/01/17 Range/Units 10:01 06:51 Sodium 141 142 (136-145) mEq/L Potassium 4.4 4.3 (3.5-4.5) mEq/L Chloride 107 110 H (98-109) mEq/L Carbon Dioxide 23 24 (19-29) mEq/L BUN 7 L 14 (8-26) mg/dL Creatinine 0.82 0.95 (0.72-1.25) mg/dL Glucose 87 102 H (70-99) mg/dL Calcium 8.9 8.6 (8.6-10.8) mg/dL Calcium panel 10/31/17 11/01/17 Range/Units 10:01 06:51 Calcium 8.9 8.6 (8.6-10.8) mg/dL Pituitary panel 10/31/17 11/01/17 Range/Units 10:01 06:51 Sodium 141 142 (136-145) mEq/L Potassium 4.4 4.3 (3.5-4.5) mEq/L Chloride 107 110 H (98-109) mEq/L Carbon Dioxide 23 24 (19-29) mEq/L BUN 7 L 14 (8-26) mg/dL Creatinine 0.82 0.95 (0.72-1.25) mg/dL Glucose 87 102 H (70-99) mg/dL Calcium 8.9 8.6 (8.6-10.8) mg/dL Adrenal panel 10/31/17 11/01/17 Range/Units 10:01 06:51 Sodium 141 142 (136-145) mEq/L Potassium 4.4 4.3 (3.5-4.5) mEq/L Chloride 107 110 H (98-109) mEq/L Carbon Dioxide 23 24 (19-29) mEq/L BUN 7 L 14 (8-26) mg/dL Creatinine 0.82 0.95 (0.72-1.25) mg/dL Glucose 87 102 H (70-99) mg/dL Calcium 8.9 8.6 (8.6-10.8) mg/dL All other labs normal. Consult Discharge Plan - Plan Referrals: Cosme Gould Jr, MD [Primary Care Provider] - <Jeff Kate - Last Filed: 11/03/17 07:27> Date of Encounter: 11/01/17 Review of Systems All systems PM: A 10-system review of systems was performed and is negative for pertinent findings except as documented above in the HPI. General Surgery Exam Initial Vital Signs Temp Pulse Resp BP Pulse Ox 99 F 93 18 140/91 98 10/30/17 18:04 10/30/17 18:04 10/30/17 18:04 10/30/17 18:04 10/30/17 18:04 Exam Initial Vital Signs Temp Pulse Resp BP Pulse Ox 99 F 93 18 140/91 98 10/30/17 18:04 10/30/17 18:04 10/30/17 18:04 10/30/17 18:04 10/30/17 18:04 Results - Labs 11/02/17 08:11 11/03/17 05:38 Abnormal lab results MPV 8.8 fL (9.4-12.4) L 11/02/17 08:11 PT 12.3 Seconds (9.4-12.1) H 10/30/17 18:54 D-Dimer 652 ng/mLFEU (0-500) H 10/31/17 18:33 POC Glucose 135 (58-89) H 11/01/17 12:30 Globulin 4.2 g/dL (2.4-3.5) H 10/30/17 18:54 Albumin/Globulin Ratio 0.9 (1.1-2.2) L 10/30/17 18:54 Stool Occult Blood Positive (Negative) A 10/30/17 19:13 Diabetes panel 11/03/17 Range/Units 05:38 Sodium 141 (136-145) mEq/L Potassium 4.5 (3.5-4.5) mEq/L Chloride 105 (98-109) mEq/L Carbon Dioxide 25 (19-29) mEq/L BUN 11 (8-26) mg/dL Creatinine 1.04 (0.72-1.25) mg/dL Glucose 92 (70-99) mg/dL Calcium 9.3 (8.6-10.8) mg/dL Calcium panel 11/03/17 Range/Units 05:38 Calcium 9.3 (8.6-10.8) mg/dL Pituitary panel 11/03/17 Range/Units 05:38 Sodium 141 (136-145) mEq/L Potassium 4.5 (3.5-4.5) mEq/L Chloride 105 (98-109) mEq/L Carbon Dioxide 25 (19-29) mEq/L BUN 11 (8-26) mg/dL Creatinine 1.04 (0.72-1.25) mg/dL Glucose 92 (70-99) mg/dL Calcium 9.3 (8.6-10.8) mg/dL Adrenal panel 11/03/17 Range/Units 05:38 Sodium 141 (136-145) mEq/L Potassium 4.5 (3.5-4.5) mEq/L Chloride 105 (98-109) mEq/L Carbon Dioxide 25 (19-29) mEq/L BUN 11 (8-26) mg/dL Creatinine 1.04 (0.72-1.25) mg/dL Glucose 92 (70-99) mg/dL Calcium 9.3 (8.6-10.8) mg/dL All other labs normal. - Attending Attestation I examined this patient and my medical decision-making was reviewed with the Resident Physician. I agree with the documented findings, disposition and treatment plan as described except to the extent set forth below. I reviewed the above assessment and evaluation with the resident above. Noted melanotic-like stool but normal hemoglobin. Patient admits to some abdominal discomfort but denies any nausea or vomiting. His abdominal discomfort is mainly in epigastric region. He had an EGD and colonoscopy recently which showed a normal colon with stool present and evidence of esophagitis with no evidence of a active bleeding. There was evidence of a superficial nonbleeding ulcer. Since his hemoglobin is stable and his hemodynamics are stable I think it would be appropriate to continue to watch and observe and allow for clears and to allow him to resume his Pradaxa.
[2017-11-01 10:10] LABS: Bilirubin,Urine Negative (Negative); Blood,Urine Negative (Negative); Clarity,Urine Clear (Clear); Color,Urine Yellow (Yellow); Glucose,Urine (UA) Normal (Normal); Ketones,Urine Negative (Negative); Leukocyte Esterase,Urine Negative (Negative); Nitrite,Urine Negative (Negative); PH,Urine 7.5 pH Units (5.0-8.0); Protein,Urine Negative (Neg-Trace); Specific Gravity,Urine 1.017 (1.010-1.025); Urobilinogen,Urine Normal (Normal)
--- NOTE | 2017-11-01 11:45 | Internal Med Progress Note ---
Date of Encounter: 11/01/17 Time of Encounter: 08:20 - Assessment and plan (1) GI bleed Current Visit: No Status: Acute Assessment and plan: This seems to have stopped. H/H remains stable. I spoke to Dr. Kate who recommends starting the patient on a slow diet. I will do that. He is ok with restarting anticoag as a trial. No need to repeat scopes. Source could be small bowel too. Will switch to oral PPI. trend H/H while on pradaxa. Qualifiers: GI bleed type/associated pathology: unspecified gastrointestinal hemorrhage type Qualified Code(s): K92.2 - Gastrointestinal hemorrhage, unspecified (2) Left ventricular thrombus Current Visit: No Status: Acute Assessment and plan: Restarted pradaxa (3) CAD (coronary artery disease) Current Visit: No Status: Chronic Assessment and plan: c/w statin/BB. Not on ASA due to risk of bleeding while on anticoag with pradaxa Qualifiers: Coronary Disease-Associated Artery/Lesion type: [place] artery [place] vs. transplanted heart: [place] heart Associated angina: without angina Qualified Code(s): I25.10 - Atherosclerotic heart disease of [place] coronary artery without angina pectoris (4) Hypercoagulable state Current Visit: Yes Status: Acute Assessment and plan: As above. Ok to resume pradaxa. Appreciate hematology's input. (5) DVT prophylaxis Current Visit: Yes Status: Acute Assessment and plan: As above. Pradaxa restarted. High risk for clotting - Subjective Interval history: No acute events. He feels well. Had no bloody stools since yesterday at noon he says. Had one around noon time yesterday that looked dark red. H/H remains stable - Constitutional Vitals: Temp Pulse Resp BP Pulse Ox 98.4 F 83 18 135/53 97 11/01/17 07:01 11/01/17 07:01 11/01/17 07:01 11/01/17 07:01 11/01/17 07:01 General appearance: Present: A&O X 3, answers questions appropriately Exam: GEN: NAD CVS: RRR. S1, S2, No m/r/g RESP: CTAB ABD: Soft, NT, ND, +BS EXT: No edema. 2+ DP, No rashes NEURO: Nonfocal Internal Medicine: Result - Labs CBC & Chem 7: 11/01/17 06:51 11/01/17 06:51 Labs: Short CBC 11/01/17 Range/Units 06:51 WBC 15.4 H (4.3-11.1) K/mcL Hgb 12.9 (12.9-16.9) g/dL Hct 39.2 (37.5-50.1) % Plt Count 289 (140-400) K/mcL Neutrophils # 8.9 (1.6-8.9) K/mcL BMP 11/01/17 06:51 Sodium 142 Potassium 4.3 Chloride 110 H Carbon Dioxide 24 BUN 14 Creatinine 0.95 Glucose 102 H Calcium 8.6 Urine 11/01/17 Range/Units 09:43 Urine Color Yellow (Yellow) Urine Clarity Clear (Clear) Urine pH 7.5 (5.0-8.0) pH Units Ur Specific [place] 1.017 (1.010-1.025) Urine Protein Negative (Neg-Trace) mg/dL Urine Glucose (UA) Normal (Normal) mg/dL - ABG Interpretation ABG results: PT/INR, D-dimer PT 12.3 Seconds (9.4-12.1) H 10/30/17 18:54 D-Dimer 652 ng/mLFEU (0-500) H 10/31/17 18:33 - VTE Documentation of Mechanical Device: Graduated compression elastic hosiery Consult Discharge Plan - Plan Referrals: Cosme Gould Jr, MD [Primary Care Provider] -
[2017-11-01] MEDS: *HR* Dabigatran 150 MG CAPSULE PO SCH ×2 (13:42→22:22)
--- NOTE | 2017-11-01 13:50 | Electrocardiograph Report ---
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
[2017-11-02] MEDS: *HR* Morphine 2 MG/ML SYRINGE IVP PRN ×2 (02:21→08:14)
[2017-11-02 04:28] LABS: BUN/Creatinine Ratio 16 (6-26); Blood Urea Nitrogen 16 mg/dL (8-26); Calcium 9.3 mg/dL (8.6-10.8); Carbon Dioxide 27 mEq/L (19-29); Chloride 107 mEq/L (98-109); Glucose 101 mg/dL (70-99); Osmolality,Calculated 293 (280-300); Sodium 141 mEq/L (136-145); eGFR For African Americans > 60 (> 60); eGFR For Non-African Americans > 60 (> 60)
[2017-11-02 04:35] LABS: Potassium 4.2 mEq/L (3.5-4.5)
[2017-11-02 04:37] LABS: Basophils # 0.1 K/mcL (0.0-0.2); Basophils % 0.7 %; Eosinophils # 0.4 K/mcL (0.0-0.6); Eosinophils % 3.2 %; Hematocrit 39.4 % (37.5-50.1); Hemoglobin 12.8 g/dL (12.9-16.9); Immature Granulocytes % 0.2 % (0-4); Lymphocytes % 45.2 %; Mean Corpuscular HGB Conc 32.5 g/dL (31.6-35.5); Mean Corpuscular Hemoglobin 28.9 pg (28.0-33.3); Mean Corpuscular Volume 88.9 fL (83.0-100.0); Mean Platelet Volume 9.1 fL (9.4-12.4); Monocytes # 1.2 K/mcL (0.0-1.3); Monocytes % 8.6 %; Neutrophils # 5.6 K/mcL (1.6-8.9); Platelet Count 263 K/mcL (140-400); Red Blood Count 4.43 M/mcL (4.19-5.50); Red Cell Distribution Width 13.9 % (11.5-14.5); Segmented Neutrophils % 42.1 %
[2017-11-02] MEDS: Sucralfate 1 GM TABLET PO SCH ×4 (08:12→20:48)
[2017-11-02] MEDS: Metoprolol XL (24 HR) Succ 25 MG TAB.ER.24H PO SCH (08:12)
[2017-11-02] MEDS: Nicotine 21 MG PATCH.TD24 TD SCH (08:13)
[2017-11-02] MEDS: *HR* Dabigatran 150 MG CAPSULE PO SCH ×2 (08:13→20:49)
[2017-11-02 08:36] LABS: Basophils # 0.1 K/mcL (0.0-0.2); Basophils % 0.9 %; Eosinophils # 0.4 K/mcL (0.0-0.6); Eosinophils % 3.5 %; Hematocrit 43.3 % (37.5-50.1); Immature Granulocytes % 0.2 % (0-4); Lymphocytes % 37.5 %; Mean Corpuscular HGB Conc 33.3 g/dL (31.6-35.5); Mean Corpuscular Hemoglobin 29.4 pg (28.0-33.3); Mean Corpuscular Volume 88.5 fL (83.0-100.0); Mean Platelet Volume 8.8 fL (9.4-12.4); Monocytes # 0.9 K/mcL (0.0-1.3); Monocytes % 8.8 %; Neutrophils # 5.2 K/mcL (1.6-8.9); Platelet Count 282 K/mcL (140-400); Red Blood Count 4.89 M/mcL (4.19-5.50); Red Cell Distribution Width 14.1 % (11.5-14.5); Segmented Neutrophils % 49.1 %
[2017-11-02 08:38] LABS: Hemoglobin 14.4 g/dL (12.9-16.9)
--- NOTE | 2017-11-02 10:30 | General Surgery Progress Note ---
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 Tolerating clears without problem. Will advance to softs. - Unlikely upper GI etiology given no blood in the vomit and lack of evidence on EGD. Unlikely lower GI etiology given normal colonoscopy and CT scan. Possibly due to small bowel - At this time, anticoagulation not contraindicated and the benefits outweigh the risks. Would recommend resuming pradaxa - May benefit from a outpatient gastroenterology small bowel workup for bleed. At this time we do not feel the need for further scopes - Will follow from a distance. Qualifiers: Abdominal location: left lower quadrant Qualified Code(s): R10.32 - Left lower quadrant pain (2) GI bleed Current Visit: Yes Status: Acute Management as above Qualifiers: GI bleed type/associated pathology: unspecified gastrointestinal hemorrhage type Qualified Code(s): K92.2 - Gastrointestinal hemorrhage, unspecified (3) Hypercoagulable state Current Visit: Yes Status: Acute Recommend continuing Pradaxa as above Subjective Patient reports: no new complaints, still having pain, flatus, bowel movement Narrative: Patient was seen and examined at bedside this morning. He states that he is continuing to have pain in his left lower quadrant and left upper quadrant. It is about the same as yesterday. He does state that he has experienced no nausea or vomiting and has seen no blood in his bowel movements. He has had a total of 2 bowel movements which she states are normal for him in the last 24 hours. He has no further complaints. Objective Vital Signs - Last 8 Hours Temp Pulse Resp BP Pulse Ox 11/02/17 08:17 97 11/02/17 08:06 98.0 F 78 18 118/78 97 11/02/17 04:42 98.2 F 73 16 106/63 97 Intake and Output 11/01/17 11/02/17 11/02/17 23:59 07:59 15:59 Intake Total 120 / 120 480 / 480 Output Total 500 / 500 750 / 750 Balance -380 / -380 -270 / -270 Intake: Oral 120 / 120 480 / 480 Output: Urine 500 / 500 750 / 750 Other: Meal npo Breakfast - General physical appearance well developed, well nourished, no distress - Respiratory normal expansion, normal respiratory effort, clear to auscultation - Cardiovascular Cardiovascular exam: Present: RRR, no murmurs/rubs/gallops - Abdomen Abdomen: Present: bowel sounds present, soft, tender Abdominal Tenderness: LUQ, LLQ - Labs 11/02/17 08:11 11/02/17 03:43 Diabetes panel 11/02/17 Range/Units 03:43 Sodium 141 (136-145) mEq/L Potassium 4.2 (3.5-4.5) mEq/L Chloride 107 (98-109) mEq/L Carbon Dioxide 27 (19-29) mEq/L BUN 16 (8-26) mg/dL Creatinine 1.01 (0.72-1.25) mg/dL Glucose 101 H (70-99) mg/dL Calcium 9.3 (8.6-10.8) mg/dL Calcium panel 11/02/17 Range/Units 03:43 Calcium 9.3 (8.6-10.8) mg/dL Pituitary panel 11/02/17 Range/Units 03:43 Sodium 141 (136-145) mEq/L Potassium 4.2 (3.5-4.5) mEq/L Chloride 107 (98-109) mEq/L Carbon Dioxide 27 (19-29) mEq/L BUN 16 (8-26) mg/dL Creatinine 1.01 (0.72-1.25) mg/dL Glucose 101 H (70-99) mg/dL Calcium 9.3 (8.6-10.8) mg/dL Adrenal panel 11/02/17 Range/Units 03:43 Sodium 141 (136-145) mEq/L Potassium 4.2 (3.5-4.5) mEq/L Chloride 107 (98-109) mEq/L Carbon Dioxide 27 (19-29) mEq/L BUN 16 (8-26) mg/dL Creatinine 1.01 (0.72-1.25) mg/dL Glucose 101 H (70-99) mg/dL Calcium 9.3 (8.6-10.8) mg/dL - VTE Documentation of Mechanical Device: Intermittent pneumatic compression device Consult Discharge Plan - Plan Referrals: Cosme Gould Jr, MD [Primary Care Provider] - <Jeff Kate Chin - Last Filed: 11/03/17 07:28> Date of Encounter: 11/02/17 Objective Vital Signs - Last 8 Hours Temp Pulse Resp BP Pulse Ox 11/03/17 06:43 98.0 F 66 16 103/64 96 11/03/17 03:10 97.7 F 74 18 111/73 97 11/03/17 00:20 98.0 F 72 18 112/71 96 Intake and Output 11/02/17 11/02/17 11/03/17 15:59 23:59 07:59 Intake Total 480 / 480 360 / 360 Output Total 750 / 750 450 / 450 400 / 400 Balance -270 / -270 -90 / -90 -400 / -400 Intake: Oral 480 / 480 360 / 360 Output: Urine 750 / 750 450 / 450 400 / 400 Other: Meal Breakfast Dinner Percent of Meal Consumed 100% Weight 94.376 kg Patient Weight 11/03/17 23:59 Weight 94.376 kg - Labs 11/02/17 08:11 11/03/17 05:38 Diabetes panel 11/03/17 Range/Units 05:38 Sodium 141 (136-145) mEq/L Potassium 4.5 (3.5-4.5) mEq/L Chloride 105 (98-109) mEq/L Carbon Dioxide 25 (19-29) mEq/L BUN 11 (8-26) mg/dL Creatinine 1.04 (0.72-1.25) mg/dL Glucose 92 (70-99) mg/dL Calcium 9.3 (8.6-10.8) mg/dL Calcium panel 11/03/17 Range/Units 05:38 Calcium 9.3 (8.6-10.8) mg/dL Pituitary panel 11/03/17 Range/Units 05:38 Sodium 141 (136-145) mEq/L Potassium 4.5 (3.5-4.5) mEq/L Chloride 105 (98-109) mEq/L Carbon Dioxide 25 (19-29) mEq/L BUN 11 (8-26) mg/dL Creatinine 1.04 (0.72-1.25) mg/dL Glucose 92 (70-99) mg/dL Calcium 9.3 (8.6-10.8) mg/dL Adrenal panel 11/03/17 Range/Units 05:38 Sodium 141 (136-145) mEq/L Potassium 4.5 (3.5-4.5) mEq/L Chloride 105 (98-109) mEq/L Carbon Dioxide 25 (19-29) mEq/L BUN 11 (8-26) mg/dL Creatinine 1.04 (0.72-1.25) mg/dL Glucose 92 (70-99) mg/dL Calcium 9.3 (8.6-10.8) mg/dL - Attending Attestation I examined this patient and my medical decision-making was reviewed with the Resident Physician. I agree with the documented findings, disposition and treatment plan as described except to the extent set forth below. I reviewed the assessment and evaluation as mentioned above. Patient with mild epigastric abdominal pain but no nausea or vomiting. No evidence of rectal bleeding. Will change diet to soft diet to see how he tolerates. Follow CBC to ensure stability. Will follow from a distance.
--- NOTE | 2017-11-02 10:55 | Internal Med Progress Note ---
Date of Encounter: 11/02/17 Time of Encounter: 08:00 - Assessment and plan (1) GI bleed Current Visit: Yes Status: Acute Assessment and plan: Seen by surgery. I appreciate their help. The patient has been started on clears. I have advanced his diet to full liquid diet. He is complaining of abdominal pain this morning for which I will check a CT abdomen and pelvis. He has been resumed on his pradaxa and he does not seem to be showing any signs of bleeding. His hemoglobin has been stable. We will continue him on a PPI. Qualifiers: GI bleed type/associated pathology: unspecified gastrointestinal hemorrhage type Qualified Code(s): K92.2 - Gastrointestinal hemorrhage, unspecified (2) Left ventricular thrombus Current Visit: No Status: Acute Assessment and plan: Restarted pradaxa (3) CAD (coronary artery disease) Current Visit: No Status: Chronic Assessment and plan: c/w statin/BB. Not on ASA due to risk of bleeding while on anticoag with pradaxa Qualifiers: Coronary Disease-Associated Artery/Lesion type: [place] artery [place] vs. transplanted heart: [place] heart Associated angina: without angina Qualified Code(s): I25.10 - Atherosclerotic heart disease of [place] coronary artery without angina pectoris (4) Hypercoagulable state Current Visit: Yes Status: Acute Assessment and plan: As above. Ok to resume pradaxa. Appreciate hematology's input. (5) DVT prophylaxis Current Visit: Yes Status: Acute Assessment and plan: As above. Pradaxa restarted. High risk for clotting - Subjective Interval history: No acute events. He is having some significant abdominal pain this morning in the left upper and midabdomen. He has had no nausea or vomiting with the clear liquid diet. He has had a couple of bowel movements that did not look bloody exam. He has been resumed on his pradaxa - Constitutional Vitals: Temp Pulse Resp BP Pulse Ox 98.0 F 78 18 118/78 97 11/02/17 08:06 11/02/17 08:06 11/02/17 08:06 11/02/17 08:06 11/02/17 08:17 General appearance: Present: A&O X 3, answers questions appropriately Exam: GEN: NAD CVS: RRR. S1, S2, No m/r/g RESP: CTAB ABD: Soft, tender to palpation in the left side of the abdomen. No rebound tenderness. EXT: No edema. 2+ DP, No rashes NEURO: Nonfocal Internal Medicine: Result - Labs CBC & Chem 7: 11/02/17 08:11 11/02/17 03:43 Labs: Short CBC 11/02/17 11/02/17 Range/Units 03:43 08:11 WBC 13.3 H 10.6 (4.3-11.1) K/mcL Hgb 12.8 L 14.4 D (12.9-16.9) g/dL Hct 39.4 43.3 (37.5-50.1) % Plt Count 263 282 (140-400) K/mcL Neutrophils # 5.6 5.2 (1.6-8.9) K/mcL BMP 11/02/17 03:43 Sodium 141 Potassium 4.2 Chloride 107 Carbon Dioxide 27 BUN 16 Creatinine 1.01 Glucose 101 H Calcium 9.3 - ABG Interpretation ABG results: PT/INR, D-dimer PT 12.3 Seconds (9.4-12.1) H 10/30/17 18:54 D-Dimer 652 ng/mLFEU (0-500) H 10/31/17 18:33 - Impressions Impressions Abdomen/Pelvis CT 11/02/17 07:58 IMPRESSION: Postoperative changes of sigmoid colectomy. No acute process seen in the abdomen or pelvis. A 12 mm exophytic cystic focus posteriorly along the right kidney most likely represents a hemorrhagic or proteinaceous cyst. It appears stable from prior exams. Unchanged scattered varices along the gallbladder fossa. Postoperative change of splenectomy. D/ / 11/02/2017 09:11:31 Thierry Dior MD / [email or web address] Interpreting Provider: Thierry Dior MD - VTE Documentation of Mechanical Device: Intermittent pneumatic compression device Consult Discharge Plan - Plan Referrals: Cosme Gould Jr, MD [Primary Care Provider] -
[2017-11-02] MEDS: *HR* OxyCODONE/APAP 5/325 TABLET PO PRN ×2 (12:35→18:50)
[2017-11-03 06:11] LABS: BUN/Creatinine Ratio 11 (6-26); Blood Urea Nitrogen 11 mg/dL (8-26); Calcium 9.3 mg/dL (8.6-10.8); Carbon Dioxide 25 mEq/L (19-29); Chloride 105 mEq/L (98-109); Glucose 92 mg/dL (70-99); Osmolality,Calculated 291 (280-300); Potassium 4.5 mEq/L (3.5-4.5); Sodium 141 mEq/L (136-145); eGFR For African Americans > 60 (> 60); eGFR For Non-African Americans > 60 (> 60)
[2017-11-03 06:44] VITALS: BP 103/64
[2017-11-03] MEDS: Sucralfate 1 GM TABLET PO SCH (08:12)
[2017-11-03] MEDS: Metoprolol XL (24 HR) Succ 25 MG TAB.ER.24H PO SCH (08:12)
[2017-11-03] MEDS: *HR* Dabigatran 150 MG CAPSULE PO SCH (08:12)
[2017-11-03] MEDS: Nicotine 21 MG PATCH.TD24 TD SCH (08:13)
[2017-11-03] MEDS: *HR* OxyCODONE/APAP 5/325 TABLET PO PRN (08:18)
--- NOTE | 2017-11-03 08:18 | Discharge Summary ---
Date of Encounter: 11/03/17 Time of Encounter: 08:15 - Discharge Diagnosis (1) GI bleed Priority: Primary Status: Acute Qualifiers: GI bleed type/associated pathology: unspecified gastrointestinal hemorrhage type Qualified Code(s): K92.2 - Gastrointestinal hemorrhage, unspecified (2) Left ventricular thrombus Priority: Secondary Status: Acute (3) CAD (coronary artery disease) Priority: Primary Status: Chronic Qualifiers: Coronary Disease-Associated Artery/Lesion type: [place] artery [place] vs. transplanted heart: [place] heart Associated angina: without angina Qualified Code(s): I25.10 - Atherosclerotic heart disease of [place] coronary artery without angina pectoris (4) Hypercoagulable state Priority: Primary Status: Acute - Discharge Medications Home Medications: Citalopram Hydrobromide [Celexa] 40 mg PO BID 02/20/17 [History] Dabigatran [Pradaxa] 150 mg PO BID 02/25/17 [History] Atorvastatin [Lipitor] 40 mg PO HS #30 tablet 10/17/17 [Rx] Lisinopril [Zestril] 10 mg PO DAILY #30 tablet 10/17/17 [Rx] Metoprolol XL (24 HR) Succ [Toprol Xl] 12.5 mg PO DAILY #30 tab.er.24h 10/17/17 [Rx] Nicotine Patch [Nicoderm] 21 mg TD DAILY patch.td24 10/17/17 [Rx] Sucralfate [Carafate] 1 gm PO QIDAC #120 tablet 10/17/17 [Rx] Pantoprazole Sodium [Protonix] 40 mg PO DAILY 10/30/17 [History] Allergies/Adverse Reactions: 3 Allergy/AdvReac Type Severity Reaction Status Date / Time Penicillins Allergy Hives Verified 10/30/17 18:08 Procedures/tests Complete & Pending: Procedures Performed prior 72 hours Category Date Time Status CT abd pelvis wo no iv no oral [CT] Stat Cat Scan 11/02/17 07:58 Completed Date of admission: 10/31/17 05:15 Primary care physician: Cosme Gould Jr, MD Consults: 10/31/17 10:03 Consult to Oncology Hematology [CONS] Routine Consulting Provider: Thee Mora Reason for Consult: Known to you. Hypercoaguable state with multiple clots in the past. Failed many different therapies. Here with melena on Pradaxa. Help with anticoag Call Completed: No - Patient Status Disposition: Home, Self-Care Overall status at discharge: patient is back to baseline - Discharge Instructions Instructions: Gastrointestinal Bleeding (DC), Deep Venous Thrombosis (DC), Cigarette Smoking and Your Health, Beam Builder (GEN) Follow Up With: Cosme Gould Jr, MD [Primary Care Provider] - Connie Schulte CNP [Advanced Practice Nurse] - Additional Instructions: Regular Diet; Increase activity as tolerated - Diet and Activity Activity: increase activity as tolerated Diet: regular diet Hospital course: Mr. 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 He is also noted to have left ventricular apical thrombus. He was admitted for melena. Please note that the patient was recently admitted for GI bleed and an EGD showed severe esophagitis and gastritis. His anticoagulation was stopped for a few days and he was treated with IV Protonix and as he did not bleed and after that his anticoagulation was restarted. He also had a colonoscopy at that visit which came back unremarkable. He came back again with dark-colored bloody stools. He was admitted under the hospitalist service. His Pradaxa was held initially. We consulted with surgery. No intervention was done. He consulted with hematology. They recommended that Pradaxa be restarted once surgery felt safe. Given the fact that the patient has had no recurrence of his bleeding and his hemoglobin remained stable while Pradaxa was restarted, the patient ended up being discharged after he tolerated diet. We did not make any changes to his anticoagulation per hematology's recommendation as he has been tried on previously on many different anticoagulations and has had recurrence of bleeding episodes. He was stable for discharge on 11/03/2017 - Time Spent with Patient Total time spent providing and/or coordinating discharge services: - Constitutional Vitals: Temp Pulse Resp BP Pulse Ox 98.0 F 66 16 103/64 96 11/03/17 06:43 11/03/17 06:43 11/03/17 06:43 11/03/17 06:43 11/03/17 06:43 General appearance: Present: A&O X 3, answers questions appropriately Exam: GEN: NAD CVS: RRR. S1, S2, No m/r/g RESP: CTAB ABD: Soft, NT, ND, +BS EXT: No edema. 2+ DP, No rashes NEURO: Nonfocal - VTE Documentation of Mechanical Device: Intermittent pneumatic compression device
--- NOTE | 2017-11-03 18:13 | Oncology Inp Progress Note ---
Date of Encounter: 11/01/17 Time of Encounter: 14:00 (1) GI bleed Status: Acute Assessment and plan: We will continue Pradaxa and we will monitor him. He has gastritis and nonbleeding ulcer. He should heal with Carafate and Protonix Advised to avoid NSAIDs and strongly advised to quit smoking as both can reactivate his gastric ulcers Hemoglobin stable at 14.4 on discharge Qualifiers: GI bleed type/associated pathology: unspecified gastrointestinal hemorrhage type Qualified Code(s): K92.2 - Gastrointestinal hemorrhage, unspecified Oncology: Subj Interval history: No further GI bleeding. Continue to have pain in the left upper quadrant. No major nausea - Constitutional Vitals: Vital Signs Temp Pulse Resp BP Pulse Ox 11/03/17 06:43 98.0 F 66 16 103/64 96 11/03/17 03:10 97.7 F 74 18 111/73 97 11/03/17 00:20 98.0 F 72 18 112/71 96 11/02/17 19:13 97.9 F 103 18 147/96 98 Intake and Output 11/03/17 11/03/17 11/03/17 07:59 15:59 23:59 Intake Total 240 / 240 Output Total 400 / 400 525 / 525 Balance -400 / -400 -285 / -285 Intake: Oral 240 / 240 Output: Urine 400 / 400 525 / 525 Other: Meal Breakfast Percent of Meal Consumed 100% Weight 94.376 kg Patient Weight 11/03/17 23:59 Weight 94.376 kg Exam: GENERAL: Alert and oriented, well appearing. Mental Status: Affect appropriate for circumstances HEENT: Sclerae anicteric. No mucositis or thrush. No other oral or pharyngeal lesions or erythema. Skin: No rashes or petechiae. No evidence of skin malignancy Lymph nodes: No cervical, supraclavicular, axillary, or inguinal adenopathy. Lungs: Air entry normal with normal breath sounds. No rhonchi or wheezing Cardiovascular: Regular rate and rhythm. No skipped beats Abdomen: Soft, nontender; no organomegaly or masses palpable. Extremities: No edema. No calf swelling or tenderness. No joint deformity. Neurologic: Alert, cranial nerves II-XII intact; normal gait; no focal weakness or sensory abnormalities Oncology: Obj Data - Labs CBC & Chem 7: 11/02/17 08:11 11/03/17 05:38 Labs: Laboratory Results - last 24 hr 11/03/17 05:38 Sodium 141 Potassium 4.5 Chloride 105 Carbon Dioxide 25 BUN 11 Creatinine 1.04 Est GFR ( Amer) > 60 Est GFR (Non-Af Amer) > 60 BUN/Creatinine Ratio 11 Glucose 92 Calculated Osmolality 291 Calcium 9.3 - ABG Interpretation ABG results: PT/INR, D-dimer PT 12.3 Seconds (9.4-12.1) H 10/30/17 18:54 D-Dimer 652 ng/mLFEU (0-500) H 10/31/17 18:33 Consult Discharge Plan - Plan Instructions: Gastrointestinal Bleeding (DC), Deep Venous Thrombosis (DC), Cigarette Smoking and Your Health, Rn Oncology Research (GEN) Additional Instructions: Regular Diet; Increase activity as tolerated Referrals: Cosme Gould Jr, MD [Primary Care Provider] - Connie Schulte CNP [Advanced Practice Nurse] -
== END 2017-11-03 10:48 | disposition home or self-care (01) | DRG 378 ==
LOC: 3ANU 17:48 → EMEROO 17:48 → 3ANU 22:37 → SUATTDRO 10-31 05:15
PROVIDERS: ADMIT Family Medicine; ATTEND Internal Medicine

== ENCOUNTER 2021-05-08 17:55 | Inpatient (IN) ==
[2021-05-08 19:20] LABS: Basophils # 0.1 K/mcL (0.0-0.2); Basophils % 0.4 %; Eosinophils # 0.4 K/mcL (0.0-0.6); Eosinophils % 2.7 %; Hematocrit 44.9 % (37.5-50.1); Hemoglobin 14.8 g/dL (12.9-16.9); Immature Granulocytes % 0.2 % (0-4); Lymphocytes # 4.7 K/mcL (0.6-4.6); Mean Corpuscular Hemoglobin 28.5 pg (28.0-33.3); Mean Corpuscular Volume 86.3 fL (83.0-100.0); Mean Platelet Volume 8.5 fL (9.4-12.4); Monocytes # 1.2 K/mcL (0.0-1.3); Monocytes % 7.3 %; Platelet Count 175 K/mcL (140-400); Red Cell Distribution Width 14.4 % (11.5-14.5); Segmented Neutrophils % 60.4 %; White Blood Count 16.3 K/mcL (4.3-11.1)
[2021-05-08 19:23] LABS: Neutrophils # 9.9 K/mcL (1.6-8.9)
[2021-05-08 19:27] LABS: INR 1.2; Prothrombin Time 14.1 Seconds (9.4-12.1)
[2021-05-08 19:29] LABS: Activated Partial Thrombo Time 35.9 Seconds (26.0-36.0)
[2021-05-08 19:38] LABS: Platelet Estimate Normal (Normal); Reactive Lymphocytes Present (Not Present)
[2021-05-08 19:42] LABS: BUN/Creatinine Ratio 8 (6-26); Blood Urea Nitrogen 10 mg/dL (6-20); Calcium 9.9 mg/dL (8.6-10.3); Carbon Dioxide 26 mEq/L (23-29); Chloride 105 mEq/L (98-107); Glucose 85 mg/dL (70-105); Osmolality,Calculated 284 (280-300); Potassium 4.5 mEq/L (3.5-5.1); Sodium 138 mEq/L (136-145); eGFR For African Americans > 60 (> 60); eGFR For Non-African Americans > 60 (> 60)
[2021-05-08] MEDS ORDERED: Naloxone 0.4 MG/ML INJ IVP PRN (21:24)
[2021-05-08 22:01] LABS: Adenovirus Not Detected (Not Detect); Coronavirus 229E Not Detected (Not Detect); Coronavirus HKU1 Not Detected (Not Detect); Coronavirus NL63 Not Detected (Not Detect); Coronavirus OC43 Not Detected (Not Detect); SARS-CoV-2 Not Detected (Not Detect)
[2021-05-08 22:02] LABS: Bordetella Pertussis Not Detected (Not Detect); Chlamydophila pneumoniae Not Detected (Not Detect); Human Metapneumovirus Not Detected (Not Detect); Human Rhinovirus/Enterovirus Not Detected (Not Detect); Influenza A Subtype 2009 H1 Not Detected (Not Detect); Influenza B Not Detected (Not Detect); Mycoplasma pneumoniae Not Detected (Not Detect); Parainfluenza Virus 1 Not Detected (Not Detect); Parainfluenza Virus 2 Not Detected (Not Detect); Parainfluenza Virus 3 Not Detected (Not Detect); Parainfluenza Virus 4 Not Detected (Not Detect); Respiratory Syncytial Virus Not Detected (Not Detect)
[2021-05-08] MEDS ORDERED: Perflutren Lipid Microsphere 1.3 ML in 0.9 % Sodium Chloride 8.7 ML IVP PRN (23:05)
[2021-05-08] MEDS ORDERED: Apixaban 5 MG TABLET PO SCH (23:15)
[2021-05-08] MEDS ORDERED: Ondansetron 4 MG/2 ML VIAL IVP PRN (23:39)
[2021-05-09] MEDS ORDERED: Apixaban 5 MG TABLET PO STA (01:52)
[2021-05-09 03:45] LABS: Immature Granulocytes % 0.3 % (0-4)
[2021-05-09 03:46] LABS: Basophils # 0.1 K/mcL (0.0-0.2); Basophils % 0.6 %; Eosinophils # 0.5 K/mcL (0.0-0.6); Eosinophils % 3.6 %; Hematocrit 44.1 % (37.5-50.1); Hemoglobin 14.8 g/dL (12.9-16.9); Immature Platelets 3.8 % (1.1-6.1); Lymphocytes # 5.1 K/mcL (0.6-4.6); Lymphocytes % 36.1 %; Mean Corpuscular HGB Conc 33.6 g/dL (31.6-35.5); Mean Corpuscular Hemoglobin 28.8 pg (28.0-33.3); Mean Corpuscular Volume 85.8 fL (83.0-100.0); Mean Platelet Volume 10.2 fL (9.4-12.4); Monocytes # 1.2 K/mcL (0.0-1.3); Monocytes % 8.3 %; Neutrophils # 7.3 K/mcL (1.6-8.9); Platelet Count 161 K/mcL (140-400); Red Blood Count 5.14 M/mcL (4.19-5.50); Red Cell Distribution Width 14.3 % (11.5-14.5); Segmented Neutrophils % 51.1 %; White Blood Count 14.2 K/mcL (4.3-11.1)
[2021-05-09 04:05] LABS: Alanine Aminotransferase 31 Units/L (7-52); Albumin 4.1 g/dL (3.5-5.7); Albumin/Globulin Ratio 1.5 (1.1-2.2); Alkaline Phosphatase 64 Units/L (34-104); Aspartate Amino Transferase 17 Units/L (13-39); BUN/Creatinine Ratio 12 (6-26); Bilirubin,Total 0.5 mg/dL (0.3-1.0); Blood Urea Nitrogen 13 mg/dL (6-20); Calcium 9.5 mg/dL (8.6-10.3); Carbon Dioxide 24 mEq/L (23-29); Chloride 105 mEq/L (98-107); Globulin 2.8 g/dL (2.4-3.5); Glucose 142 mg/dL (70-105); Osmolality,Calculated 289 (280-300); Potassium 3.6 mEq/L (3.5-5.1); Sodium 138 mEq/L (136-145); Total Protein 6.9 g/dL (6.4-8.9); eGFR For African Americans > 60 (> 60); eGFR For Non-African Americans > 60 (> 60)
[2021-05-09 04:18] LABS: Platelet Estimate Normal (Normal); Reactive Lymphocytes Present (Not Present)
[2021-05-09 05:57] LABS: INR 1.4; Prothrombin Time 15.5 Seconds (9.4-12.1)
[2021-05-09 06:00] LABS: Activated Partial Thrombo Time 36.9 Seconds (26.0-36.0)
[2021-05-09] MEDS: Nicotine 21 MG PATCH.TD24 TD SCH (12:13)
[2021-05-09] MEDS ORDERED: *HR* Heparin 5,000 UNIT/ML VIAL IVP ONE (14:00)
[2021-05-09] MEDS ORDERED: Apixaban 5 MG TABLET PO SCH (14:00)
[2021-05-09] MEDS ORDERED: Heparin 25,000UNIT/250ML 1/2NS 25,000 UNIT/250 ML IV.SOLN IVC SCH (14:00)
[2021-05-09] MEDS ORDERED: *HR* Heparin 5,000 UNIT/ML VIAL IVP PRN ×2 (14:00)
[2021-05-09] MEDS: Heparin 25,000UNIT/250ML 1/2NS 25,000 UNIT/250 ML IV.SOLN IVC SCH (14:04)
[2021-05-09] MEDS ORDERED: Warfarin perPT PO PRN (18:00)
[2021-05-09] MEDS ORDERED: *HR* Warfarin 5 MG TABLET PO ONE (18:00)
[2021-05-09] MEDS: Acetaminophen 325 MG TABLET PO PRN (20:57)
[2021-05-09] MEDS: QUEtiapine Fumarate 25 MG TABLET PO SCH (22:45)
[2021-05-09] MEDS: traZODone 50 MG TABLET PO SCH (22:45)
[2021-05-10 04:50] LABS: INR 1.2; Prothrombin Time 13.4 Seconds (9.4-12.1)
[2021-05-10] MEDS: Nicotine 21 MG PATCH.TD24 TD SCH (08:13)
[2021-05-10] MEDS: traZODone 50 MG TABLET PO SCH (08:13)
[2021-05-10] MEDS: QUEtiapine Fumarate 25 MG TABLET PO SCH (08:14)
[2021-05-10] MEDS: Acetaminophen 325 MG TABLET PO PRN (08:15)
[2021-05-10] MEDS: Sacubitril/Valsartan 49/51 MG 1 TABLET PO SCH ×2 (15:21→22:09)
[2021-05-10] MEDS: carvediloL 25 MG TABLET PO SCH (15:56)
[2021-05-10] MEDS ORDERED: *HR* OxyCODONE/APAP 5/325 TABLET PO ONE (16:37)
[2021-05-10] MEDS: Heparin 25,000UNIT/250ML 1/2NS 25,000 UNIT/250 ML IV.SOLN IVC SCH (17:46)
[2021-05-10] MEDS ORDERED: *HR* Warfarin 5 MG TABLET PO ONE (18:00)
[2021-05-10] MEDS: IVABRADINE HCL 7.5 MG TABLET PO SCH (22:09)
[2021-05-11 05:57] LABS: Basophils # 0.1 K/mcL (0.0-0.2); Basophils % 0.7 %; Eosinophils # 0.6 K/mcL (0.0-0.6); Eosinophils % 4.7 %; Hematocrit 45.8 % (37.5-50.1); Hemoglobin 15.5 g/dL (12.9-16.9); Immature Granulocytes % 0.2 % (0-4); Lymphocytes # 6.1 K/mcL (0.6-4.6); Lymphocytes % 50.5 %; Mean Corpuscular HGB Conc 33.8 g/dL (31.6-35.5); Mean Corpuscular Hemoglobin 28.7 pg (28.0-33.3); Mean Corpuscular Volume 84.8 fL (83.0-100.0); Mean Platelet Volume 8.8 fL (9.4-12.4); Monocytes # 0.8 K/mcL (0.0-1.3); Monocytes % 6.7 %; Neutrophils # 4.5 K/mcL (1.6-8.9); Platelet Count 217 K/mcL (140-400); Red Cell Distribution Width 14.2 % (11.5-14.5); Segmented Neutrophils % 37.2 %
[2021-05-11 06:04] LABS: Platelet Estimate Normal (Normal); Reactive Lymphocytes Present (Not Present)
[2021-05-11 06:09] LABS: INR 1.1; Prothrombin Time 13.2 Seconds (9.4-12.1)
[2021-05-11 06:13] LABS: BUN/Creatinine Ratio 14 (6-26); Blood Urea Nitrogen 16 mg/dL (6-20); Calcium 9.4 mg/dL (8.6-10.3); Carbon Dioxide 23 mEq/L (23-29); Chloride 107 mEq/L (98-107); Glucose 136 mg/dL (70-105); Osmolality,Calculated 287 (280-300); Sodium 137 mEq/L (136-145); eGFR For African Americans > 60 (> 60); eGFR For Non-African Americans > 60 (> 60)
[2021-05-11] MEDS: Budesonide/Formoterol 160/4.5 1 PUFF INH IH SCH ×2 (07:29→20:01)
[2021-05-11] MEDS: carvediloL 25 MG TABLET PO SCH ×2 (08:05→18:32)
[2021-05-11] MEDS: Nicotine 21 MG PATCH.TD24 TD SCH (08:06)
[2021-05-11] MEDS: Sacubitril/Valsartan 49/51 MG 1 TABLET PO SCH ×2 (08:06→20:36)
[2021-05-11] MEDS: Spironolactone 25 MG TABLET PO SCH (08:06)
[2021-05-11] MEDS ORDERED: IVABRADINE HCL 7.5 MG TABLET PO SCH (09:00)
[2021-05-11] MEDS: Heparin 25,000UNIT/250ML 1/2NS 25,000 UNIT/250 ML IV.SOLN IVC SCH (14:35)
[2021-05-11] MEDS ORDERED: *HR* Warfarin 7.5 MG TABLET PO ONE (18:00)
[2021-05-11] MEDS: traZODone 50 MG TABLET PO SCH (20:36)
[2021-05-11] MEDS: QUEtiapine Fumarate 25 MG TABLET PO SCH (20:36)
[2021-05-11] MEDS: IVABRADINE HCL 7.5 MG TABLET PO SCH (21:39)
[2021-05-12 03:09] LABS: Basophils # 0.1 K/mcL (0.0-0.2); Basophils % 0.7 %; Eosinophils # 0.5 K/mcL (0.0-0.6); Eosinophils % 3.3 %; Hematocrit 49.2 % (37.5-50.1); Immature Granulocytes % 0.3 % (0-4); Lymphocytes % 48.7 %; Mean Corpuscular HGB Conc 32.5 g/dL (31.6-35.5); Mean Corpuscular Hemoglobin 28.2 pg (28.0-33.3); Mean Corpuscular Volume 86.6 fL (83.0-100.0); Mean Platelet Volume 8.4 fL (9.4-12.4); Monocytes # 0.9 K/mcL (0.0-1.3); Neutrophils # 6.2 K/mcL (1.6-8.9); Platelet Count 224 K/mcL (140-400); Red Blood Count 5.68 M/mcL (4.19-5.50); Red Cell Distribution Width 14.5 % (11.5-14.5); White Blood Count 15.1 K/mcL (4.3-11.1)
[2021-05-12 03:10] LABS: Lymphocytes # 7.4 K/mcL (0.6-4.6)
[2021-05-12 03:15] LABS: INR 1.4; Prothrombin Time 15.5 Seconds (9.4-12.1)
[2021-05-12 03:17] LABS: Activated Partial Thrombo Time 92.6 Seconds (26.0-36.0)
[2021-05-12 03:29] LABS: BUN/Creatinine Ratio 12 (6-26); Blood Urea Nitrogen 14 mg/dL (6-20); Calcium 9.4 mg/dL (8.6-10.3); Carbon Dioxide 20 mEq/L (23-29); Chloride 107 mEq/L (98-107); Glucose 104 mg/dL (70-105); Osmolality,Calculated 287 (280-300); Potassium 4.3 mEq/L (3.5-5.1); Sodium 138 mEq/L (136-145); eGFR For African Americans > 60 (> 60); eGFR For Non-African Americans > 60 (> 60)
[2021-05-12 03:57] LABS: Platelet Estimate Normal (Normal); Reactive Lymphocytes Present (Not Present)
[2021-05-12] MEDS: Heparin 25,000UNIT/250ML 1/2NS 25,000 UNIT/250 ML IV.SOLN IVC SCH ×2 (07:26→12:01)
[2021-05-12] MEDS: Sacubitril/Valsartan 49/51 MG 1 TABLET PO SCH ×2 (07:37→20:15)
[2021-05-12] MEDS: Spironolactone 25 MG TABLET PO SCH (07:38)
[2021-05-12] MEDS: carvediloL 25 MG TABLET PO SCH ×2 (07:38→16:34)
[2021-05-12] MEDS: Nicotine 21 MG PATCH.TD24 TD SCH (07:38)
[2021-05-12] MEDS: Budesonide/Formoterol 160/4.5 1 PUFF INH IH SCH ×2 (07:41→20:00)
[2021-05-12] MEDS: Acetaminophen 325 MG TABLET PO PRN (07:52)
[2021-05-12] MEDS: *HR* HYDROcodone/Acet 5/325 mg TABLET PO PRN ×2 (12:00→17:52)
[2021-05-12] MEDS ORDERED: *HR* Warfarin 7.5 MG TABLET PO ONE (18:00)
[2021-05-12] MEDS: traZODone 50 MG TABLET PO SCH (20:15)
[2021-05-12] MEDS: QUEtiapine Fumarate 25 MG TABLET PO SCH (20:15)
[2021-05-12] MEDS: IVABRADINE HCL 7.5 MG TABLET PO SCH (20:16)
[2021-05-13 02:59] LABS: Basophils # 0.1 K/mcL (0.0-0.2); Basophils % 0.7 %; Eosinophils # 0.5 K/mcL (0.0-0.6); Hematocrit 43.7 % (37.5-50.1); Immature Granulocytes % 0.2 % (0-4); Lymphocytes # 6.5 K/mcL (0.6-4.6); Lymphocytes % 43.6 %; Mean Corpuscular Hemoglobin 28.3 pg (28.0-33.3); Mean Platelet Volume 8.8 fL (9.4-12.4); Monocytes % 6.9 %; Neutrophils # 6.8 K/mcL (1.6-8.9); Platelet Count 243 K/mcL (140-400); Red Blood Count 5.08 M/mcL (4.19-5.50); Red Cell Distribution Width 14.3 % (11.5-14.5); Segmented Neutrophils % 45.6 %; White Blood Count 14.9 K/mcL (4.3-11.1)
[2021-05-13 03:07] LABS: Hemoglobin 14.4 g/dL (12.9-16.9)
[2021-05-13 03:12] LABS: Platelet Estimate Normal (Normal); Reactive Lymphocytes Present (Not Present)
[2021-05-13 03:13] LABS: INR 2.4; Prothrombin Time 26.7 Seconds (9.4-12.1)
[2021-05-13 03:15] LABS: Magnesium 1.9 mg/dL (1.6-2.6); Phosphorous 3.7 mg/dL (2.7-4.5)
[2021-05-13 03:17] LABS: BUN/Creatinine Ratio 12 (6-26); Blood Urea Nitrogen 16 mg/dL (6-20); Calcium 9.2 mg/dL (8.6-10.3); Carbon Dioxide 23 mEq/L (23-29); Chloride 108 mEq/L (98-107); Glucose 107 mg/dL (70-105); Osmolality,Calculated 290 (280-300); Potassium 4.6 mEq/L (3.5-5.1); Sodium 139 mEq/L (136-145); eGFR For African Americans > 60 (> 60); eGFR For Non-African Americans > 60 (> 60)
[2021-05-13 03:28] LABS: Activated Partial Thrombo Time 149.5 Seconds (26.0-36.0)
[2021-05-13] MEDS: Budesonide/Formoterol 160/4.5 1 PUFF INH IH SCH (07:35)
[2021-05-13] MEDS: carvediloL 25 MG TABLET PO SCH (08:07)
[2021-05-13] MEDS: Nicotine 21 MG PATCH.TD24 TD SCH (08:07)
[2021-05-13] MEDS: *HR* HYDROcodone/Acet 5/325 mg TABLET PO PRN (08:08)
[2021-05-13] MEDS: Sacubitril/Valsartan 49/51 MG 1 TABLET PO SCH (08:08)
[2021-05-13] MEDS: Spironolactone 25 MG TABLET PO SCH (08:08)
[2021-05-13] MEDS: Heparin 25,000UNIT/250ML 1/2NS 25,000 UNIT/250 ML IV.SOLN IVC SCH (10:56)
[2021-05-13 11:34] VITALS: BP 108/77
[2021-05-16] MEDS ORDERED: Apixaban 5 MG TABLET PO SCH (09:00)
== END 2021-05-13 13:25 | disposition home or self-care (01) | DRG 175 ==
LOC: CDU 17:55 → EMEROOARM 17:55 → SUATTDRO 22:25 → CDU 23:33 → 2ANU 05-09 16:54 → SUATTDRO 05-10 16:48
PROVIDERS: ADMIT Student in an Organized Health Care Education/Training Program; ATTEND Internal Medicine

== ENCOUNTER 2021-05-22 05:31 | Observation (INO) ==
[2021-05-22 06:03] LABS: Basophils # 0.1 K/mcL (0.0-0.2); Basophils % 0.7 %; Eosinophils # 0.5 K/mcL (0.0-0.6); Eosinophils % 2.8 %; Hematocrit 41.3 % (37.5-50.1); Hemoglobin 13.7 g/dL (12.9-16.9); Immature Granulocytes % 0.3 % (0-4); Lymphocytes # 4.9 K/mcL (0.6-4.6); Lymphocytes % 29.1 %; Mean Corpuscular HGB Conc 33.2 g/dL (31.6-35.5); Mean Corpuscular Hemoglobin 28.5 pg (28.0-33.3); Mean Platelet Volume 8.3 fL (9.4-12.4); Monocytes # 1.7 K/mcL (0.0-1.3); Monocytes % 9.9 %; Neutrophils # 9.6 K/mcL (1.6-8.9); Platelet Count 283 K/mcL (140-400); Red Cell Distribution Width 14.1 % (11.5-14.5); Segmented Neutrophils % 57.2 %; White Blood Count 16.9 K/mcL (4.3-11.1)
[2021-05-22 06:24] LABS: BUN/Creatinine Ratio 11 (6-26); Blood Urea Nitrogen 16 mg/dL (6-20); Calcium 8.8 mg/dL (8.6-10.3); Carbon Dioxide 26 mEq/L (23-29); Chloride 106 mEq/L (98-107); Glucose 90 mg/dL (70-105); Osmolality,Calculated 285 (280-300); Potassium 5.3 mEq/L (3.5-5.1); Sodium 137 mEq/L (136-145); Troponin I < 0.03 ng/mL (< 0.04); eGFR For African Americans > 60 (> 60); eGFR For Non-African Americans 54 (> 60)
[2021-05-22] MEDS ORDERED: Isovue-370 500 ML BOTTLE IVP ONE (06:24)
[2021-05-22] MEDS ORDERED: *HR* HYDROmorphone (PF) 1 MG/ML SYRINGE IVP ONE ×2 (06:25→08:10)
[2021-05-22 06:35] LABS: INR 2.5; Prothrombin Time 28.7 Seconds (9.4-12.1)
[2021-05-22 06:38] LABS: Activated Partial Thrombo Time 44.4 Seconds (26.0-36.0)
[2021-05-22] MEDS ORDERED: Azithromycin 500 MG in 0.9 % Sodium Chloride 250 ML IVPB ONE (07:14)
[2021-05-22] MEDS ORDERED: cefTRIAXone 1,000 MG in 0.9 % Sodium Chloride Mini Bag 100 ML IVPB ONE (07:14)
[2021-05-22] MEDS ORDERED: Ondansetron 4 MG/2 ML VIAL IVP PRN (08:13)
[2021-05-22] MEDS ORDERED: *HR* HYDROcodone/Acet 5/325 mg TABLET PO PRN (08:13)
[2021-05-22] MEDS ORDERED: Naloxone 0.4 MG/ML INJ IVP PRN (08:13)
[2021-05-22] MEDS ORDERED: Nitroglycerin 0.4 MG TAB.SUBL SL PRN (08:16)
[2021-05-22] MEDS ORDERED: Ipratropium/Albuterol Neb 3 ML IH PRN (08:17)
[2021-05-22] MEDS ORDERED: IVABRADINE HCL 7.5 MG TABLET PO SCH (09:00)
[2021-05-22] MEDS ORDERED: carvediloL 25 MG TABLET PO SCH (09:00)
[2021-05-22] MEDS: traZODone 50 MG TABLET PO SCH (09:49)
[2021-05-22] MEDS: QUEtiapine Fumarate 25 MG TABLET PO SCH (09:49)
[2021-05-22] MEDS: *HR* OxyCODONE Immed Rel 5 MG TABLET PO PRN (15:43)
[2021-05-22] MEDS ORDERED: Warfarin perPT PO SCH (18:00)
[2021-05-22] MEDS ORDERED: *HR* Warfarin 5 MG TABLET PO ONE (18:00)
[2021-05-23] MEDS: *HR* OxyCODONE Immed Rel 5 MG TABLET PO PRN ×2 (00:05→08:48)
[2021-05-23 02:33] LABS: Basophils # 0.1 K/mcL (0.0-0.2); Basophils % 0.9 %; Eosinophils # 0.7 K/mcL (0.0-0.6); Eosinophils % 4.3 %; Hematocrit 42.5 % (37.5-50.1); Hemoglobin 13.9 g/dL (12.9-16.9); Immature Granulocytes % 0.4 % (0-4); Lymphocytes # 6.6 K/mcL (0.6-4.6); Lymphocytes % 43.2 %; Mean Corpuscular HGB Conc 32.7 g/dL (31.6-35.5); Mean Corpuscular Volume 85.7 fL (83.0-100.0); Mean Platelet Volume 8.7 fL (9.4-12.4); Monocytes # 1.2 K/mcL (0.0-1.3); Neutrophils # 6.6 K/mcL (1.6-8.9); Platelet Count 328 K/mcL (140-400); Red Blood Count 4.96 M/mcL (4.19-5.50); Red Cell Distribution Width 14.1 % (11.5-14.5); Segmented Neutrophils % 43.2 %; White Blood Count 15.3 K/mcL (4.3-11.1)
[2021-05-23 02:41] LABS: INR 2.4; Prothrombin Time 27.1 Seconds (9.4-12.1)
[2021-05-23 02:51] LABS: BUN/Creatinine Ratio 13 (6-26); Blood Urea Nitrogen 17 mg/dL (6-20); Calcium 8.9 mg/dL (8.6-10.3); Carbon Dioxide 24 mEq/L (23-29); Chloride 106 mEq/L (98-107); Glucose 82 mg/dL (70-105); Magnesium 2.2 mg/dL (1.6-2.6); Osmolality,Calculated 287 (280-300); Phosphorous 3.8 mg/dL (2.7-4.5); Potassium 4.4 mEq/L (3.5-5.1); Sodium 138 mEq/L (136-145); eGFR For African Americans > 60 (> 60); eGFR For Non-African Americans > 60 (> 60)
[2021-05-23 08:36] LABS: Troponin I < 0.03 ng/mL (< 0.04)
[2021-05-23] MEDS: QUEtiapine Fumarate 25 MG TABLET PO SCH (08:46)
[2021-05-23] MEDS: traZODone 50 MG TABLET PO SCH (08:47)
[2021-05-23 10:49] VITALS: BP 108/74
[2021-05-23] MEDS ORDERED: *HR* Warfarin 5 MG TABLET PO ONE (18:00)
== END 2021-05-23 14:13 | disposition home or self-care (01) ==
LOC: CDU 05:31 → 3ANU 05:31 → EMEROOARM 05:31 → SUATTDRO 10:04 → 3ANU 10:31
PROVIDERS: ADMIT Internal Medicine; ATTEND Pharmacist